=== PATIENT | male | born 1960 | race Caucasian/White ===

== ENCOUNTER 2016-12-17 10:43 | Inpatient (IN) | payer OTHER ==
[2016-12-17 11:10] VITALS: BMI 24.0
--- NOTE | 2016-12-17 12:51 | HP ---
CIWA Score - CIWA Score Nausea/Vomitin Muscle Tremors: 3 Anxiety: 3 Agitation: 2 Paroxysmal Sweats: 1-Minimal Palms Moist Orientation: 0-Oriented Tacttile Disturbances: 1-Very Mild Itch/Numbness Auditory Disturbances: 1-Very Mild Visual Disturbances: 1-Very Mild Sensitivity Headache: 2-Mild CIWA-Ar Total Score: 17 Admission ROS BHS - HPI Chief Complaint: i need help to stop drinking alcohol Allergies/Adverse Reactions: Allergies Allergy/AdvReac Type Severity Reaction Status Date / Time No Known Allergies Allergy Verified 12/17/16 12:40 History of Present Illness: this 56 years old male with alcohol dependence,seeking detox from alcohol,last detox [facility] 10/02/15 to 10/05/15 syncope alcohol related low back pain s/p back surgery depression hiv since 1989 ambulation with [employer] screening Have you traveled outside of the country in the last 21 days: No Have you had contact with anyone from an Ebola affected area: No Have you been sick,other than usual withdrawal symptoms: No - Review of Systems Constitutional: Loss of Appetite, Malaise, Night Sweats, Changes in sleep EENT: reports: No Symptoms Reported, Nose Congestion Respiratory: reports: No Symptoms reported Cardiac: reports: No Symptoms Reported GI: reports: Nausea, Poor Appetite, Abdominal cramping : reports: No Symptoms Reported Musculoskeletal: reports: Back Pain, Muscle Pain Integumentary: reports: Dryness Endocrine: reports: No Symptoms Reported Hematology: reports: No Symptoms Reported, Other (hiv) Psychiatric: reports: No Sypmtoms Reported, Judgement Intact, Mood/Affect Appropiate, Orientated x3, Depressed Patient History - Patient Medical History Hx Asthma: Yes Hx Chronic Obstructive Pulmonary Disease (COPD): No Hx Cardiac Disorders: No Hx Hypertension: No Hx Seizures: No Hx Diabetes: No Hx Gastrointestinal Disorders: No Hx Genitourinary Disorders: No Hx Sexually Transmitted Disorders: No Hx Renal Disease (ESRD): No Hx Human Immunodeficiency Virus (HIV): Yes (since 1989) Hx Hepatitis C: No Hx Depression: Yes (insomnia) Hx Suicide Attempt: No Hx Bipolar Disorder: No Hx Schizophrenia: No Other Medical History: no suicidal,no homicidal - Patient Surgical History Past Surgical History: Yes Hx Neurologic Surgery: No Hx Cataract Extraction: No Hx Cardiac Surgery: No Hx Lung Surgery: No Hx Breast Surgery: No Hx Breast Biopsy: No Hx Abdominal Surgery: No Hx Appendectomy: No Hx Cholecystectomy: No Hx Genitourinary Surgery: Yes (s/p lithotripsy) Hx Section: No Hx Orthopedic Surgery: No Other Surgical History: strabismus correction in childhood.,surgery of back Anesthesia Reaction: No - PPD History Previous Implant?: Yes Documented Results: Negative w/o proof Implanted On Prior [facility] Admission?: Yes Date: 10/04/15 PPD to be Administered?: Yes - Smoking Cessation Smoking history: Current every day smoker Have you smoked in the past 12 months: Yes Aproximately how many cigarettes per day: 20 Hx Chewing Tobacco Use: No Initiated information on smoking cessation: Yes 'Breaking Loose' booklet given: 12/17/16 - Substance & Tx. History Hx Alcohol Use: Yes Hx Substance Use: No Substance Use Type: Alcohol Hx Substance Use Treatment: Yes (last 10/02/15 to 10/05/15) - Substances Abused Alcohol Route: Oral Frequency: Daily Amount used: 2-3 pints gin or rum Age of first use: 9 Date of Last Use: 12/16/16 Family Disease History - Family Disease History Family History: Denies Admission Physical Exam S - Vital Signs Vital Signs: Vital Signs - 24 hr 12/17/16 11:07 Temperature 96.9 F L Pulse Rate 77 Respiratory 20 Rate Blood Pressure 145/100 - Physical General Appearance: Yes: Moderate Distress, Tremorous, Irritable, Sweating, Anxious HEENTM: Yes: Normal ENT Inspection, MARIO, Pharynx Normal Respiratory: Yes: Lungs Clear, Normal Breath Sounds, No Respiratory Distress Neck: Yes: No masses,lesions,Nodules, Supple, Trachea in good position Breast: Yes: Within Normal Limits Cardiology: Yes: Within Normal Limits, Regular Rhythm, Regular Rate, S1, S2 Abdominal: Yes: Within Normal Limits, Normal Bowel Sounds, Non Tender, Flat, Soft Genitourinary: Yes: Within Normal Limits Back: Yes: Muscle Spasm, Surgical Scar Musculoskeletal: Yes: Back pain, Muscle Pain Extremities: Yes: Tremors 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 NML intact, Fully Oriented, Alert, Motor Strength 5/5 Integumentary: Yes: Dry - Diagnostic (1) MDD (major depressive disorder) Current Visit: No Status: Acute (2) Nicotine dependence Current Visit: Yes Status: Chronic (3) Alcohol dependence with uncomplicated withdrawal Current Visit: Yes Status: Chronic (4) Arthritis Current Visit: Yes Status: Chronic (5) HIV (human immunodeficiency virus infection) Current Visit: No Status: Chronic (6) Insomnia Current Visit: No Status: Chronic (7) Low back pain Current Visit: Yes Status: Acute (8) Previous back surgery Current Visit: Yes Status: Chronic (9) Use of cane as ambulatory aid Current Visit: Yes Status: Acute Cleared for Admission [facility] - Detox or Rehab [facility] Level of Care: Medically Managed Detox Regimen/Protocol: Librium [facility] Breath Alcohol Content Breath Alcohol Content: 0.035 Urine Drug Screen - Results Drug Screen Negative: Yes
[2016-12-17] MEDS ORDERED: chlordiazePOXIDE HCL 25 MG CAPSULE PO PRN (13:03)
[2016-12-17] MEDS ORDERED: ACETAMINOPHEN 325 MG TABLET (FP) PO PRN (13:03)
[2016-12-17] MEDS ORDERED: hydrOXYzine PAMOATE 50 MG CAPSULE (FP) PO PRN (13:03)
[2016-12-17] MEDS ORDERED: guaiFENesin/D-METHORPHAN HB 10 ML UNIT-DOSE CUPS PO PRN (13:03)
[2016-12-17] MEDS ORDERED: MAGNESIUM CITRATE 300 ML BOTTLE PO PRN (13:03)
[2016-12-17] MEDS ORDERED: P-EPHED 60MG/TRIPROLIDI 2.5MG TABLET PO PRN (13:03)
[2016-12-17] MEDS ORDERED: MAGNESIUM HYDROX 2400MG/30ML ORAL SUSPENSION 30 ML CUP PO PRN (13:03)
[2016-12-17] MEDS ORDERED: MENTHOL/PHENOL 1 EACH UD MM PRN (13:03)
[2016-12-17] MEDS ORDERED: IBUPROFEN 400 MG TABLET (FP) PO PRN (13:03)
[2016-12-17] MEDS ORDERED: LOPERAMIDE HCL 2 MG CAPSULE PO PRN (13:03)
[2016-12-17] MEDS ORDERED: chlordiazePOXIDE HCL 25 MG CAPSULE PO ONE (13:52)
[2016-12-17] MEDS: NICOTINE 21 MG/24 HOURS TOPICAL PATCH TD SCH (15:21)
--- NOTE | 2016-12-17 16:09 | CONSULT ---
[facility] Psychiatric Consult - Data Date of interview: 12/17/16 Admission source: [facility] Identifying data: The patient is 56 yo H male,supported by [facility], unemployed,domiciled admitted for Alcohol dpendence. Substance Abuse History: REports drinking since 12 years old,progressively , currently up to gallon of Baccardi daily. Medical History: Significant for HIV+,Low back pain,H/O Low back surgery . Psychiatric History: REports long history of depression with 4 previous psychiatric hospitalizations.Dx with MDD,has been on different antidepressants.Patient sees psychiatrist at [facility].Current medications: Neurontin 600 mg po tid,Ambien 10 mg po hs PRN for insomnia. Physical/Sexual Abuse/Trauma History: denies Mental Status Exam - Mental Status Exam Alert and Oriented to: Time, Place, Person Cognitive Function: Grossly Intact Patient Appearance: Unkempt Mood: Sad, Anxious Affect: Mood Congruent Patient Behavior: Cooperative Speech Pattern: Clear Voice Loudness: Normal Thought Process: Goal Oriented Thought Disorder: Not Present Hallucinations: Denies Suicidal Ideation: Denies Homicidal Ideation: Denies Insight/Judgement: Fair Sleep: Difficulty falling asleep Appetite: Good Muscle strength/Tone: Normal Gait/Station: Normal Psychiatric Findings - Problem List ([place] 1, 2,3) (1) Previous back surgery Current Visit: Yes Status: Chronic (2) Nicotine dependence Current Visit: Yes Status: Chronic (3) Alcohol dependence with uncomplicated withdrawal Current Visit: Yes Status: Chronic (4) Arthritis Current Visit: Yes Status: Chronic (5) Low back pain Current Visit: Yes Status: Chronic (6) MDD (major depressive disorder) Current Visit: Yes Status: Chronic - Initial Treatment Plan Initial Treatment Plan: Continue Neurontin 600 mg po tid.Add Ambien 10 mg po hs PRN for insomnia.Will monitor progress.
[2016-12-17] MEDS: chlordiazePOXIDE HCL 25 MG CAPSULE PO SCH ×2 (17:38→22:17)
[2016-12-17 18:24] LABS: URINE APPEARANCE CLEAR; URINE BILIRUBIN NEGATIVE (NEGATIVE); URINE COLOR LTYELLOW; URINE GLUCOSE (UA) NEGATIVE (NEGATIVE); URINE KETONE 1+ (NEGATIVE); URINE LEUK ESTERASE NEGATIVE (NEGATIVE); URINE NITRITE NEGATIVE (NEGATIVE); URINE PROTEIN NEGATIVE (NEGATIVE); URINE UROBILINOGEN NEGATIVE E.U./dl (0.2-1.0)
[2016-12-17 18:27] LABS: URINE BLOOD 1+ (NEGATIVE)
[2016-12-17 18:32] LABS: URINE MUCUS RARE; URINE RBC 2 /hpf (0-3); URINE WBC 4 /hpf (3-5)
[2016-12-17] MEDS: GABAPENTIN 300 MG CAPSULE (FP) PO SCH (22:17)
[2016-12-17] MEDS: ZOLPIDEM TARTRATE 10 MG TABLET (PARK CARE ONLY) PO PRN (22:17)
[2016-12-17] MEDS: THIAMINE HCL 100 MG TABLET (FP) PO SCH (22:17)
[2016-12-18] MEDS: chlordiazePOXIDE HCL 25 MG CAPSULE PO SCH ×4 (05:40→22:23)
[2016-12-18] MEDS: GABAPENTIN 300 MG CAPSULE (FP) PO SCH ×3 (05:40→22:24)
[2016-12-18] MEDS: RITONAVIR 100 MG TABLET PO SCH (07:28)
[2016-12-18] MEDS: ATAZANAVIR SO4 300 MG CAPSULE PO SCH (07:28)
--- NOTE | 2016-12-18 09:33 | PN ---
BHS Progress Note (SOAP) Subjective: interrupted sleep, tired , lbp Objective: 12/18/16 09:32 Vital Signs Temperature 96.6 F L 12/18/16 06:00 Pulse Rate 72 12/18/16 06:00 Respiratory Rate 18 12/18/16 06:00 Blood Pressure 140/91 12/18/16 06:00 O2 Sat by Pulse Oximetry (%) Laboratory Tests 12/17/16 14:00 Urine Color Ltyellow Urine Appearance Clear Urine pH 6.0 Ur Specific [place] 1.020 Urine Protein Negative Urine Glucose (UA) Negative Urine Ketones 1+ H Urine Blood 1+ H Urine Nitrite Negative Urine Bilirubin Negative Urine Urobilinogen Negative Ur Leukocyte Esterase Negative Urine RBC 2 Urine WBC 4 Urine Mucus Rare 12/18/16 13:02 Laboratory Tests 12/17/16 12/18/16 12/18/16 14:00 06:00 06:00 WBC 4.7 D RBC 5.06 Hgb 12.7 Hct 40.2 MCV 79.4 L MCHC 31.6 L RDW 15.7 Plt Count 138 D MPV 8.9 Sodium 141 Potassium 3.9 D Chloride 103 Carbon Dioxide 28 Anion Gap 10 BUN 15 D Creatinine 0.9 Creat Clearance w eGFR > 60 Random Glucose 75 D Calcium 8.8 Total Bilirubin 0.5 D AST 32 D ALT 34 D Alkaline Phosphatase 97 D Total Protein 7.6 Albumin 4.2 D Urine Color Ltyellow Urine Appearance Clear Urine pH 6.0 Ur Specific [place] 1.020 Urine Protein Negative Urine Glucose (UA) Negative Urine Ketones 1+ H Urine Blood 1+ H Urine Nitrite Negative Urine Bilirubin Negative Urine Urobilinogen Negative Ur Leukocyte Esterase Negative Urine RBC 2 Urine WBC 4 Urine Mucus Rare RPR Titer 12/18/16 06:00 WBC RBC Hgb Hct MCV MCHC RDW Plt Count MPV Sodium Potassium Chloride Carbon Dioxide Anion Gap BUN Creatinine Creat Clearance w eGFR Random Glucose Calcium Total Bilirubin AST ALT Alkaline Phosphatase Total Protein Albumin Urine Color Urine Appearance Urine pH Ur Specific [place] Urine Protein Urine Glucose (UA) Urine Ketones Urine Blood Urine Nitrite Urine Bilirubin Urine Urobilinogen Ur Leukocyte Esterase Urine RBC Urine WBC Urine Mucus RPR Titer Nonreactive pt aox3 lying in bed mild tremor 12/18/16 13:04 Assessment: 12/18/16 09:32 withdrawal sx's hiv lbp 12/18/16 13:04 Plan: cont. detox increase fluids motrin prn
[2016-12-18 10:14] LABS: MCH 25.1 pg (25.7-33.7); MCHC 31.6 g/dl (32.0-35.9); MEAN CELL VOLUME 79.4 fl (80-96); MEAN PLT VOLUME 8.9 fl (7.5-11.1); PLATELET COUNT 138 K/MM3 (134-434); RDW 15.7 % (11.9-15.9); WHITE BLOOD COUNT 4.7 K/mm3 (4.0-10.0)
[2016-12-18] MEDS: PRENATAL VITAMINS W/ FOLIC ACID TABLET (FP) PO SCH (11:00)
[2016-12-18] MEDS: NICOTINE 21 MG/24 HOURS TOPICAL PATCH TD SCH (11:01)
[2016-12-18] MEDS: EMTRICITABINE 200MG/TENOFOVIR 300MG PO SCH (11:01)
[2016-12-18 11:09] LABS: ALBUMIN 4.2 g/dl (3.4-5.0); ALK PHOS 97 U/L (45-117); ANION GAP 10 (8-16); BILIRUBIN,TOTAL 0.5 mg/dL (0.2-1.0); CALCIUM 8.8 mg/dL (8.5-10.1); CO2 28 mmol/L (21-32); CREATININE 0.9 mg/dL (0.7-1.3); GLUCOSE,RANDOM 75 mg/dL (74-106); SGOT/AST 32 U/L (15-37); SGPT/ALT 34 U/L (12-78); TOT PROT 7.6 g/dl (6.4-8.2)
[2016-12-18] MEDS: IBUPROFEN 400 MG TABLET (FP) PO PRN (11:13)
[2016-12-18] MEDS ORDERED: PNEUMOC 13-VAL CONJ-DIP CRM/PF 0.5 ML DISP.SYRIN IM ONE (12:00)
--- NOTE | 2016-12-18 15:50 | EKG ---
Test Reason : Blood Pressure : / mmHG Vent. Rate : 077 BPM Atrial Rate : 077 BPM P-R Int : 150 ms QRS Dur : 094 ms QT Int : 402 ms P-R-T Axes : 070 029 048 degrees QTc Int : 454 ms NORMAL SINUS RHYTHM NORMAL ECG NO PREVIOUS ECGS AVAILABLE Confirmed by JENNI ROMERO MD ([id number]) on 12/18/2016 3:50:44 PM Referred By: Confirmed By:JENNI ROMERO MD
[2016-12-18] MEDS: THIAMINE HCL 100 MG TABLET (FP) PO SCH (22:23)
[2016-12-18] MEDS: ZOLPIDEM TARTRATE 10 MG TABLET (PARK CARE ONLY) PO PRN (22:25)
[2016-12-19] MEDS: GABAPENTIN 300 MG CAPSULE (FP) PO SCH ×3 (05:28→22:08)
[2016-12-19] MEDS: IBUPROFEN 400 MG TABLET (FP) PO PRN (05:29)
[2016-12-19] MEDS: chlordiazePOXIDE HCL 25 MG CAPSULE PO SCH ×2 (05:29→10:33)
[2016-12-19] MEDS: ATAZANAVIR SO4 300 MG CAPSULE PO SCH (08:05)
[2016-12-19] MEDS: RITONAVIR 100 MG TABLET PO SCH (08:06)
[2016-12-19] MEDS: PRENATAL VITAMINS W/ FOLIC ACID TABLET (FP) PO SCH (10:33)
[2016-12-19] MEDS: NICOTINE 21 MG/24 HOURS TOPICAL PATCH TD SCH (10:34)
[2016-12-19] MEDS: EMTRICITABINE 200MG/TENOFOVIR 300MG PO SCH (10:34)
--- NOTE | 2016-12-19 15:38 | PN ---
[facility] CIWA - CIWA Score Nausea/Vomitin-No Nausea/No Vomiting Muscle Tremors: 4-Moderate,w/Arms Extend Anxiety: 4-Mod. Anxious/Guarded Agitation: 3 Paroxysmal Sweats: 3 Orientation: 0-Oriented Tacttile Disturbances: 0-None Auditory Disturbances: 0-None Visual Disturbances: 0-None Headache: 0-None Present CIWA-Ar Total Score: 14 S Progress Note (SOAP) Subjective: Anxiety,tremors,sweating,interrupted sleep,restless,body aches Objective: 12/19/16 15:37 Vital Signs - 8 hr 12/19/16 12/19/16 10:00 14:00 Temperature 98.1 F 97.0 F L Pulse Rate 95 H 96 H Respiratory 16 18 Rate Blood Pressure 132/88 134/90 Laboratory Last Values WBC 4.7 K/mm3 (4.0-10.0) D 12/18/16 06:00 RBC 5.06 M/mm3 (4.00-5.60) 12/18/16 06:00 Hgb 12.7 GM/dL (11.7-16.9) 12/18/16 06:00 Hct 40.2 % (35.4-49) 12/18/16 06:00 MCV 79.4 fl (80-96) L 12/18/16 06:00 MCHC 31.6 g/dl (32.0-35.9) L 12/18/16 06:00 RDW 15.7 % (11.9-15.9) 12/18/16 06:00 Plt Count 138 K/MM3 (134-434) D 12/18/16 06:00 MPV 8.9 fl (7.5-11.1) 12/18/16 06:00 Sodium 141 mmol/L (136-145) 12/18/16 06:00 Potassium 3.9 mmol/L (3.5-5.1) D 12/18/16 06:00 Chloride 103 mmol/L (98-107) 12/18/16 06:00 Carbon Dioxide 28 mmol/L (21-32) 12/18/16 06:00 Anion Gap 10 (8-16) 12/18/16 06:00 BUN 15 mg/dL (7-18) D 12/18/16 06:00 Creatinine 0.9 mg/dL (0.7-1.3) 12/18/16 06:00 Creat Clearance w eGFR > 60 (>60) 12/18/16 06:00 Random Glucose 75 mg/dL (74-106) D 12/18/16 06:00 Calcium 8.8 mg/dL (8.5-10.1) 12/18/16 06:00 Total Bilirubin 0.5 mg/dL (0.2-1.0) D 12/18/16 06:00 AST 32 U/L (15-37) D 12/18/16 06:00 ALT 34 U/L (12-78) D 12/18/16 06:00 Alkaline Phosphatase 97 U/L (45-117) D 12/18/16 06:00 Total Protein 7.6 g/dl (6.4-8.2) 12/18/16 06:00 Albumin 4.2 g/dl (3.4-5.0) D 12/18/16 06:00 Urine Color Ltyellow 12/17/16 14:00 Urine Appearance Clear 12/17/16 14:00 Urine pH 6.0 (5.0-8.0) 12/17/16 14:00 Ur Specific [place] 1.020 (1.005-1.025) 12/17/16 14:00 Urine Protein Negative (NEGATIVE) 12/17/16 14:00 Urine Glucose (UA) Negative (NEGATIVE) 12/17/16 14:00 Urine Ketones 1+ (NEGATIVE) H 12/17/16 14:00 Urine Blood 1+ (NEGATIVE) H 12/17/16 14:00 Urine Nitrite Negative (NEGATIVE) 12/17/16 14:00 Urine Bilirubin Negative (NEGATIVE) 12/17/16 14:00 Urine Urobilinogen Negative E.U./dl (0.2-1.0) 12/17/16 14:00 Ur Leukocyte Esterase Negative (NEGATIVE) 12/17/16 14:00 Urine RBC 2 /hpf (0-3) 12/17/16 14:00 Urine WBC 4 /hpf (3-5) 12/17/16 14:00 Urine Mucus Rare 12/17/16 14:00 RPR Titer Nonreactive (NONREACTIVE) 12/18/16 06:00 labs noted Assessment: 12/19/16 15:37 Withdrawal sx. Plan: Continue detox
[2016-12-19] MEDS: LIDOCAINE 5% TOPICAL PATCH TP SCH (15:56)
[2016-12-19] MEDS: chlordiazePOXIDE 5 MG CAPSULE PO SCH ×2 (17:16→22:08)
[2016-12-19] MEDS: ZOLPIDEM TARTRATE 10 MG TABLET (PARK CARE ONLY) PO PRN (22:08)
[2016-12-19] MEDS: THIAMINE HCL 100 MG TABLET (FP) PO SCH (22:08)
[2016-12-19] MEDS: LIDOCAINE PATCH REMOVAL MC SCH (22:12)
[2016-12-20] MEDS: MAG HYDROX/AL HYDROX/SIMETH 30 ML UNIT-DOSE CUP PO PRN ×2 (01:20→16:36)
[2016-12-20] MEDS: diphenhydrAMINE HCL 50 MG CAPSULE PO PRN ×2 (01:20→22:21)
[2016-12-20] MEDS: chlordiazePOXIDE 5 MG CAPSULE PO SCH ×2 (05:11→10:13)
[2016-12-20] MEDS: GABAPENTIN 300 MG CAPSULE (FP) PO SCH ×3 (05:12→22:20)
[2016-12-20] MEDS: EMTRICITABINE 200MG/TENOFOVIR 300MG PO SCH (10:13)
[2016-12-20] MEDS: RITONAVIR 100 MG TABLET PO SCH (10:13)
[2016-12-20] MEDS: LIDOCAINE 5% TOPICAL PATCH TP SCH (10:13)
[2016-12-20] MEDS: ATAZANAVIR SO4 300 MG CAPSULE PO SCH (10:13)
[2016-12-20] MEDS: PRENATAL VITAMINS W/ FOLIC ACID TABLET (FP) PO SCH (10:13)
[2016-12-20] MEDS: NICOTINE 21 MG/24 HOURS TOPICAL PATCH TD SCH (10:14)
--- NOTE | 2016-12-20 11:19 | PN ---
BHS Progress Note (SOAP) Subjective: ALERT,IRRITABLE,INTERRUPTED SLEEP Objective: 12/20/16 11:18 Vital Signs Temperature 98.1 F 12/20/16 10:17 Pulse Rate 98 H 12/20/16 10:17 Respiratory Rate 16 12/20/16 10:17 Blood Pressure 134/92 12/20/16 10:17 O2 Sat by Pulse Oximetry (%) Assessment: 12/20/16 11:18 WITHDRAWAL SYMPTOM Plan: CONTINUE DETOX,DISCHARGE IN AM
[2016-12-20] MEDS: chlordiazePOXIDE HCL 10 MG CAPSULE PO SCH ×3 (16:49→22:21)
--- NOTE | 2016-12-20 17:56 | PN ---
BHS Progress Note Note: HISTORY OF ASTHMA ON ALBUTEROL INHALER,ALBUTEROL INHALER 2 PUFFS Q 4 HRS PRN FOR ASTHMA MONITORING
[2016-12-20] MEDS: LIDOCAINE PATCH REMOVAL MC SCH (22:20)
[2016-12-20] MEDS: ALBUTEROL SO4 6.7 GM HFA INHALER IH PRN (22:21)
[2016-12-20] MEDS: THIAMINE HCL 100 MG TABLET (FP) PO SCH (22:21)
[2016-12-21] MEDS: chlordiazePOXIDE HCL 10 MG CAPSULE PO SCH ×2 (05:37→10:27)
[2016-12-21] MEDS: GABAPENTIN 300 MG CAPSULE (FP) PO SCH ×2 (05:37→13:36)
[2016-12-21 06:01] VITALS: TEMP 97.2
[2016-12-21] MEDS: IBUPROFEN 400 MG TABLET (FP) PO PRN (06:04)
[2016-12-21 07:34] VITALS: BP 136/85; PULSE 94
[2016-12-21] MEDS: ATAZANAVIR SO4 300 MG CAPSULE PO SCH (07:52)
[2016-12-21] MEDS: RITONAVIR 100 MG TABLET PO SCH (07:52)
[2016-12-21] MEDS: ALBUTEROL SO4 6.7 GM HFA INHALER IH PRN (09:03)
[2016-12-21] MEDS: PRENATAL VITAMINS W/ FOLIC ACID TABLET (FP) PO SCH (10:27)
[2016-12-21] MEDS: LIDOCAINE 5% TOPICAL PATCH TP SCH (10:27)
[2016-12-21] MEDS: EMTRICITABINE 200MG/TENOFOVIR 300MG PO SCH (10:27)
[2016-12-21] MEDS: NICOTINE 21 MG/24 HOURS TOPICAL PATCH TD SCH (10:28)
--- NOTE | 2016-12-21 11:56 | DS ---
[facility] Detox Discharge Summary Admission Date: 12/17/16 Discharge Date: 12/21/16 - History Present History: Alcohol Dependence Additional Comments: ADVISED PATIENT TO FOLLOW-UP WITH [facility] / REHAB MEDICAL PROVIDER AFTER DISCHARGE FROM DETOX [facility]. Pertinent Past History: Asthma, Insomnia, HIV +, Arthritis. - Physical Exam Results Vital Signs: Vital Signs Temperature 97.2 F L 12/21/16 05:59 Pulse Rate 94 H 12/21/16 07:30 Respiratory Rate 18 12/21/16 07:30 Blood Pressure 136/85 12/21/16 07:30 O2 Sat by Pulse Oximetry (%) Pertinent Admission Physical Exam Findings: WITHDRAWAL SYMPTOMS. Laboratory Tests 12/17/16 12/18/16 12/18/16 14:00 06:00 06:00 WBC 4.7 D RBC 5.06 Hgb 12.7 Hct 40.2 MCV 79.4 L MCHC 31.6 L RDW 15.7 Plt Count 138 D MPV 8.9 Sodium 141 Potassium 3.9 D Chloride 103 Carbon Dioxide 28 Anion Gap 10 BUN 15 D Creatinine 0.9 Creat Clearance w eGFR > 60 Random Glucose 75 D Calcium 8.8 Total Bilirubin 0.5 D AST 32 D ALT 34 D Alkaline Phosphatase 97 D Total Protein 7.6 Albumin 4.2 D Urine Color Ltyellow Urine Appearance Clear Urine pH 6.0 Ur Specific [place] 1.020 Urine Protein Negative Urine Glucose (UA) Negative Urine Ketones 1+ H Urine Blood 1+ H Urine Nitrite Negative Urine Bilirubin Negative Urine Urobilinogen Negative Ur Leukocyte Esterase Negative Urine RBC 2 Urine WBC 4 Urine Mucus Rare RPR Titer 12/18/16 06:00 WBC RBC Hgb Hct MCV MCHC RDW Plt Count MPV Sodium Potassium Chloride Carbon Dioxide Anion Gap BUN Creatinine Creat Clearance w eGFR Random Glucose Calcium Total Bilirubin AST ALT Alkaline Phosphatase Total Protein Albumin Urine Color Urine Appearance Urine pH Ur Specific [place] Urine Protein Urine Glucose (UA) Urine Ketones Urine Blood Urine Nitrite Urine Bilirubin Urine Urobilinogen Ur Leukocyte Esterase Urine RBC Urine WBC Urine Mucus RPR Titer Nonreactive LABS NOTED. - Treatment Hospital Course: Detox Protocol Followed, Detoxed Safely, Responded well, Discharged Condition Good, Rehab Referral Accepted Patient has Accepted a Rehab Referral to: [facility]. - Medication Discharge Medications: Ambulatory Orders Atazanavir [Reyataz -] 300 mg PO DAILY 10/02/15 Emtricitabine/Tenofovir [Truvada] 1 tab PO DAILY 10/02/15 Ritonavir [Norvir -] 100 mg PO DAILY 10/02/15 Gabapentin [Neurontin -] 600 mg PO TID #120 cap 12/17/16 Gabapentin [Neurontin] 600 mg PO TID 12/17/16 Ibuprofen 800 mg PO Q8H PRN 12/17/16 Multivitamin with Minerals [Icaps Plus] 1 each PO DAILY 12/17/16 - Diagnosis (1) Use of cane as ambulatory aid Current Visit: Yes Status: Acute (2) Alcohol dependence with uncomplicated withdrawal Current Visit: Yes Status: Acute (3) Arthritis Current Visit: Yes Status: Chronic (4) Low back pain Current Visit: Yes Status: Chronic Qualifiers: Chronicity: unspecified Back pain laterality: unspecified Sciatica presence: unspecified whether sciatica present Qualified Code(s): M54.5 - Low back pain (5) MDD (major depressive disorder) Current Visit: Yes Status: Chronic Qualifiers: Major depression recurrence: recurrent Active/Remission status: remission status unspecified Qualified Code(s): F33.9 - Major depressive disorder, recurrent, unspecified (6) Nicotine dependence Current Visit: Yes Status: Chronic Qualifiers: Nicotine product type: cigarettes Substance use status: uncomplicated Qualified Code(s): F17.210 - Nicotine dependence, cigarettes, uncomplicated (7) Previous back surgery Current Visit: Yes Status: Chronic (8) HIV (human immunodeficiency virus infection) Current Visit: Yes Status: Chronic (9) Insomnia Current Visit: Yes Status: Chronic Qualifiers: Insomnia type: unspecified Qualified Code(s): G47.00 - Insomnia, unspecified - AMA Did Patient Leave Against Medical Advice: No
== END 2016-12-21 13:38 | disposition home or self-care (01) | DRG 775 ==
LOC: YASAS 10:43 → Y6N 12:58
PROVIDERS: ADMIT Internal Medicine; ATTEND Internal Medicine
PROC: HZ2ZZZZ Detoxification Services for Substance Abuse Treatment (ICD-10-PCS; principal; 2016-12-21)
DX: F10.230 Alcohol dependence with withdrawal, uncomplicated (principal); F17.210 Nicotine dependence, cigarettes, uncomplicated; F33.9 Major depressive disorder, recurrent, unspecified; G47.00 Insomnia, unspecified; M12.9 Arthropathy, unspecified; M54.5 Low back pain; Z21 Asymptomatic human immunodeficiency virus [HIV] infection status; R26.89 Other abnormalities of gait and mobility; Z99.89 Dependence on other enabling machines and devices
CPT/HCPCS: 36415; 80053; 81003; 81015; 85027; 86593; 90670; 93005; 93010

== ENCOUNTER 2016-12-21 13:57 | Inpatient (IN) | payer OTHER ==
[2016-12-21] MEDS ORDERED: guaiFENesin/D-METHORPHAN HB 10 ML UNIT-DOSE CUPS PO PRN (15:26)
[2016-12-21] MEDS ORDERED: IBUPROFEN 400 MG TABLET (FP) PO PRN (15:26)
[2016-12-21] MEDS ORDERED: MAGNESIUM HYDROX 2400MG/30ML ORAL SUSPENSION 30 ML CUP PO PRN (15:26)
[2016-12-21] MEDS ORDERED: ACETAMINOPHEN 325 MG TABLET (FP) PO PRN (15:26)
[2016-12-21] MEDS ORDERED: LOPERAMIDE HCL 2 MG CAPSULE PO PRN (15:26)
[2016-12-21] MEDS ORDERED: MAGNESIUM CITRATE 300 ML BOTTLE PO PRN (15:26)
[2016-12-21] MEDS ORDERED: P-EPHED 60MG/TRIPROLIDI 2.5MG TABLET PO PRN (15:26)
[2016-12-21] MEDS ORDERED: MAG HYDROX/AL HYDROX/SIMETH 30 ML UNIT-DOSE CUP PO PRN (15:26)
[2016-12-21] MEDS ORDERED: MENTHOL/PHENOL 1 EACH UD MM PRN (15:26)
--- NOTE | 2016-12-21 15:34 | HP ---
[facility] Rehab Assess/Revision - Admission History Admitted to Rehab from: [facility] [address] [place] Date of Admission to Rehab: 12/21/16 - Findings Detox History & Physical reviewed: Yes Concur with findings: Yes Comments/Additional Findings: FOR REHAB PROTOCOL
[2016-12-21] MEDS: IBUPROFEN 400 MG TABLET (FP) PO PRN (16:22)
[2016-12-21] MEDS: hydrOXYzine PAMOATE 50 MG CAPSULE (FP) PO PRN (16:56)
[2016-12-21] MEDS: diphenhydrAMINE HCL 50 MG CAPSULE PO PRN (21:29)
[2016-12-21] MEDS: THIAMINE HCL 100 MG TABLET (FP) PO SCH (21:29)
[2016-12-21] MEDS ORDERED: GABAPENTIN 400 MG CAPSULE (FP) PO SCH (22:00)
[2016-12-21] MEDS: GABAPENTIN 300 MG CAPSULE (FP) PO SCH (22:16)
[2016-12-22] MEDS: GABAPENTIN 300 MG CAPSULE (FP) PO SCH ×3 (06:07→21:41)
[2016-12-22] MEDS: PRENATAL VITAMINS W/ FOLIC ACID TABLET (FP) PO SCH (10:18)
[2016-12-22] MEDS: NICOTINE 21 MG/24 HOURS TOPICAL PATCH TD SCH (10:19)
[2016-12-22] MEDS: EMTRICITABINE 200MG/TENOFOVIR 300MG PO SCH (11:19)
[2016-12-22] MEDS: ATAZANAVIR SO4 300 MG CAPSULE PO SCH (11:20)
[2016-12-22] MEDS: RITONAVIR 100 MG TABLET PO SCH (11:20)
[2016-12-22] MEDS: hydrOXYzine PAMOATE 50 MG CAPSULE (FP) PO PRN (13:40)
--- NOTE | 2016-12-22 13:44 | HP ---
Psychiatrist Admission - Data Date of interview: 12/22/16 Admission source: 3N Identifying data: This is the first 5N inpatient rehabilitation admission for this 56 year old single male residing alone in [facility] and supported on SSI and HASA. Medical History: Significant for history of Asthma, Backache, Arthritis, S/P Lithotripsy and S/ Strabismus correction, HIV + since 1989. Smokes cigarettes 1 PPD. Psychiatric History: Patient reports was diagnosed as Major Depressive Disorder and was hospitalized 4 times : [facility], [place] and most recent (2015) at [facility], reports he sees the psychiatrist at [facility] outpatient clinic and currently on Gabapentin 600 mg po tid and Zoloft 50 mg po daily, reports he is very anxious and has insomnia. Physical/Sexual Abuse/Trauma History: Denies history of sexual, pysical and verbal abuse. Vital Signs: Vital Signs - 24 hr 12/22/16 12/22/16 12/22/16 00:47 03:30 06:39 Temperature 97.9 F Pulse Rate 77 Respiratory 18 18 18 Rate Blood Pressure 135/88 Allergies/Adverse Reactions: Allergies Allergy/AdvReac Type Severity Reaction Status Date / Time No Known Allergies Allergy Verified 12/17/16 12:40 Date of last physical exam: 12/17/16 Concur with the findings of this exam: Yes - Substance Abuse/Tx History Hx Alcohol Use: Yes Hx Substance Use: Yes Substance Use Type: Alcohol (2-3 pints gin or rum) Hx Substance Use Treatment: Yes - Admission Criteria Previous failed treatment: Yes Poor recovery environment: Yes Comorbidities: Yes Lacks judgement: Yes Mental Status Exam - Mental Status Exam Alert and Oriented to: Time, Place, Person Cognitive Function: Grossly Intact Patient Appearance: Well Groomed Mood: Sad, Nervous, Anxious, Irritable Affect: Mood Congruent Patient Behavior: Appropriate, Cooperative Speech Pattern: Clear, Appropriate Voice Loudness: Normal Thought Process: Goal Oriented Thought Disorder: Not Present Hallucinations: Denies Suicidal Ideation: Denies Homicidal Ideation: Denies Insight/Judgement: Fair Sleep: Fair Appetite: Fair Muscle strength/Tone: Normal Gait/Station: Other Psychiatric Findings - Problem List ([place] 1, 2,3) (1) EtOH dependence Current Visit: No Status: Chronic (2) MDD (major depressive disorder) Current Visit: No Status: Chronic Qualifiers: (3) Nicotine dependence Current Visit: No Status: Chronic Qualifiers: - Initial Treatment Plan Initial Treatment Plan: will continue Zoloft, Gabapentin, add Sinequan 10 mg po hs, continue to monitor progress.
[2016-12-22] MEDS: ACAMPROSATE CALCIUM 333 MG TABLET.DR PO SCH ×2 (14:18→21:42)
[2016-12-22] MEDS: THIAMINE HCL 100 MG TABLET (FP) PO SCH (21:41)
[2016-12-22] MEDS: DOXEPIN HCL 10 MG CAPSULE PO SCH (21:41)
[2016-12-23] MEDS: diphenhydrAMINE HCL 50 MG CAPSULE PO PRN ×2 (01:40→22:17)
[2016-12-23] MEDS: ACAMPROSATE CALCIUM 333 MG TABLET.DR PO SCH ×3 (06:25→22:17)
[2016-12-23] MEDS: GABAPENTIN 300 MG CAPSULE (FP) PO SCH ×3 (06:25→22:17)
[2016-12-23] MEDS: IBUPROFEN 400 MG TABLET (FP) PO PRN ×2 (06:32→14:18)
--- NOTE | 2016-12-23 09:37 | PN ---
[facility] Progress Note Note: PATIENT WITH CHRONIC LOW BACK PAIN,HISTORY OF BACK SURGERY ON THE PAST, AMBULATION WITH THE CANE FOR AMBULATORY AID STATED HAS BEEN WEARING BACK BRACE LEFT IT AT HOME ALSO HAS RASH IN FACIAL AREA,REDNESS IMPRESSION LOW BACK PAIN S/P BACK SURGERY CONTACT DERMATITIS FACE TREATMENT MOTRIN 600 MGS PO Q 6HRS PRN FOR PAIN FLEXERIL 10 MGS PO TID PRN OBTAIN BACK BRACE IN DAYTIME 1% HYDROCORTISONE CREAM BID
[2016-12-23] MEDS: SERTRALINE HCL 50 MG TABLET (FP) PO SCH (10:16)
[2016-12-23] MEDS: EMTRICITABINE 200MG/TENOFOVIR 300MG PO SCH (10:16)
[2016-12-23] MEDS: RITONAVIR 100 MG TABLET PO SCH (10:16)
[2016-12-23] MEDS: PRENATAL VITAMINS W/ FOLIC ACID TABLET (FP) PO SCH (10:16)
[2016-12-23] MEDS: NICOTINE 21 MG/24 HOURS TOPICAL PATCH TD SCH (10:17)
[2016-12-23] MEDS: ATAZANAVIR SO4 300 MG CAPSULE PO SCH (10:17)
[2016-12-23] MEDS: CYCLOBENZAPRINE HCL 10 MG TABLET (FP) PO PRN ×2 (14:18→22:17)
[2016-12-23] MEDS: DOXEPIN HCL 10 MG CAPSULE PO SCH (22:17)
[2016-12-23] MEDS: THIAMINE HCL 100 MG TABLET (FP) PO SCH (22:17)
[2016-12-24] MEDS: ACAMPROSATE CALCIUM 333 MG TABLET.DR PO SCH ×3 (06:25→21:25)
[2016-12-24] MEDS: GABAPENTIN 300 MG CAPSULE (FP) PO SCH ×3 (06:25→21:26)
[2016-12-24] MEDS: IBUPROFEN 400 MG TABLET (FP) PO PRN (06:26)
[2016-12-24] MEDS: ATAZANAVIR SO4 300 MG CAPSULE PO SCH (10:09)
[2016-12-24] MEDS: RITONAVIR 100 MG TABLET PO SCH (10:09)
[2016-12-24] MEDS: SERTRALINE HCL 50 MG TABLET (FP) PO SCH (10:09)
[2016-12-24] MEDS: PRENATAL VITAMINS W/ FOLIC ACID TABLET (FP) PO SCH (10:10)
[2016-12-24] MEDS: hydrOXYzine PAMOATE 50 MG CAPSULE (FP) PO PRN (10:10)
[2016-12-24] MEDS: EMTRICITABINE 200MG/TENOFOVIR 300MG PO SCH (10:10)
[2016-12-24] MEDS: NICOTINE 21 MG/24 HOURS TOPICAL PATCH TD SCH (10:11)
--- NOTE | 2016-12-24 12:04 | PN ---
Psychiatric Progress Note Vital Signs: Vital Signs Period Temp Pulse Resp BP Sys/Bolivar Pulse Ox Last 24 Hr 98.1 F 79 18-18 145/84 Date of Session: 12/24/16 Chief Complaint:: progress update. HPI: Patient is addressing alcohol, nicotine dependence comorbid MDD. ROS: Significant for history of Asthma, Backache, Arthritis, S/P Lithotripsy and S/ Strabismus correction, HIV + since 1989 Current Medications: Active Medications Generic Name Dose Route Start Last Admin Trade Name Freq PRN Reason Stop Dose Admin Acamprosate 666 mg 12/22/16 14:00 12/24/16 06:25 Campral - PO 666 mg TID RAINER Administration Acetaminophen 650 mg 12/21/16 15:26 Tylenol - PO Q4H PRN FEVER OR PAIN Al Hydroxide/Mg Hydroxide 30 ml 12/21/16 15:26 Mylanta Oral Suspension - PO Q6H PRN DYSPEPSIA Atazanavir 300 mg 12/22/16 10:00 12/24/16 10:09 Reyataz - PO 300 mg DAILY RAINER Administration Cyclobenzaprine HCl 10 mg 12/23/16 09:39 12/23/16 22:17 Flexeril - PO 10 mg TID PRN Administration MUSCLE SPASMS Diphenhydramine HCl 50 mg 12/21/16 15:26 12/23/16 22:17 Benadryl - PO 50 mg HSMR1 PRN Administration FOR ITCHING Doxepin HCl 10 mg 12/22/16 22:00 12/23/16 22:17 Sinequan - PO 10 mg HS RAINER Administration Emtricitabine/Tenofovir 1 tab 12/22/16 10:00 12/24/16 10:10 Truvada PO 1 tab DAILY RAINER Administration Eucalyptus/Menthol/Phenol/Sorbitol 1 each 12/21/16 15:26 Cepastat Lozenge - MM Q4H PRN SORE THROAT Gabapentin 600 mg 12/21/16 22:00 12/24/16 06:25 Neurontin - PO 600 mg TID RAINER Administration Guaifenesin 10 ml 12/21/16 15:26 Robitussin Dm - PO Q6H PRN COUGH Hydroxyzine Pamoate 50 mg 12/21/16 15:26 12/24/16 10:10 Vistaril - PO 50 mg Q4H PRN Administration AGITATION Ibuprofen 800 mg 12/21/16 16:00 12/24/16 06:26 Motrin - PO 800 mg Q8H PRN Administration PAIN Ibuprofen 600 mg 12/23/16 09:38 Motrin - PO Q6H PRN PAIN Loperamide HCl 4 mg 12/21/16 15:26 Imodium - PO Q6H PRN DIARRHEA Magnesium Citrate 300 ml 12/21/16 15:26 Citroma - PO 12/25/16 10:01 Q2D PRN CONSTIPATION Magnesium Hydroxide 30 ml 12/21/16 15:26 Milk Of Magnesia - PO DAILY PRN CONSTIPATION Nicotine 21 mg 12/22/16 10:00 12/24/16 10:11 Nicoderm Patch - TD 21 mg DAILY RAINER Administration Multivit/Folic Acid/Iron 1 tab 12/22/16 10:00 12/24/16 10:10 Vitamins (Sjr) - PO 1 tab DAILY RAINER Administration Pseudoephedrine/Triprolidine 1 combo 12/21/16 15:26 Actifed - PO TID PRN NASAL CONGESTION Ritonavir 100 mg 12/22/16 10:00 12/24/16 10:09 Norvir - PO 100 mg DAILY RAINER Administration Sertraline HCl 100 mg 12/24/16 11:58 Zoloft - PO DAILY RAINER Thiamine HCl 100 mg 12/21/16 22:00 12/23/16 22:17 Vitamin B1 - PO 100 mg HS RAINER Administration Medication(s) Change(s): increase Zoloft 100 mg po daily. Current Side Effect: No Lab tests ordered: No Lab tests reviewed: Yes Provider note:: Patient was seen today, he adjusted to the unit, attends and participates in group discussions. He reports he sleeps better but still anxious all day. He spoke about his physical issues, interpesonal issues addressed as well, Supportive therapy provided, treatment plan discussed, patient agreed with recommendations, will continue to mnoitor progress. Total face to face time:: 35 Mental Status Exam - Mental Status Exam Alert and Oriented to: Time, Place, Person Cognitive Function: Good Patient Appearance: Well Groomed Mood: Anxious Affect: Appropriate, Mood Congruent Patient Behavior: Appropriate, Cooperative Speech Pattern: Clear, Appropriate Voice Loudness: Normal Thought Process: Goal Oriented Thought Disorder: Not Present Hallucinations: Denies Suicidal Ideation: Denies Homicidal Ideation: Denies Insight/Judgement: Fair Sleep: Poorly Appetite: Fair Muscle strength/Tone: Normal Gait/Station: Normal Psychiatric Treatment Plan - Problem List (1) EtOH dependence Current Visit: No (2) MDD (major depressive disorder) Current Visit: No Qualifiers: (3) Nicotine dependence Current Visit: No Qualifiers:
[2016-12-24] MEDS: DOXEPIN HCL 10 MG CAPSULE PO SCH (21:25)
[2016-12-24] MEDS: THIAMINE HCL 100 MG TABLET (FP) PO SCH (21:26)
[2016-12-24] MEDS: diphenhydrAMINE HCL 50 MG CAPSULE PO PRN (21:26)
[2016-12-25] MEDS: ACAMPROSATE CALCIUM 333 MG TABLET.DR PO SCH ×3 (06:11→21:16)
[2016-12-25] MEDS: GABAPENTIN 300 MG CAPSULE (FP) PO SCH ×3 (06:11→21:16)
[2016-12-25] MEDS: IBUPROFEN 400 MG TABLET (FP) PO PRN (06:12)
[2016-12-25] MEDS: NICOTINE 21 MG/24 HOURS TOPICAL PATCH TD SCH (09:55)
[2016-12-25] MEDS: RITONAVIR 100 MG TABLET PO SCH (10:22)
[2016-12-25] MEDS: SERTRALINE HCL 50 MG TABLET (FP) PO SCH (10:22)
[2016-12-25] MEDS: EMTRICITABINE 200MG/TENOFOVIR 300MG PO SCH (10:22)
[2016-12-25] MEDS: ATAZANAVIR SO4 300 MG CAPSULE PO SCH (10:22)
[2016-12-25] MEDS: PRENATAL VITAMINS W/ FOLIC ACID TABLET (FP) PO SCH (10:23)
[2016-12-25] MEDS: IBUPROFEN 600 MG TABLET (FP) PO PRN ×2 (10:24→21:18)
[2016-12-25] MEDS: CYCLOBENZAPRINE HCL 10 MG TABLET (FP) PO PRN (14:21)
[2016-12-25] MEDS: DOXEPIN HCL 10 MG CAPSULE PO SCH (21:17)
[2016-12-25] MEDS: THIAMINE HCL 100 MG TABLET (FP) PO SCH (21:17)
[2016-12-25] MEDS: diphenhydrAMINE HCL 50 MG CAPSULE PO PRN (21:18)
[2016-12-26] MEDS: hydrOXYzine PAMOATE 50 MG CAPSULE (FP) PO PRN (03:00)
[2016-12-26] MEDS: GABAPENTIN 300 MG CAPSULE (FP) PO SCH ×3 (06:09→21:39)
[2016-12-26] MEDS: ACAMPROSATE CALCIUM 333 MG TABLET.DR PO SCH ×3 (06:09→21:38)
[2016-12-26] MEDS: IBUPROFEN 400 MG TABLET (FP) PO PRN ×2 (06:10→15:18)
[2016-12-26] MEDS: PRENATAL VITAMINS W/ FOLIC ACID TABLET (FP) PO SCH (10:06)
[2016-12-26] MEDS: SERTRALINE HCL 50 MG TABLET (FP) PO SCH (10:06)
[2016-12-26] MEDS: EMTRICITABINE 200MG/TENOFOVIR 300MG PO SCH (10:06)
[2016-12-26] MEDS: RITONAVIR 100 MG TABLET PO SCH (10:06)
[2016-12-26] MEDS: ATAZANAVIR SO4 300 MG CAPSULE PO SCH (10:06)
[2016-12-26] MEDS: NICOTINE 21 MG/24 HOURS TOPICAL PATCH TD SCH (10:07)
[2016-12-26] MEDS: THIAMINE HCL 100 MG TABLET (FP) PO SCH (21:38)
[2016-12-26] MEDS: diphenhydrAMINE HCL 50 MG CAPSULE PO PRN (21:39)
[2016-12-26] MEDS: DOXEPIN HCL 10 MG CAPSULE PO SCH (21:39)
[2016-12-27] MEDS: ACAMPROSATE CALCIUM 333 MG TABLET.DR PO SCH ×3 (06:13→21:41)
[2016-12-27] MEDS: GABAPENTIN 300 MG CAPSULE (FP) PO SCH ×3 (06:13→21:41)
[2016-12-27] MEDS: IBUPROFEN 400 MG TABLET (FP) PO PRN ×2 (06:14→21:42)
[2016-12-27] MEDS ORDERED: ALBUTEROL SO4 0.083% IH SOL 2.5 MG/3 ML VIAL.NEB. NEB PRN (06:25)
[2016-12-27] MEDS: ATAZANAVIR SO4 300 MG CAPSULE PO SCH (09:53)
[2016-12-27] MEDS: PRENATAL VITAMINS W/ FOLIC ACID TABLET (FP) PO SCH (09:53)
[2016-12-27] MEDS: SERTRALINE HCL 50 MG TABLET (FP) PO SCH (09:53)
[2016-12-27] MEDS: EMTRICITABINE 200MG/TENOFOVIR 300MG PO SCH (09:53)
[2016-12-27] MEDS: NICOTINE 21 MG/24 HOURS TOPICAL PATCH TD SCH (09:53)
[2016-12-27] MEDS: RITONAVIR 100 MG TABLET PO SCH (09:53)
[2016-12-27] MEDS: DOXEPIN HCL 10 MG CAPSULE PO SCH (21:41)
[2016-12-27] MEDS: diphenhydrAMINE HCL 50 MG CAPSULE PO PRN (21:41)
[2016-12-27] MEDS: THIAMINE HCL 100 MG TABLET (FP) PO SCH (21:41)
[2016-12-28] MEDS: ACAMPROSATE CALCIUM 333 MG TABLET.DR PO SCH ×3 (06:16→21:11)
[2016-12-28] MEDS: GABAPENTIN 300 MG CAPSULE (FP) PO SCH ×3 (06:16→21:12)
[2016-12-28] MEDS: IBUPROFEN 400 MG TABLET (FP) PO PRN ×2 (06:16→14:20)
[2016-12-28] MEDS: EMTRICITABINE 200MG/TENOFOVIR 300MG PO SCH (09:57)
[2016-12-28] MEDS: ATAZANAVIR SO4 300 MG CAPSULE PO SCH (09:57)
[2016-12-28] MEDS: PRENATAL VITAMINS W/ FOLIC ACID TABLET (FP) PO SCH (09:57)
[2016-12-28] MEDS: SERTRALINE HCL 50 MG TABLET (FP) PO SCH (09:57)
[2016-12-28] MEDS: NICOTINE 21 MG/24 HOURS TOPICAL PATCH TD SCH (09:57)
[2016-12-28] MEDS: RITONAVIR 100 MG TABLET PO SCH (09:58)
[2016-12-28] MEDS ORDERED: PT OWN MED DRAWER 7, Y5N ONE (14:16)
[2016-12-28] MEDS: DOXEPIN HCL 10 MG CAPSULE PO SCH (21:11)
[2016-12-28] MEDS: THIAMINE HCL 100 MG TABLET (FP) PO SCH (21:12)
[2016-12-28] MEDS: diphenhydrAMINE HCL 50 MG CAPSULE PO PRN (21:12)
[2016-12-29] MEDS: diphenhydrAMINE HCL 50 MG CAPSULE PO PRN ×2 (01:50→21:07)
[2016-12-29] MEDS: ACAMPROSATE CALCIUM 333 MG TABLET.DR PO SCH ×3 (06:13→21:07)
[2016-12-29] MEDS: GABAPENTIN 300 MG CAPSULE (FP) PO SCH ×3 (06:13→21:07)
[2016-12-29] MEDS ORDERED: PT OWN MED DRAWER 7, Y5N ONE (09:35)
[2016-12-29] MEDS: NICOTINE 21 MG/24 HOURS TOPICAL PATCH TD SCH (10:27)
[2016-12-29] MEDS: ATAZANAVIR SO4 300 MG CAPSULE PO SCH (10:27)
[2016-12-29] MEDS: PRENATAL VITAMINS W/ FOLIC ACID TABLET (FP) PO SCH (10:27)
[2016-12-29] MEDS: RITONAVIR 100 MG TABLET PO SCH (10:27)
[2016-12-29] MEDS: SERTRALINE HCL 50 MG TABLET (FP) PO SCH (10:28)
[2016-12-29] MEDS: EMTRICITABINE 200MG/TENOFOVIR 300MG PO SCH (10:28)
[2016-12-29] MEDS: IBUPROFEN 400 MG TABLET (FP) PO PRN (10:29)
[2016-12-29] MEDS: THIAMINE HCL 100 MG TABLET (FP) PO SCH (21:07)
[2016-12-29] MEDS: DOXEPIN HCL 10 MG CAPSULE PO SCH (21:07)
[2016-12-29] MEDS: ALBUTEROL SO4 6.7 GM HFA INHALER IH PRN (21:08)
[2016-12-30] MEDS: diphenhydrAMINE HCL 50 MG CAPSULE PO PRN ×2 (00:25→21:07)
[2016-12-30] MEDS: ACAMPROSATE CALCIUM 333 MG TABLET.DR PO SCH ×3 (06:11→21:06)
[2016-12-30] MEDS: GABAPENTIN 300 MG CAPSULE (FP) PO SCH ×3 (06:11→21:36)
[2016-12-30] MEDS: IBUPROFEN 400 MG TABLET (FP) PO PRN (06:13)
[2016-12-30] MEDS: NICOTINE 21 MG/24 HOURS TOPICAL PATCH TD SCH (09:59)
[2016-12-30] MEDS: PRENATAL VITAMINS W/ FOLIC ACID TABLET (FP) PO SCH (09:59)
[2016-12-30] MEDS: ATAZANAVIR SO4 300 MG CAPSULE PO SCH (10:00)
[2016-12-30] MEDS: EMTRICITABINE 200MG/TENOFOVIR 300MG PO SCH (10:00)
[2016-12-30] MEDS: RITONAVIR 100 MG TABLET PO SCH (10:00)
[2016-12-30] MEDS: SERTRALINE HCL 50 MG TABLET (FP) PO SCH (10:00)
[2016-12-30] MEDS: THIAMINE HCL 100 MG TABLET (FP) PO SCH (21:06)
[2016-12-30] MEDS: DOXEPIN HCL 10 MG CAPSULE PO SCH (21:06)
[2016-12-30] MEDS: ALBUTEROL SO4 6.7 GM HFA INHALER IH PRN (21:10)
[2016-12-31] MEDS: diphenhydrAMINE HCL 50 MG CAPSULE PO PRN (00:45)
[2016-12-31] MEDS: ACAMPROSATE CALCIUM 333 MG TABLET.DR PO SCH ×3 (06:24→21:12)
[2016-12-31] MEDS: GABAPENTIN 300 MG CAPSULE (FP) PO SCH ×3 (06:24→21:12)
[2016-12-31] MEDS: SERTRALINE HCL 50 MG TABLET (FP) PO SCH (09:36)
[2016-12-31] MEDS: RITONAVIR 100 MG TABLET PO SCH (09:36)
[2016-12-31] MEDS: EMTRICITABINE 200MG/TENOFOVIR 300MG PO SCH (09:36)
[2016-12-31] MEDS: PRENATAL VITAMINS W/ FOLIC ACID TABLET (FP) PO SCH (09:36)
[2016-12-31] MEDS: ALBUTEROL SO4 6.7 GM HFA INHALER IH PRN ×2 (09:36→21:14)
[2016-12-31] MEDS: NICOTINE 21 MG/24 HOURS TOPICAL PATCH TD SCH (09:36)
[2016-12-31] MEDS: ATAZANAVIR SO4 300 MG CAPSULE PO SCH (09:36)
[2016-12-31] MEDS: IBUPROFEN 400 MG TABLET (FP) PO PRN (09:37)
--- NOTE | 2016-12-31 09:54 | PN ---
Psychiatric Progress Note Vital Signs: Vital Signs Period Temp Pulse Resp BP Sys/Bolivar Pulse Ox Last 24 Hr 97.3 F-98.0 F 69-80 16-18 119-126/83-85 Date of Session: 12/31/16 Chief Complaint:: progress update. HPI: Patient is addressing alcohol, nicotine dependence comorbid MDD. ROS: history of Asthma, Backache, Arthritis, HIV+ medically managed, S/P Lithotripsy and S/ Strabismus correction. Current Medications: Active Medications Generic Name Dose Route Start Last Admin Trade Name Freq PRN Reason Stop Dose Admin Acamprosate 666 mg 12/22/16 14:00 12/31/16 06:24 Campral - PO 666 mg TID RAINER Administration Acetaminophen 650 mg 12/21/16 15:26 Tylenol - PO Q4H PRN FEVER OR PAIN Al Hydroxide/Mg Hydroxide 30 ml 12/21/16 15:26 Mylanta Oral Suspension - PO Q6H PRN DYSPEPSIA Albuterol Sulfate 1 amp 12/27/16 06:25 Ventolin 0.083% Nebulizer Soln - NEB Q4H PRN SHORT OF BREATH/WHEEZING Albuterol Sulfate 2 puff 12/28/16 21:25 12/31/16 09:36 Ventolin Hfa Inhaler - IH 2 puff Q4H PRN Administration SHORT OF BREATH/WHEEZING Atazanavir 300 mg 12/22/16 10:00 12/31/16 09:36 Reyataz - PO 300 mg DAILY RAINER Administration Cyclobenzaprine HCl 10 mg 12/23/16 09:39 12/25/16 14:21 Flexeril - PO 10 mg TID PRN Administration MUSCLE SPASMS Diphenhydramine HCl 50 mg 12/21/16 15:26 12/31/16 00:45 Benadryl - PO 50 mg HSMR1 PRN Administration FOR ITCHING Emtricitabine/Tenofovir 1 tab 12/22/16 10:00 12/31/16 09:36 Truvada PO 1 tab DAILY RAINER Administration Eucalyptus/Menthol/Phenol/Sorbitol 1 each 12/21/16 15:26 Cepastat Lozenge - MM Q4H PRN SORE THROAT Gabapentin 600 mg 12/21/16 22:00 12/31/16 06:24 Neurontin - PO 600 mg TID RAINER Administration Guaifenesin 10 ml 12/21/16 15:26 Robitussin Dm - PO Q6H PRN COUGH Hydroxyzine Pamoate 50 mg 12/21/16 15:26 12/26/16 03:00 Vistaril - PO 50 mg Q4H PRN Administration AGITATION Ibuprofen 800 mg 12/21/16 16:00 12/31/16 09:37 Motrin - PO 800 mg Q8H PRN Administration PAIN Ibuprofen 600 mg 12/23/16 09:38 12/25/16 21:18 Motrin - PO 600 mg Q6H PRN Administration PAIN Loperamide HCl 4 mg 12/21/16 15:26 12/25/16 14:21 Imodium - PO 4 mg Q6H PRN Administration DIARRHEA Magnesium Hydroxide 30 ml 12/21/16 15:26 Milk Of Magnesia - PO DAILY PRN CONSTIPATION Nicotine 21 mg 12/22/16 10:00 12/31/16 09:36 Nicoderm Patch - TD 21 mg DAILY RAINER Administration Multivit/Folic Acid/Iron 1 tab 12/22/16 10:00 12/31/16 09:36 Vitamins (Sjr) - PO 1 tab DAILY RAINER Administration Pseudoephedrine/Triprolidine 1 combo 12/21/16 15:26 Actifed - PO TID PRN NASAL CONGESTION Quetiapine Fumarate 25 mg 12/31/16 22:00 Seroquel - PO HS RAINER Ritonavir 100 mg 12/22/16 10:00 12/31/16 09:36 Norvir - PO 100 mg DAILY RAINER Administration Sertraline HCl 100 mg 12/25/16 10:00 12/31/16 09:36 Zoloft - PO 100 mg DAILY RAINER Administration Thiamine HCl 100 mg 12/21/16 22:00 12/30/16 21:06 Vitamin B1 - PO 100 mg HS RAINER Administration Medication(s) Change(s): d/c Sinequan, add Seroquel 25 mg po hs. Current Side Effect: No Lab tests ordered: No Lab tests reviewed: Yes Provider note:: Patient was seen today, he reports he is unable to sleep, thoughts about his "she is unfaithfull and cheating on me". Reports at night he has a lot of ruminating thoughts, states he is not sure if it his thoughts or voices, stated he talks to himself, reports he feels sad and upset "but I am going to move with my life". Supportive therapy provided, ways to reduce stress discussed. Discussed treatment plan, patient agreed. Will continue to monitor progress. Total face to face time:: 45 Mental Status Exam - Mental Status Exam Alert and Oriented to: Time, Place, Person Cognitive Function: Grossly Intact Patient Appearance: Well Groomed Mood: Depressed, Sad Affect: Appropriate, Mood Congruent Patient Behavior: Appropriate, Cooperative Speech Pattern: Clear, Appropriate Voice Loudness: Normal Thought Process: Intact, Goal Oriented Thought Disorder: Not Present Hallucinations: Denies (but unclear if he hears voices or his thoughts) Suicidal Ideation: Denies Homicidal Ideation: Denies Insight/Judgement: Fair Sleep: Poorly, Difficulty falling asleep Appetite: Fair Muscle strength/Tone: Normal Gait/Station: Normal Psychiatric Treatment Plan - Problem List (1) EtOH dependence Current Visit: No (2) MDD (major depressive disorder) Current Visit: No Qualifiers: (3) Nicotine dependence Current Visit: No Qualifiers:
[2016-12-31] MEDS: hydrOXYzine PAMOATE 50 MG CAPSULE (FP) PO PRN (17:41)
[2016-12-31] MEDS: THIAMINE HCL 100 MG TABLET (FP) PO SCH (21:12)
[2016-12-31] MEDS ORDERED: QUEtiapine FUMARATE 25 MG TABLET (FP) PO SCH (22:00)
[2017-01-01] MEDS: diphenhydrAMINE HCL 50 MG CAPSULE PO PRN ×2 (01:10→21:12)
[2017-01-01] MEDS: ACAMPROSATE CALCIUM 333 MG TABLET.DR PO SCH ×3 (06:19→21:12)
[2017-01-01] MEDS: GABAPENTIN 300 MG CAPSULE (FP) PO SCH ×3 (06:20→21:13)
[2017-01-01] MEDS ORDERED: PT OWN MED DRAWER 7, Y5N ONE (08:27)
--- NOTE | 2017-01-01 09:29 | PN ---
Psychiatric Progress Note Vital Signs: Vital Signs Period Temp Pulse Resp BP Sys/Bolivar Pulse Ox Last 24 Hr 18-18 Date of Session: 01/01/17 Chief Complaint:: "insomnia" HPI: Patient is addressing alcohol, nicotine dependence comorbid MDD. ROS: WNL Current Medications: Active Medications Generic Name Dose Route Start Last Admin Trade Name Freq PRN Reason Stop Dose Admin Acamprosate 666 mg 12/22/16 14:00 01/01/17 06:19 Campral - PO 666 mg TID RAINER Administration Acetaminophen 650 mg 12/21/16 15:26 Tylenol - PO Q4H PRN FEVER OR PAIN Al Hydroxide/Mg Hydroxide 30 ml 12/21/16 15:26 Mylanta Oral Suspension - PO Q6H PRN DYSPEPSIA Albuterol Sulfate 2 puff 12/28/16 21:25 12/31/16 21:14 Ventolin Hfa Inhaler - IH 2 puff Q4H PRN Administration SHORT OF BREATH/WHEEZING Atazanavir 300 mg 12/22/16 10:00 12/31/16 09:36 Reyataz - PO 300 mg DAILY RAINER Administration Cyclobenzaprine HCl 10 mg 12/23/16 09:39 12/25/16 14:21 Flexeril - PO 10 mg TID PRN Administration MUSCLE SPASMS Diphenhydramine HCl 50 mg 12/21/16 15:26 01/01/17 01:10 Benadryl - PO 50 mg HSMR1 PRN Administration FOR ITCHING Emtricitabine/Tenofovir 1 tab 12/22/16 10:00 12/31/16 09:36 Truvada PO 1 tab DAILY RAINER Administration Eucalyptus/Menthol/Phenol/Sorbitol 1 each 12/21/16 15:26 Cepastat Lozenge - MM Q4H PRN SORE THROAT Gabapentin 600 mg 12/21/16 22:00 01/01/17 06:20 Neurontin - PO 600 mg TID RAINER Administration Guaifenesin 10 ml 12/21/16 15:26 Robitussin Dm - PO Q6H PRN COUGH Hydroxyzine Pamoate 50 mg 12/21/16 15:26 12/31/16 17:41 Vistaril - PO 50 mg Q4H PRN Administration AGITATION Ibuprofen 800 mg 12/21/16 16:00 12/31/16 09:37 Motrin - PO 800 mg Q8H PRN Administration PAIN Ibuprofen 600 mg 12/23/16 09:38 12/25/16 21:18 Motrin - PO 600 mg Q6H PRN Administration PAIN Loperamide HCl 4 mg 12/21/16 15:26 12/25/16 14:21 Imodium - PO 4 mg Q6H PRN Administration DIARRHEA Magnesium Hydroxide 30 ml 12/21/16 15:26 Milk Of Magnesia - PO DAILY PRN CONSTIPATION Nicotine 21 mg 12/22/16 10:00 12/31/16 09:36 Nicoderm Patch - TD 21 mg DAILY RAINER Administration Multivit/Folic Acid/Iron 1 tab 12/22/16 10:00 12/31/16 09:36 Vitamins (Sjr) - PO 1 tab DAILY RAINER Administration Pseudoephedrine/Triprolidine 1 combo 12/21/16 15:26 Actifed - PO TID PRN NASAL CONGESTION Quetiapine Fumarate 25 mg 12/31/16 22:00 12/31/16 21:13 Seroquel - PO 25 mg HS RAINER Administration Ritonavir 100 mg 12/22/16 10:00 12/31/16 09:36 Norvir - PO 100 mg DAILY RAINER Administration Sertraline HCl 100 mg 12/25/16 10:00 12/31/16 09:36 Zoloft - PO 100 mg DAILY RAINER Administration Thiamine HCl 100 mg 12/21/16 22:00 12/31/16 21:12 Vitamin B1 - PO 100 mg HS RAINER Administration Current Side Effect: No Lab tests ordered: No Lab tests reviewed: Yes Provider note:: Patient was seen today, reported he was able to sleep only 3 hours from 9pm to 12 am and since then was up all night, he states he is angry and irritable this morning. Reviewed medications with the patient discusssed indications, propreties and side-efefcts of Belsomra, patient agreed to start, will increase Seroquel 50 mg .Emotinal support provided, theurapetic efforts also included a sleep hygiene and stress reduction techniques, will continue to monitor progress. Total face to face time:: 45 Mental Status Exam - Mental Status Exam Alert and Oriented to: Time, Place, Person Cognitive Function: Good Patient Appearance: Well Groomed Mood: Angry, Irritable Affect: Appropriate, Mood Congruent Patient Behavior: Appropriate, Cooperative Speech Pattern: Clear, Appropriate Voice Loudness: Normal Thought Process: Intact, Goal Oriented Thought Disorder: Not Present Hallucinations: Denies Suicidal Ideation: Denies Homicidal Ideation: Denies Insight/Judgement: Fair Sleep: Poorly, Difficulty falling asleep Appetite: Fair Muscle strength/Tone: Normal Gait/Station: Normal Psychiatric Treatment Plan - Problem List (1) EtOH dependence Current Visit: No (2) MDD (major depressive disorder) Current Visit: No Qualifiers: (3) Nicotine dependence Current Visit: No Qualifiers:
[2017-01-01] MEDS: NICOTINE 21 MG/24 HOURS TOPICAL PATCH TD SCH (09:54)
[2017-01-01] MEDS: PRENATAL VITAMINS W/ FOLIC ACID TABLET (FP) PO SCH (09:55)
[2017-01-01] MEDS: ATAZANAVIR SO4 300 MG CAPSULE PO SCH (09:55)
[2017-01-01] MEDS: SERTRALINE HCL 50 MG TABLET (FP) PO SCH (09:55)
[2017-01-01] MEDS: RITONAVIR 100 MG TABLET PO SCH (09:56)
[2017-01-01] MEDS: EMTRICITABINE 200MG/TENOFOVIR 300MG PO SCH (09:56)
[2017-01-01] MEDS: SUVOREXANT 10 MG TABLET PO SCH (21:12)
[2017-01-01] MEDS: THIAMINE HCL 100 MG TABLET (FP) PO SCH (21:12)
[2017-01-01] MEDS: QUEtiapine FUMARATE 50 MG TABLET PO SCH (21:12)
[2017-01-02] MEDS: hydrOXYzine PAMOATE 50 MG CAPSULE (FP) PO PRN (02:32)
[2017-01-02] MEDS: ACAMPROSATE CALCIUM 333 MG TABLET.DR PO SCH ×3 (06:44→21:19)
[2017-01-02] MEDS: GABAPENTIN 300 MG CAPSULE (FP) PO SCH ×3 (06:44→21:19)
[2017-01-02] MEDS: IBUPROFEN 400 MG TABLET (FP) PO PRN (06:45)
[2017-01-02] MEDS: ALBUTEROL SO4 6.7 GM HFA INHALER IH PRN (06:45)
--- NOTE | 2017-01-02 07:50 | PN ---
[facility] Progress Note Note: tinactin cream cream apply to left index bid AND BOTH FEET
[2017-01-02] MEDS: NICOTINE 21 MG/24 HOURS TOPICAL PATCH TD SCH (10:38)
[2017-01-02] MEDS: ATAZANAVIR SO4 300 MG CAPSULE PO SCH (10:38)
[2017-01-02] MEDS: EMTRICITABINE 200MG/TENOFOVIR 300MG PO SCH (10:38)
[2017-01-02] MEDS: PRENATAL VITAMINS W/ FOLIC ACID TABLET (FP) PO SCH (10:38)
[2017-01-02] MEDS: SERTRALINE HCL 50 MG TABLET (FP) PO SCH (10:38)
[2017-01-02] MEDS: RITONAVIR 100 MG TABLET PO SCH (10:38)
[2017-01-02] MEDS: TOLNAFTATE 1% CREAM 15 GM TUBE TP SCH ×2 (10:41→21:23)
[2017-01-02] MEDS: ARTIFICIAL TEARS (POLYVINYL ALCOHOL 1.4%) OPTH DROPS OU SCH (14:13)
[2017-01-02] MEDS: CYCLOBENZAPRINE HCL 10 MG TABLET (FP) PO PRN (19:17)
[2017-01-02] MEDS: QUEtiapine FUMARATE 50 MG TABLET PO SCH (21:19)
[2017-01-02] MEDS: THIAMINE HCL 100 MG TABLET (FP) PO SCH (21:20)
[2017-01-02] MEDS: diphenhydrAMINE HCL 50 MG CAPSULE PO PRN (21:21)
[2017-01-03] MEDS: ARTIFICIAL TEARS (POLYVINYL ALCOHOL 1.4%) OPTH DROPS OU SCH ×4 (00:03→21:05)
[2017-01-03] MEDS: SUVOREXANT 10 MG TABLET PO SCH ×2 (00:05→21:06)
[2017-01-03] MEDS: hydrOXYzine PAMOATE 50 MG CAPSULE (FP) PO PRN (02:56)
[2017-01-03] MEDS: IBUPROFEN 400 MG TABLET (FP) PO PRN (06:12)
[2017-01-03] MEDS: ACAMPROSATE CALCIUM 333 MG TABLET.DR PO SCH ×3 (06:14→21:05)
[2017-01-03] MEDS: GABAPENTIN 300 MG CAPSULE (FP) PO SCH ×3 (06:14→21:05)
[2017-01-03] MEDS: ALBUTEROL SO4 6.7 GM HFA INHALER IH PRN (06:19)
[2017-01-03] MEDS: PRENATAL VITAMINS W/ FOLIC ACID TABLET (FP) PO SCH (10:16)
[2017-01-03] MEDS: ATAZANAVIR SO4 300 MG CAPSULE PO SCH (10:16)
[2017-01-03] MEDS: SERTRALINE HCL 50 MG TABLET (FP) PO SCH (10:16)
[2017-01-03] MEDS: TOLNAFTATE 1% CREAM 15 GM TUBE TP SCH ×2 (10:18→21:05)
[2017-01-03] MEDS: RITONAVIR 100 MG TABLET PO SCH (10:18)
[2017-01-03] MEDS: EMTRICITABINE 200MG/TENOFOVIR 300MG PO SCH (10:19)
[2017-01-03] MEDS: NICOTINE 21 MG/24 HOURS TOPICAL PATCH TD SCH (10:20)
[2017-01-03] MEDS: THIAMINE HCL 100 MG TABLET (FP) PO SCH (21:05)
[2017-01-03] MEDS: QUEtiapine FUMARATE 50 MG TABLET PO SCH (21:05)
[2017-01-03] MEDS: CYCLOBENZAPRINE HCL 10 MG TABLET (FP) PO PRN (21:05)
[2017-01-03] MEDS: diphenhydrAMINE HCL 50 MG CAPSULE PO PRN (21:07)
[2017-01-04] MEDS: GABAPENTIN 300 MG CAPSULE (FP) PO SCH ×3 (06:55→21:03)
[2017-01-04] MEDS: ARTIFICIAL TEARS (POLYVINYL ALCOHOL 1.4%) OPTH DROPS OU SCH ×3 (06:56→21:04)
[2017-01-04] MEDS: ACAMPROSATE CALCIUM 333 MG TABLET.DR PO SCH ×3 (06:56→21:03)
[2017-01-04] MEDS: SERTRALINE HCL 50 MG TABLET (FP) PO SCH (09:46)
[2017-01-04] MEDS: EMTRICITABINE 200MG/TENOFOVIR 300MG PO SCH (09:46)
[2017-01-04] MEDS: ATAZANAVIR SO4 300 MG CAPSULE PO SCH (09:46)
[2017-01-04] MEDS: PRENATAL VITAMINS W/ FOLIC ACID TABLET (FP) PO SCH (09:46)
[2017-01-04] MEDS: TOLNAFTATE 1% CREAM 15 GM TUBE TP SCH ×2 (09:47→21:04)
[2017-01-04] MEDS: RITONAVIR 100 MG TABLET PO SCH (09:47)
[2017-01-04] MEDS: NICOTINE 21 MG/24 HOURS TOPICAL PATCH TD SCH (09:47)
[2017-01-04] MEDS: CYCLOBENZAPRINE HCL 10 MG TABLET (FP) PO PRN (21:03)
[2017-01-04] MEDS: THIAMINE HCL 100 MG TABLET (FP) PO SCH (21:03)
[2017-01-04] MEDS: diphenhydrAMINE HCL 50 MG CAPSULE PO PRN (21:03)
[2017-01-04] MEDS: QUEtiapine FUMARATE 50 MG TABLET PO SCH (21:03)
[2017-01-04] MEDS: SUVOREXANT 10 MG TABLET PO SCH (21:04)
[2017-01-05] MEDS: diphenhydrAMINE HCL 50 MG CAPSULE PO PRN ×2 (01:04→21:37)
[2017-01-05] MEDS: hydrOXYzine PAMOATE 50 MG CAPSULE (FP) PO PRN (02:37)
[2017-01-05] MEDS: ACAMPROSATE CALCIUM 333 MG TABLET.DR PO SCH ×3 (06:50→21:34)
[2017-01-05] MEDS: IBUPROFEN 400 MG TABLET (FP) PO PRN (06:50)
[2017-01-05] MEDS: GABAPENTIN 300 MG CAPSULE (FP) PO SCH ×3 (06:50→21:35)
[2017-01-05] MEDS: ARTIFICIAL TEARS (POLYVINYL ALCOHOL 1.4%) OPTH DROPS OU SCH ×3 (06:51→21:34)
--- NOTE | 2017-01-05 08:51 | PN ---
Psychiatric Progress Note Vital Signs: Vital Signs Period Temp Pulse Resp BP Sys/Bolivar Pulse Ox Last 24 Hr 98.0 F 85 18-18 116/78 Date of Session: 01/05/17 Chief Complaint:: insomnia HPI: Patient reports difficultis to fall asleep from time to time, reports mild depressive symptoms, denies suicidal ideations Current Medications: Active Medications Generic Name Dose Route Start Last Admin Trade Name Freq PRN Reason Stop Dose Admin Acamprosate 666 mg 12/22/16 14:00 01/05/17 06:50 Campral - PO 666 mg TID RAINER Administration Acetaminophen 650 mg 12/21/16 15:26 Tylenol - PO Q4H PRN FEVER OR PAIN Al Hydroxide/Mg Hydroxide 30 ml 12/21/16 15:26 Mylanta Oral Suspension - PO Q6H PRN DYSPEPSIA Albuterol Sulfate 2 puff 12/28/16 21:25 01/03/17 06:19 Ventolin Hfa Inhaler - IH 2 puff Q4H PRN Administration SHORT OF BREATH/WHEEZING Artificial Tears 1 drop 01/02/17 14:00 01/05/17 06:51 Artificial Tears OU 1 drop TID RAINER Administration Atazanavir 300 mg 12/22/16 10:00 01/04/17 09:46 Reyataz - PO 300 mg DAILY RAINER Administration Cyclobenzaprine HCl 10 mg 12/23/16 09:39 01/04/17 21:03 Flexeril - PO 10 mg TID PRN Administration MUSCLE SPASMS Diphenhydramine HCl 50 mg 12/21/16 15:26 01/05/17 01:04 Benadryl - PO 50 mg HSMR1 PRN Administration FOR ITCHING Emtricitabine/Tenofovir 1 tab 12/22/16 10:00 01/04/17 09:46 Truvada PO 1 tab DAILY RAINER Administration Eucalyptus/Menthol/Phenol/Sorbitol 1 each 12/21/16 15:26 Cepastat Lozenge - MM Q4H PRN SORE THROAT Gabapentin 600 mg 12/21/16 22:00 01/05/17 06:50 Neurontin - PO 600 mg TID RAINER Administration Guaifenesin 10 ml 12/21/16 15:26 Robitussin Dm - PO Q6H PRN COUGH Hydroxyzine Pamoate 50 mg 12/21/16 15:26 01/05/17 02:37 Vistaril - PO 50 mg Q4H PRN Administration AGITATION Ibuprofen 800 mg 12/21/16 16:00 01/05/17 06:50 Motrin - PO 800 mg Q8H PRN Administration PAIN Ibuprofen 600 mg 12/23/16 09:38 12/25/16 21:18 Motrin - PO 600 mg Q6H PRN Administration PAIN Loperamide HCl 4 mg 12/21/16 15:26 12/25/16 14:21 Imodium - PO 4 mg Q6H PRN Administration DIARRHEA Magnesium Hydroxide 30 ml 12/21/16 15:26 Milk Of Magnesia - PO DAILY PRN CONSTIPATION Nicotine 21 mg 12/22/16 10:00 01/04/17 09:47 Nicoderm Patch - TD 21 mg DAILY RAINER Administration Multivit/Folic Acid/Iron 1 tab 12/22/16 10:00 01/04/17 09:46 Vitamins (Sjr) - PO 1 tab DAILY RAINER Administration Pseudoephedrine/Triprolidine 1 combo 12/21/16 15:26 Actifed - PO TID PRN NASAL CONGESTION Quetiapine Fumarate 50 mg 01/01/17 22:00 01/04/17 21:03 Seroquel - PO 50 mg HS RAINER Administration Ritonavir 100 mg 12/22/16 10:00 01/04/17 09:47 Norvir - PO 100 mg DAILY RAINER Administration Sertraline HCl 100 mg 12/25/16 10:00 01/04/17 09:46 Zoloft - PO 100 mg DAILY RAINER Administration Thiamine HCl 100 mg 12/21/16 22:00 01/04/17 21:03 Vitamin B1 - PO 100 mg HS RAINER Administration Tolnaftate 1 applic 01/02/17 10:00 01/04/17 21:04 Tinactin 1% Cream - TP 1 applic BID RAINER Administration Medication(s) Change(s): Benadryl 50mg po prn qhs for insomnia Provider note:: Patoent engaged in supportive psychotherapy, alcohol abuse issues discussed as well as [id number] compliance Mental Status Exam - Mental Status Exam Alert and Oriented to: Time, Place, Person Cognitive Function: Fair Patient Appearance: Unkempt Mood: Euthymic Affect: Mood Congruent Patient Behavior: Cooperative Speech Pattern: Appropriate Voice Loudness: Normal Thought Process: Goal Oriented Thought Disorder: Being Controlled Hallucinations: Denies Suicidal Ideation: Denies Homicidal Ideation: Denies Insight/Judgement: Fair Sleep: Difficulty falling asleep Appetite: Weight gain Muscle strength/Tone: Mild Hypotonicity Gait/Station: Deferred Additional Comments: Observation. Continue current treatment plan Psychiatric Treatment Plan - Problem List (1) Alcohol dependence with uncomplicated withdrawal Current Visit: No (2) EtOH dependence Current Visit: No (3) Insomnia Current Visit: No Qualifiers: Insomnia type: unspecified Qualified Code(s): G47.00 - Insomnia, unspecified (4) MDD (major depressive disorder) Current Visit: No Qualifiers: (5) Nicotine dependence Current Visit: No Qualifiers: Initial treatment plan: Observation. Continue current tratment plan
[2017-01-05] MEDS: NICOTINE 21 MG/24 HOURS TOPICAL PATCH TD SCH (09:16)
[2017-01-05] MEDS: PRENATAL VITAMINS W/ FOLIC ACID TABLET (FP) PO SCH (09:17)
[2017-01-05] MEDS: ATAZANAVIR SO4 300 MG CAPSULE PO SCH (09:17)
[2017-01-05] MEDS: EMTRICITABINE 200MG/TENOFOVIR 300MG PO SCH (09:17)
[2017-01-05] MEDS: SERTRALINE HCL 50 MG TABLET (FP) PO SCH (09:17)
[2017-01-05] MEDS: RITONAVIR 100 MG TABLET PO SCH (09:18)
[2017-01-05] MEDS: TOLNAFTATE 1% CREAM 15 GM TUBE TP SCH ×2 (09:19→21:47)
[2017-01-05] MEDS: QUEtiapine FUMARATE 50 MG TABLET PO SCH (21:34)
[2017-01-05] MEDS: THIAMINE HCL 100 MG TABLET (FP) PO SCH (21:35)
[2017-01-05] MEDS: ALBUTEROL SO4 6.7 GM HFA INHALER IH PRN (21:46)
[2017-01-05] MEDS: SUVOREXANT 10 MG TABLET PO SCH (21:47)
[2017-01-06] MEDS: hydrOXYzine PAMOATE 50 MG CAPSULE (FP) PO PRN (04:04)
[2017-01-06] MEDS: ACAMPROSATE CALCIUM 333 MG TABLET.DR PO SCH ×3 (07:03→21:16)
[2017-01-06] MEDS: GABAPENTIN 300 MG CAPSULE (FP) PO SCH ×3 (07:03→21:16)
[2017-01-06] MEDS: IBUPROFEN 400 MG TABLET (FP) PO PRN (07:04)
[2017-01-06] MEDS: ALBUTEROL SO4 6.7 GM HFA INHALER IH PRN ×2 (07:08→21:15)
[2017-01-06] MEDS: ARTIFICIAL TEARS (POLYVINYL ALCOHOL 1.4%) OPTH DROPS OU SCH ×3 (07:23→21:16)
[2017-01-06] MEDS: RITONAVIR 100 MG TABLET PO SCH (09:57)
[2017-01-06] MEDS: EMTRICITABINE 200MG/TENOFOVIR 300MG PO SCH (09:57)
[2017-01-06] MEDS: PRENATAL VITAMINS W/ FOLIC ACID TABLET (FP) PO SCH (09:57)
[2017-01-06] MEDS: ATAZANAVIR SO4 300 MG CAPSULE PO SCH (09:57)
[2017-01-06] MEDS: SERTRALINE HCL 50 MG TABLET (FP) PO SCH (09:57)
[2017-01-06] MEDS: NICOTINE 21 MG/24 HOURS TOPICAL PATCH TD SCH (09:58)
[2017-01-06] MEDS: TOLNAFTATE 1% CREAM 15 GM TUBE TP SCH ×2 (09:58→21:18)
[2017-01-06] MEDS: QUEtiapine FUMARATE 50 MG TABLET PO SCH (21:16)
[2017-01-06] MEDS: THIAMINE HCL 100 MG TABLET (FP) PO SCH (21:16)
[2017-01-06] MEDS: SUVOREXANT 10 MG TABLET PO SCH (21:17)
[2017-01-06] MEDS: diphenhydrAMINE HCL 50 MG CAPSULE PO PRN (21:17)
[2017-01-07] MEDS: diphenhydrAMINE HCL 50 MG CAPSULE PO PRN ×2 (01:35→21:07)
[2017-01-07] MEDS: ACAMPROSATE CALCIUM 333 MG TABLET.DR PO SCH ×3 (06:04→21:07)
[2017-01-07] MEDS: GABAPENTIN 300 MG CAPSULE (FP) PO SCH ×3 (06:04→21:07)
[2017-01-07] MEDS: IBUPROFEN 400 MG TABLET (FP) PO PRN (06:06)
[2017-01-07] MEDS: ARTIFICIAL TEARS (POLYVINYL ALCOHOL 1.4%) OPTH DROPS OU SCH ×3 (06:08→21:06)
[2017-01-07] MEDS: PRENATAL VITAMINS W/ FOLIC ACID TABLET (FP) PO SCH (09:41)
[2017-01-07] MEDS: ATAZANAVIR SO4 300 MG CAPSULE PO SCH (09:41)
[2017-01-07] MEDS: EMTRICITABINE 200MG/TENOFOVIR 300MG PO SCH (09:41)
[2017-01-07] MEDS: NICOTINE 21 MG/24 HOURS TOPICAL PATCH TD SCH (09:41)
[2017-01-07] MEDS: TOLNAFTATE 1% CREAM 15 GM TUBE TP SCH ×2 (09:41→21:07)
[2017-01-07] MEDS: RITONAVIR 100 MG TABLET PO SCH (09:41)
[2017-01-07] MEDS: SERTRALINE HCL 50 MG TABLET (FP) PO SCH (09:42)
[2017-01-07] MEDS: THIAMINE HCL 100 MG TABLET (FP) PO SCH (21:06)
[2017-01-07] MEDS: SUVOREXANT 10 MG TABLET PO SCH (21:06)
[2017-01-07] MEDS: QUEtiapine FUMARATE 50 MG TABLET PO SCH (21:06)
[2017-01-08] MEDS: diphenhydrAMINE HCL 50 MG CAPSULE PO PRN ×2 (00:57→21:09)
[2017-01-08] MEDS: ACAMPROSATE CALCIUM 333 MG TABLET.DR PO SCH ×3 (06:24→21:09)
[2017-01-08] MEDS: IBUPROFEN 400 MG TABLET (FP) PO PRN (06:25)
[2017-01-08] MEDS: GABAPENTIN 300 MG CAPSULE (FP) PO SCH ×3 (06:25→21:09)
[2017-01-08] MEDS: ARTIFICIAL TEARS (POLYVINYL ALCOHOL 1.4%) OPTH DROPS OU SCH ×3 (06:26→21:14)
[2017-01-08] MEDS: TOLNAFTATE 1% CREAM 15 GM TUBE TP SCH ×2 (09:42→21:14)
[2017-01-08] MEDS: SERTRALINE HCL 50 MG TABLET (FP) PO SCH (09:43)
[2017-01-08] MEDS: PRENATAL VITAMINS W/ FOLIC ACID TABLET (FP) PO SCH (09:43)
[2017-01-08] MEDS: RITONAVIR 100 MG TABLET PO SCH (09:43)
[2017-01-08] MEDS: ATAZANAVIR SO4 300 MG CAPSULE PO SCH (09:43)
[2017-01-08] MEDS: EMTRICITABINE 200MG/TENOFOVIR 300MG PO SCH (09:44)
[2017-01-08] MEDS: NICOTINE 21 MG/24 HOURS TOPICAL PATCH TD SCH (09:44)
[2017-01-08] MEDS: ALBUTEROL SO4 6.7 GM HFA INHALER IH PRN (09:45)
--- NOTE | 2017-01-08 14:20 | PN ---
Psychiatric Progress Note Vital Signs: Vital Signs Period Temp Pulse Resp BP Sys/Bolivar Pulse Ox Last 24 Hr 98.5 F 78 18-18 144/91 Date of Session: 01/08/17 Chief Complaint:: "racing thoughts" HPI: Patient is addressing alcohol, nicotine dependence comorbid MDD. ROS: WNL Current Medications: Active Medications Generic Name Dose Route Start Last Admin Trade Name Freq PRN Reason Stop Dose Admin Acamprosate 666 mg 12/22/16 14:00 01/08/17 14:00 Campral - PO 666 mg TID RAINER Administration Acetaminophen 650 mg 12/21/16 15:26 Tylenol - PO Q4H PRN FEVER OR PAIN Al Hydroxide/Mg Hydroxide 30 ml 12/21/16 15:26 Mylanta Oral Suspension - PO Q6H PRN DYSPEPSIA Albuterol Sulfate 2 puff 12/28/16 21:25 01/08/17 09:45 Ventolin Hfa Inhaler - IH 2 puff Q4H PRN Administration SHORT OF BREATH/WHEEZING Artificial Tears 1 drop 01/02/17 14:00 01/08/17 14:03 Artificial Tears OU 1 drop TID RAINER Administration Atazanavir 300 mg 12/22/16 10:00 01/08/17 09:43 Reyataz - PO 300 mg DAILY RAINER Administration Cyclobenzaprine HCl 10 mg 12/23/16 09:39 01/04/17 21:03 Flexeril - PO 10 mg TID PRN Administration MUSCLE SPASMS Diphenhydramine HCl 50 mg 12/21/16 15:26 01/08/17 00:57 Benadryl - PO 50 mg HSMR1 PRN Administration FOR ITCHING Emtricitabine/Tenofovir 1 tab 12/22/16 10:00 01/08/17 09:44 Truvada PO 1 tab DAILY RAINER Administration Eucalyptus/Menthol/Phenol/Sorbitol 1 each 12/21/16 15:26 Cepastat Lozenge - MM Q4H PRN SORE THROAT Gabapentin 600 mg 12/21/16 22:00 01/08/17 14:00 Neurontin - PO 600 mg TID RAINER Administration Guaifenesin 10 ml 12/21/16 15:26 Robitussin Dm - PO Q6H PRN COUGH Hydroxyzine Pamoate 50 mg 12/21/16 15:26 01/06/17 04:04 Vistaril - PO 50 mg Q4H PRN Administration AGITATION Ibuprofen 800 mg 12/21/16 16:00 01/08/17 06:25 Motrin - PO 800 mg Q8H PRN Administration PAIN Ibuprofen 600 mg 12/23/16 09:38 12/25/16 21:18 Motrin - PO 600 mg Q6H PRN Administration PAIN Loperamide HCl 4 mg 12/21/16 15:26 12/25/16 14:21 Imodium - PO 4 mg Q6H PRN Administration DIARRHEA Magnesium Hydroxide 30 ml 12/21/16 15:26 Milk Of Magnesia - PO DAILY PRN CONSTIPATION Nicotine 21 mg 12/22/16 10:00 01/08/17 09:44 Nicoderm Patch - TD Not Given DAILY RAINER Multivit/Folic Acid/Iron 1 tab 12/22/16 10:00 01/08/17 09:43 Vitamins (Sjr) - PO 1 tab DAILY RAINER Administration Pseudoephedrine/Triprolidine 1 combo 12/21/16 15:26 Actifed - PO TID PRN NASAL CONGESTION Quetiapine Fumarate 100 mg 01/08/17 14:03 Seroquel - PO HS RAINER Ritonavir 100 mg 12/22/16 10:00 01/08/17 09:43 Norvir - PO 100 mg DAILY RAINER Administration Sertraline HCl 100 mg 12/25/16 10:00 01/08/17 09:43 Zoloft - PO 100 mg DAILY RAINER Administration Thiamine HCl 100 mg 12/21/16 22:00 01/07/17 21:06 Vitamin B1 - PO 100 mg HS RAINER Administration Tolnaftate 1 applic 01/02/17 10:00 01/08/17 09:42 Tinactin 1% Cream - TP 1 applic BID RAINER Administration Current Side Effect: No Lab tests ordered: No Lab tests reviewed: Yes Provider note:: Patient was seen today, he continues to c/o insomnia, poor interrupted sleep, racing thoughts keeping him up, increased anxiety. Patient spoke about his medical and personal issues, feelings of anxiety predominated in this session. Patient reports that Campral has been effective and he has no urges to drink. Reviewed all current medications with the patient, recommended to ask PRN Vistaril for anxiety, will r/n Belsomra, increase Seroquel 100 mg po hs, continue to monitor progress as needed. Total face to face time:: 35 Mental Status Exam - Mental Status Exam Alert and Oriented to: Time, Place, Person Cognitive Function: Grossly Intact Patient Appearance: Well Groomed Mood: Sad, Anxious Affect: Appropriate, Mood Congruent Patient Behavior: Appropriate, Cooperative Speech Pattern: Appropriate Voice Loudness: Normal Thought Process: Goal Oriented Thought Disorder: Not Present Hallucinations: Denies Suicidal Ideation: Denies Homicidal Ideation: Denies Insight/Judgement: Fair Sleep: Difficulty falling asleep Appetite: Fair Muscle strength/Tone: Normal Gait/Station: Normal Psychiatric Treatment Plan - Problem List (1) EtOH dependence Current Visit: No (2) MDD (major depressive disorder) Current Visit: No Qualifiers: (3) Nicotine dependence Current Visit: No Qualifiers:
[2017-01-08] MEDS: hydrOXYzine PAMOATE 50 MG CAPSULE (FP) PO PRN ×2 (17:21→22:07)
[2017-01-08] MEDS: THIAMINE HCL 100 MG TABLET (FP) PO SCH (21:10)
[2017-01-08] MEDS: QUEtiapine FUMARATE 50 MG TABLET PO SCH (21:11)
[2017-01-09] MEDS: diphenhydrAMINE HCL 50 MG CAPSULE PO PRN ×2 (01:46→21:38)
[2017-01-09] MEDS: hydrOXYzine PAMOATE 50 MG CAPSULE (FP) PO PRN ×2 (05:02→09:53)
[2017-01-09] MEDS: ARTIFICIAL TEARS (POLYVINYL ALCOHOL 1.4%) OPTH DROPS OU SCH ×3 (06:23→21:39)
[2017-01-09] MEDS: ACAMPROSATE CALCIUM 333 MG TABLET.DR PO SCH ×3 (06:23→21:37)
[2017-01-09] MEDS: GABAPENTIN 300 MG CAPSULE (FP) PO SCH ×3 (06:23→21:37)
[2017-01-09] MEDS: PRENATAL VITAMINS W/ FOLIC ACID TABLET (FP) PO SCH (09:52)
[2017-01-09] MEDS: RITONAVIR 100 MG TABLET PO SCH (09:52)
[2017-01-09] MEDS: SERTRALINE HCL 50 MG TABLET (FP) PO SCH (09:52)
[2017-01-09] MEDS: ATAZANAVIR SO4 300 MG CAPSULE PO SCH (09:52)
[2017-01-09] MEDS: EMTRICITABINE 200MG/TENOFOVIR 300MG PO SCH (09:53)
[2017-01-09] MEDS: NICOTINE 21 MG/24 HOURS TOPICAL PATCH TD SCH (09:54)
[2017-01-09] MEDS: TOLNAFTATE 1% CREAM 15 GM TUBE TP SCH ×2 (09:54→21:39)
[2017-01-09] MEDS: CYCLOBENZAPRINE HCL 10 MG TABLET (FP) PO PRN (14:12)
[2017-01-09] MEDS: IBUPROFEN 400 MG TABLET (FP) PO PRN (14:12)
[2017-01-09] MEDS: QUEtiapine FUMARATE 50 MG TABLET PO SCH (21:37)
[2017-01-09] MEDS: THIAMINE HCL 100 MG TABLET (FP) PO SCH (21:38)
[2017-01-10] MEDS: diphenhydrAMINE HCL 50 MG CAPSULE PO PRN ×2 (02:11→21:32)
[2017-01-10] MEDS ORDERED: PT OWN MED DRAWER 7, Y5N ONE (02:47)
[2017-01-10] MEDS: ARTIFICIAL TEARS (POLYVINYL ALCOHOL 1.4%) OPTH DROPS OU SCH ×3 (06:09→21:34)
[2017-01-10] MEDS: ACAMPROSATE CALCIUM 333 MG TABLET.DR PO SCH ×3 (06:10→21:31)
[2017-01-10] MEDS: GABAPENTIN 300 MG CAPSULE (FP) PO SCH ×3 (06:11→21:31)
[2017-01-10] MEDS: ATAZANAVIR SO4 300 MG CAPSULE PO SCH (09:33)
[2017-01-10] MEDS: PRENATAL VITAMINS W/ FOLIC ACID TABLET (FP) PO SCH (09:33)
[2017-01-10] MEDS: EMTRICITABINE 200MG/TENOFOVIR 300MG PO SCH (09:34)
[2017-01-10] MEDS: RITONAVIR 100 MG TABLET PO SCH (09:34)
[2017-01-10] MEDS: SERTRALINE HCL 50 MG TABLET (FP) PO SCH (09:34)
[2017-01-10] MEDS: NICOTINE 21 MG/24 HOURS TOPICAL PATCH TD SCH (09:34)
[2017-01-10] MEDS: CYCLOBENZAPRINE HCL 10 MG TABLET (FP) PO PRN (09:35)
[2017-01-10] MEDS: hydrOXYzine PAMOATE 50 MG CAPSULE (FP) PO PRN ×3 (09:35→18:10)
[2017-01-10] MEDS: TOLNAFTATE 1% CREAM 15 GM TUBE TP SCH ×2 (09:37→21:33)
[2017-01-10] MEDS: THIAMINE HCL 100 MG TABLET (FP) PO SCH (21:32)
[2017-01-10] MEDS: QUEtiapine FUMARATE 50 MG TABLET PO SCH (21:32)
[2017-01-10] MEDS: ALBUTEROL SO4 6.7 GM HFA INHALER IH PRN (21:34)
[2017-01-11] MEDS: hydrOXYzine PAMOATE 50 MG CAPSULE (FP) PO PRN ×4 (02:09→14:10)
[2017-01-11] MEDS: ACAMPROSATE CALCIUM 333 MG TABLET.DR PO SCH ×3 (05:51→21:24)
[2017-01-11] MEDS: GABAPENTIN 300 MG CAPSULE (FP) PO SCH ×3 (05:52→21:24)
[2017-01-11] MEDS: IBUPROFEN 600 MG TABLET (FP) PO PRN (05:54)
[2017-01-11] MEDS: CYCLOBENZAPRINE HCL 10 MG TABLET (FP) PO PRN (05:55)
[2017-01-11] MEDS: ARTIFICIAL TEARS (POLYVINYL ALCOHOL 1.4%) OPTH DROPS OU SCH ×3 (06:53→21:26)
[2017-01-11] MEDS: SERTRALINE HCL 50 MG TABLET (FP) PO SCH (09:45)
[2017-01-11] MEDS: RITONAVIR 100 MG TABLET PO SCH (09:45)
[2017-01-11] MEDS: EMTRICITABINE 200MG/TENOFOVIR 300MG PO SCH (09:45)
[2017-01-11] MEDS: ATAZANAVIR SO4 300 MG CAPSULE PO SCH (09:45)
[2017-01-11] MEDS: NICOTINE 21 MG/24 HOURS TOPICAL PATCH TD SCH (09:45)
[2017-01-11] MEDS: PRENATAL VITAMINS W/ FOLIC ACID TABLET (FP) PO SCH (09:45)
[2017-01-11] MEDS: TOLNAFTATE 1% CREAM 15 GM TUBE TP SCH ×2 (09:46→21:26)
[2017-01-11] MEDS: THIAMINE HCL 100 MG TABLET (FP) PO SCH (21:24)
[2017-01-11] MEDS: QUEtiapine FUMARATE 50 MG TABLET PO SCH (21:25)
[2017-01-11] MEDS: diphenhydrAMINE HCL 50 MG CAPSULE PO PRN (21:26)
[2017-01-12] MEDS: diphenhydrAMINE HCL 50 MG CAPSULE PO PRN ×2 (01:27→21:03)
[2017-01-12] MEDS: GABAPENTIN 300 MG CAPSULE (FP) PO SCH ×3 (06:00→21:03)
[2017-01-12] MEDS: ACAMPROSATE CALCIUM 333 MG TABLET.DR PO SCH ×3 (06:00→21:03)
[2017-01-12] MEDS: ARTIFICIAL TEARS (POLYVINYL ALCOHOL 1.4%) OPTH DROPS OU SCH ×3 (06:01→21:04)
[2017-01-12] MEDS: hydrOXYzine PAMOATE 50 MG CAPSULE (FP) PO PRN ×2 (09:45→23:35)
[2017-01-12] MEDS: NICOTINE 21 MG/24 HOURS TOPICAL PATCH TD SCH (09:45)
[2017-01-12] MEDS: PRENATAL VITAMINS W/ FOLIC ACID TABLET (FP) PO SCH (09:46)
[2017-01-12] MEDS: SERTRALINE HCL 50 MG TABLET (FP) PO SCH (09:46)
[2017-01-12] MEDS: ATAZANAVIR SO4 300 MG CAPSULE PO SCH (09:46)
[2017-01-12] MEDS: TOLNAFTATE 1% CREAM 15 GM TUBE TP SCH ×2 (09:46→21:05)
[2017-01-12] MEDS: RITONAVIR 100 MG TABLET PO SCH (09:46)
[2017-01-12] MEDS: EMTRICITABINE 200MG/TENOFOVIR 300MG PO SCH (09:46)
[2017-01-12] MEDS: ALBUTEROL SO4 6.7 GM HFA INHALER IH PRN (09:47)
[2017-01-12] MEDS ORDERED: PT OWN MED DRAWER 7, Y5N ONE (09:48)
[2017-01-12] MEDS: IBUPROFEN 400 MG TABLET (FP) PO PRN (13:53)
[2017-01-12] MEDS: QUEtiapine FUMARATE 50 MG TABLET PO SCH (21:03)
[2017-01-12] MEDS: THIAMINE HCL 100 MG TABLET (FP) PO SCH (21:03)
[2017-01-13] MEDS: diphenhydrAMINE HCL 50 MG CAPSULE PO PRN ×2 (01:35→21:32)
[2017-01-13] MEDS: GABAPENTIN 300 MG CAPSULE (FP) PO SCH ×3 (06:20→21:30)
[2017-01-13] MEDS: ARTIFICIAL TEARS (POLYVINYL ALCOHOL 1.4%) OPTH DROPS OU SCH ×3 (06:20→21:33)
[2017-01-13] MEDS: ACAMPROSATE CALCIUM 333 MG TABLET.DR PO SCH ×3 (06:20→21:31)
[2017-01-13] MEDS: ALBUTEROL SO4 6.7 GM HFA INHALER IH PRN ×2 (06:23→21:33)
[2017-01-13] MEDS: hydrOXYzine PAMOATE 50 MG CAPSULE (FP) PO PRN ×3 (06:24→18:40)
[2017-01-13] MEDS: NICOTINE 21 MG/24 HOURS TOPICAL PATCH TD SCH (09:34)
[2017-01-13] MEDS: TOLNAFTATE 1% CREAM 15 GM TUBE TP SCH ×2 (09:35→21:31)
[2017-01-13] MEDS: ATAZANAVIR SO4 300 MG CAPSULE PO SCH (09:35)
[2017-01-13] MEDS: PRENATAL VITAMINS W/ FOLIC ACID TABLET (FP) PO SCH (09:35)
[2017-01-13] MEDS: EMTRICITABINE 200MG/TENOFOVIR 300MG PO SCH (09:35)
[2017-01-13] MEDS: RITONAVIR 100 MG TABLET PO SCH (09:35)
[2017-01-13] MEDS: SERTRALINE HCL 50 MG TABLET (FP) PO SCH (09:35)
[2017-01-13] MEDS: IBUPROFEN 400 MG TABLET (FP) PO PRN (09:36)
[2017-01-13] MEDS: THIAMINE HCL 100 MG TABLET (FP) PO SCH (21:30)
[2017-01-13] MEDS: QUEtiapine FUMARATE 50 MG TABLET PO SCH (21:30)
[2017-01-14] MEDS: diphenhydrAMINE HCL 50 MG CAPSULE PO PRN ×2 (01:43→21:48)
[2017-01-14] MEDS: GABAPENTIN 300 MG CAPSULE (FP) PO SCH ×3 (06:20→21:48)
[2017-01-14] MEDS: ARTIFICIAL TEARS (POLYVINYL ALCOHOL 1.4%) OPTH DROPS OU SCH ×3 (06:20→21:49)
[2017-01-14] MEDS: ACAMPROSATE CALCIUM 333 MG TABLET.DR PO SCH ×3 (06:20→21:49)
[2017-01-14] MEDS: hydrOXYzine PAMOATE 50 MG CAPSULE (FP) PO PRN ×3 (06:22→23:15)
[2017-01-14] MEDS: ALBUTEROL SO4 6.7 GM HFA INHALER IH PRN (09:46)
[2017-01-14] MEDS: RITONAVIR 100 MG TABLET PO SCH (09:47)
[2017-01-14] MEDS: NICOTINE 21 MG/24 HOURS TOPICAL PATCH TD SCH (09:47)
[2017-01-14] MEDS: EMTRICITABINE 200MG/TENOFOVIR 300MG PO SCH (09:47)
[2017-01-14] MEDS: SERTRALINE HCL 50 MG TABLET (FP) PO SCH (09:47)
[2017-01-14] MEDS: ATAZANAVIR SO4 300 MG CAPSULE PO SCH (09:47)
[2017-01-14] MEDS: PRENATAL VITAMINS W/ FOLIC ACID TABLET (FP) PO SCH (09:47)
[2017-01-14] MEDS: TOLNAFTATE 1% CREAM 15 GM TUBE TP SCH ×2 (09:48→23:21)
[2017-01-14] MEDS: IBUPROFEN 400 MG TABLET (FP) PO PRN (14:24)
[2017-01-14] MEDS: THIAMINE HCL 100 MG TABLET (FP) PO SCH (21:47)
[2017-01-14] MEDS: QUEtiapine FUMARATE 50 MG TABLET PO SCH (21:49)
[2017-01-15] MEDS: diphenhydrAMINE HCL 50 MG CAPSULE PO PRN ×2 (00:40→21:37)
[2017-01-15] MEDS: hydrOXYzine PAMOATE 50 MG CAPSULE (FP) PO PRN ×4 (03:30→23:31)
[2017-01-15] MEDS: ARTIFICIAL TEARS (POLYVINYL ALCOHOL 1.4%) OPTH DROPS OU SCH ×3 (06:12→21:37)
[2017-01-15] MEDS: GABAPENTIN 300 MG CAPSULE (FP) PO SCH ×3 (06:12→21:36)
[2017-01-15] MEDS: ACAMPROSATE CALCIUM 333 MG TABLET.DR PO SCH ×3 (06:12→21:37)
[2017-01-15] MEDS: ATAZANAVIR SO4 300 MG CAPSULE PO SCH (09:45)
[2017-01-15] MEDS: EMTRICITABINE 200MG/TENOFOVIR 300MG PO SCH (09:45)
[2017-01-15] MEDS: PRENATAL VITAMINS W/ FOLIC ACID TABLET (FP) PO SCH (09:45)
[2017-01-15] MEDS: RITONAVIR 100 MG TABLET PO SCH (09:45)
[2017-01-15] MEDS: SERTRALINE HCL 50 MG TABLET (FP) PO SCH (09:45)
[2017-01-15] MEDS: NICOTINE 21 MG/24 HOURS TOPICAL PATCH TD SCH (09:45)
[2017-01-15] MEDS: TOLNAFTATE 1% CREAM 15 GM TUBE TP SCH ×2 (09:46→21:37)
[2017-01-15] MEDS: THIAMINE HCL 100 MG TABLET (FP) PO SCH (21:36)
[2017-01-15] MEDS: QUEtiapine FUMARATE 50 MG TABLET PO SCH (21:36)
[2017-01-16] MEDS: diphenhydrAMINE HCL 50 MG CAPSULE PO PRN (01:11)
[2017-01-16] MEDS: hydrOXYzine PAMOATE 50 MG CAPSULE (FP) PO PRN ×2 (03:42→07:44)
[2017-01-16] MEDS: IBUPROFEN 400 MG TABLET (FP) PO PRN (05:55)
[2017-01-16] MEDS: GABAPENTIN 300 MG CAPSULE (FP) PO SCH (05:55)
[2017-01-16] MEDS: ACAMPROSATE CALCIUM 333 MG TABLET.DR PO SCH (05:55)
[2017-01-16] MEDS: ARTIFICIAL TEARS (POLYVINYL ALCOHOL 1.4%) OPTH DROPS OU SCH (05:55)
[2017-01-16] MEDS: CYCLOBENZAPRINE HCL 10 MG TABLET (FP) PO PRN (05:57)
[2017-01-16 06:44] VITALS: BP 118/76; PULSE 77; TEMP 97.5
[2017-01-16] MEDS: SERTRALINE HCL 50 MG TABLET (FP) PO SCH (10:02)
[2017-01-16] MEDS: ATAZANAVIR SO4 300 MG CAPSULE PO SCH (10:02)
[2017-01-16] MEDS: PRENATAL VITAMINS W/ FOLIC ACID TABLET (FP) PO SCH (10:02)
[2017-01-16] MEDS: EMTRICITABINE 200MG/TENOFOVIR 300MG PO SCH (10:03)
[2017-01-16] MEDS: NICOTINE 21 MG/24 HOURS TOPICAL PATCH TD SCH (10:03)
[2017-01-16] MEDS: TOLNAFTATE 1% CREAM 15 GM TUBE TP SCH (10:03)
[2017-01-16] MEDS: RITONAVIR 100 MG TABLET PO SCH (10:03)
--- NOTE | 2017-01-16 10:56 | PN ---
Psychiatric Progress Note Vital Signs: Vital Signs Period Temp Pulse Resp BP Sys/Bolivar Pulse Ox Last 24 Hr 97.5 F 77 18-18 118/76 Date of Session: 01/16/17 Chief Complaint:: discharge visit HPI: Patient is addressing alcohol, nicotine dependence comorbid MDD. ROS: Significant for history of Asthma, Backache, Arthritis, S/P Lithotripsy and S/ Strabismus correction, HIV + since 1989 Current Medications: Active Medications Generic Name Dose Route Start Last Admin Trade Name Freq PRN Reason Stop Dose Admin Acamprosate 666 mg 12/22/16 14:00 01/16/17 05:55 Campral - PO 666 mg TID RAINER Administration Acetaminophen 650 mg 12/21/16 15:26 Tylenol - PO Q4H PRN FEVER OR PAIN Al Hydroxide/Mg Hydroxide 30 ml 12/21/16 15:26 Mylanta Oral Suspension - PO Q6H PRN DYSPEPSIA Albuterol Sulfate 2 puff 12/28/16 21:25 01/14/17 09:46 Ventolin Hfa Inhaler - IH 2 puff Q4H PRN Administration SHORT OF BREATH/WHEEZING Artificial Tears 1 drop 01/02/17 14:00 01/16/17 05:55 Artificial Tears OU 1 drop TID RAINER Administration Atazanavir 300 mg 12/22/16 10:00 01/16/17 10:02 Reyataz - PO 300 mg DAILY RAINER Administration Cyclobenzaprine HCl 10 mg 12/23/16 09:39 01/16/17 05:57 Flexeril - PO 10 mg TID PRN Administration MUSCLE SPASMS Diphenhydramine HCl 50 mg 12/21/16 15:26 01/16/17 01:11 Benadryl - PO 50 mg HSMR1 PRN Administration FOR ITCHING Emtricitabine/Tenofovir 1 tab 12/22/16 10:00 01/16/17 10:03 Truvada PO 1 tab DAILY RAINER Administration Eucalyptus/Menthol/Phenol/Sorbitol 1 each 12/21/16 15:26 Cepastat Lozenge - MM Q4H PRN SORE THROAT Gabapentin 600 mg 12/21/16 22:00 01/16/17 05:55 Neurontin - PO 600 mg TID RAINER Administration Guaifenesin 10 ml 12/21/16 15:26 Robitussin Dm - PO Q6H PRN COUGH Hydroxyzine Pamoate 50 mg 12/21/16 15:26 01/16/17 07:44 Vistaril - PO 50 mg Q4H PRN Administration AGITATION Ibuprofen 800 mg 12/21/16 16:00 01/16/17 05:55 Motrin - PO 800 mg Q8H PRN Administration PAIN Ibuprofen 600 mg 12/23/16 09:38 01/11/17 05:54 Motrin - PO 600 mg Q6H PRN Administration PAIN Loperamide HCl 4 mg 12/21/16 15:26 12/25/16 14:21 Imodium - PO 4 mg Q6H PRN Administration DIARRHEA Magnesium Hydroxide 30 ml 12/21/16 15:26 Milk Of Magnesia - PO DAILY PRN CONSTIPATION Nicotine 21 mg 12/22/16 10:00 01/16/17 10:03 Nicoderm Patch - TD Not Given DAILY RAINER Multivit/Folic Acid/Iron 1 tab 12/22/16 10:00 01/16/17 10:02 Vitamins (Sjr) - PO 1 tab DAILY RAINER Administration Pseudoephedrine/Triprolidine 1 combo 12/21/16 15:26 Actifed - PO TID PRN NASAL CONGESTION Quetiapine Fumarate 100 mg 01/08/17 22:00 01/15/17 21:36 Seroquel - PO 100 mg HS RAINER Administration Ritonavir 100 mg 12/22/16 10:00 01/16/17 10:03 Norvir - PO 100 mg DAILY RAINER Administration Sertraline HCl 100 mg 12/25/16 10:00 01/16/17 10:02 Zoloft - PO 100 mg DAILY RAINER Administration Thiamine HCl 100 mg 12/21/16 22:00 01/15/17 21:36 Vitamin B1 - PO 100 mg HS RAINER Administration Tolnaftate 1 applic 01/02/17 10:00 01/16/17 10:03 Tinactin 1% Cream - TP Not Given BID RAINER Current Side Effect: No Lab tests ordered: No Lab tests reviewed: Yes Provider note:: Patient has completed today his treatment and met his goals, will continue to address his issues at [facility] outpatient substance abuse program. Patient gained insights into his addiction and motivated to continue maintain abstnence. He reported that Campral effective and he has no urges to drink. All medications well tolerated,patient reports his anxiety under control , mood is brighter and he is hopefull. Patient was encouraged to take his medications as directing .Scripts provided. Patient is stable fo dicharge today. Total face to face time:: 35 Mental Status Exam - Mental Status Exam Alert and Oriented to: Time, Place, Person Cognitive Function: Good Patient Appearance: Well Groomed Mood: Hopeful Affect: Appropriate, Mood Congruent Patient Behavior: Appropriate, Cooperative Speech Pattern: Clear, Appropriate Voice Loudness: Normal Thought Process: Intact, Goal Oriented Thought Disorder: Not Present Hallucinations: Denies Suicidal Ideation: Denies Homicidal Ideation: Denies Insight/Judgement: Fair Sleep: Fair Appetite: Fair Muscle strength/Tone: Normal Gait/Station: Normal Psychiatric Treatment Plan - Problem List (1) MDD (major depressive disorder) Current Visit: No Qualifiers: (2) Nicotine dependence Current Visit: No Qualifiers:
== END 2017-01-16 10:40 | disposition home or self-care (01) | DRG 772 ==
LOC: YASAS 13:57 → Y5N 13:58
PROVIDERS: ADMIT Psychiatry & Neurology Psychiatry; ATTEND Psychiatry & Neurology Psychiatry
PROC: HZ42ZZZ Group Counseling for Substance Abuse Treatment, Cognitive-Behavioral (ICD-10-PCS; principal; 2017-01-16)
DX: F10.230 Alcohol dependence with withdrawal, uncomplicated (principal); F17.210 Nicotine dependence, cigarettes, uncomplicated; F33.9 Major depressive disorder, recurrent, unspecified; G47.00 Insomnia, unspecified; J45.909 Unspecified asthma, uncomplicated

== ENCOUNTER 2017-05-12 17:09 | Inpatient (IN) | payer OTHER ==
[2017-05-12 17:38] VITALS: BMI 24.1
--- NOTE | 2017-05-12 17:48 | HP ---
COWS - Scale Resting Pulse: 2= [place] 101-120 Sweatin=Flushed/Facial Moisture Restless Observation: 1= Difficult to Sit Still Pupil Size: 1= Pupils >than Normal Bone or Joint Aches: 1= Mild Discomfort Runny Nose/ Eye Tearin= Runny Nose/Eyes GI Upset > 30mins: 2= Nausea/Diarrhea Tremor Observation: 1= Tremor [place], Not Seen Yawning Observation: 1= 1-2x During Session Anxiety or Irritability: 2=Irritable/Anxious Goose Flesh Skin: 3=Piloerection COWS Score: 18 CIWA Score - CIWA Score Nausea/Vomitin Muscle Tremors: 3 Anxiety: 2 Agitation: 2 Paroxysmal Sweats: 1-Minimal Palms Moist Orientation: 1-Uncertain about Date Tacttile Disturbances: 2-Mild Itch/Numbness/Burn Auditory Disturbances: 1-Very Mild Visual Disturbances: 1-Very Mild Sensitivity Headache: 1-Very Mild CIWA-Ar Total Score: 16 Admission ROS BHS - HPI Chief Complaint: WITHDRAWAL SYMPTOMS Allergies/Adverse Reactions: Allergies Allergy/AdvReac Type Severity Reaction Status Date / Time No Known Allergies Allergy Verified 05/12/17 17:28 History of Present Illness: 56 Y.O. MAN WITH A HISTORY OF OPIOID AND ALCOHOL DEPENDENCE IS HERE SEEKING DETOX. HE WAS LAST HERE FOR DETOX AND REHAB IN December,. HE REPORTS HIS LONGEST PERIOD OF SOBRIETY HAS BEEN 15 YEARS. Exam Limitations: Intoxication - Ebola screening Have you traveled outside of the country in the last 21 days: No Have you had contact with anyone from an Ebola affected area: No Have you been sick,other than usual withdrawal symptoms: No Do you have a fever: No - Review of Systems Constitutional: Diaphoresis, Loss of Appetite, Changes in sleep, Unintentional Wgt. Loss EENT: reports: Blurred Vision, Tearing, Nose Congestion Respiratory: reports: No Symptoms reported Cardiac: reports: Lightheadedness GI: reports: Diarrhea : reports: Dysuria, Pain (D/T KIDNEY STONES) Musculoskeletal: reports: Back Pain, Neck Pain Integumentary: reports: No Symptoms Reported Neuro: reports: Paresthesia Endocrine: reports: No Symptoms Reported Hematology: reports: No Symptoms Reported Psychiatric: reports: Depressed Other Systems: Reviewed and Negative Patient History - Patient Medical History Hx Anemia: No Hx Asthma: Yes Hx Chronic Obstructive Pulmonary Disease (COPD): No Hx Cancer: No Hx Cardiac Disorders: No Hx Congestive Heart Failure: No Hx Hypertension: Yes Hx Hypercholesterolemia: No Hx Pacemaker: No HX Cerebrovascular Accident: No Hx Seizures: No Hx Dementia: No Hx Diabetes: No Hx Gastrointestinal Disorders: Yes (GERD ) Hx Liver Disease: Yes (HCV ) Hx Genitourinary Disorders: No Hx Sexually Transmitted Disorders: Yes (HIV+) Hx Renal Disease (ESRD): No Hx Thyroid Disease: No Hx Human Immunodeficiency Virus (HIV): Yes (since 1989) Hx Hepatitis C: Yes (COMPLETED [place] ) Hx Depression: Yes Hx Suicide Attempt: No Hx Bipolar Disorder: No Hx Schizophrenia: Yes - Patient Surgical History Past Surgical History: Yes Hx Neurologic Surgery: No Hx Cataract Extraction: No Hx Cardiac Surgery: No Hx Lung Surgery: No Hx Breast Surgery: No Hx Breast Biopsy: No Hx Abdominal Surgery: No Hx Appendectomy: No Hx Cholecystectomy: No Hx Genitourinary Surgery: Yes (s/p lithotripsy) Hx Section: No Hx Orthopedic Surgery: No Other Surgical History: strabismus correction in childhood.,surgery of back Anesthesia Reaction: No - PPD History Previous Implant?: Yes Documented Results: Negative w/proof Date: 12/19/16 Results: 0 PPD to be Administered?: No - Reproductive History Patient is a Female of Child Bearing Age (11 -55 yrs old): No - Smoking Cessation Smoking history: Current every day smoker Have you smoked in the past 12 months: Yes Aproximately how many cigarettes per day: 30 Hx Chewing Tobacco Use: No Initiated information on smoking cessation: Yes 'Breaking Loose' booklet given: 05/12/17 - Substance & Tx. History Hx Alcohol Use: Yes Hx Substance Use: Yes Substance Use Type: Alcohol, Heroin Hx Substance Use Treatment: Yes (DETOX AND REHAB: [facility] 12/2016) - Substances Abused Heroin Route: Inhalation Frequency: Daily Amount used: 10 BAGS Age of first use: 9 Date of Last Use: 05/12/17 Alcohol Route: Oral Frequency: Daily Amount used: 1 GALLON DAILY OF LIQUOR Age of first use: 9 Date of Last Use: 05/12/17 Alprazolam (Xanax) Amount used: Family Disease History - Family Disease History Family Disease History: Heart Disease: Grandparent ( ), Brother (ETOH/ OPIOID DEPENDENCE), Other: Brother Admission Physical Exam BHS - Vital Signs Vital Signs: Vital Signs - 24 hr 05/12/17 17:34 Temperature 99.3 F Pulse Rate 108 H Respiratory 18 Rate Blood Pressure 157/111 - Physical General Appearance: Yes: Disheveled, Alcohol on Breath, Sweating, Anxious HEENTM: Yes: Hearing grossly Normal, Normocephalic, Normal Voice Respiratory: Yes: Chest Non-Tender, Lungs Clear, Normal Breath Sounds, No Respiratory Distress, No Accessory Muscle Use Neck: Yes: No masses,lesions,Nodules, Trachea in good position Breast: Yes: Breast Exam Deferred Cardiology: Yes: Regular Rhythm, Tachycardia Abdominal: Yes: Normal Bowel Sounds, Non Tender Genitourinary: Yes: Hesitency, Pain (C/O PAINFUL URINATION D/T B/L KIDNEY STONES ) Back: Yes: Normal Inspection Musculoskeletal: Yes: Back pain Extremities: Yes: Normal Capillary Refill, Normal Inspection, Normal Range of Motion, Non-Tender Neurological: Yes: Alert, Normal Mood/Affect, Normal Response Integumentary: Yes: Normal Color, Dry, Warm Lymphatic: Yes: Within Normal Limits - Diagnostic (1) Kidney stones Current Visit: Yes Status: Acute (2) Alcohol dependence with uncomplicated withdrawal Current Visit: Yes Status: Chronic (3) Arthritis Current Visit: Yes Status: Chronic (4) HIV (human immunodeficiency virus infection) Current Visit: Yes Status: Chronic (5) Nicotine dependence Current Visit: Yes Status: Chronic Qualifiers: (6) Bronchial asthma Current Visit: Yes Status: Chronic Cleared for Admission [facility] - Detox or Rehab [facility] Level of Care: Medically Managed Detox Regimen/Protocol: Methadone/Librium [facility] Breath Alcohol Content Breath Alcohol Content: 0.183 Urine Drug Screen - Results Urine Drug Screen Results: OPI-Opiates, MTD-Methadone
[2017-05-12] MEDS ORDERED: MENTHOL/PHENOL 1 EACH UD MM PRN (18:16)
[2017-05-12] MEDS ORDERED: hydrOXYzine PAMOATE 50 MG CAPSULE (FP) PO PRN (18:16)
[2017-05-12] MEDS ORDERED: MAGNESIUM CITRATE 300 ML BOTTLE PO PRN (18:16)
[2017-05-12] MEDS ORDERED: chlordiazePOXIDE HCL 25 MG CAPSULE PO PRN (18:16)
[2017-05-12] MEDS ORDERED: guaiFENesin/D-METHORPHAN HB 10 ML UNIT-DOSE CUPS PO PRN (18:16)
[2017-05-12] MEDS ORDERED: P-EPHED 60MG/TRIPROLIDI 2.5MG TABLET PO PRN (18:16)
[2017-05-12] MEDS ORDERED: ACETAMINOPHEN 325 MG TABLET (FP) PO PRN (18:16)
[2017-05-12] MEDS ORDERED: MAGNESIUM HYDROX 2400MG/30ML ORAL SUSPENSION 30 ML CUP PO PRN (18:16)
[2017-05-12] MEDS ORDERED: IBUPROFEN 400 MG TABLET (FP) PO PRN (18:16)
[2017-05-12] MEDS ORDERED: LOPERAMIDE HCL 2 MG CAPSULE PO PRN (18:16)
[2017-05-12] MEDS ORDERED: MAG HYDROX/AL HYDROX/SIMETH 30 ML UNIT-DOSE CUP PO PRN (18:16)
[2017-05-12] MEDS ORDERED: ALBUTEROL SO4 18 GM HFA INHALER IH PRN (18:18)
[2017-05-12] MEDS ORDERED: chlordiazePOXIDE HCL 25 MG CAPSULE PO ONE (19:15)
[2017-05-12] MEDS ORDERED: METHADONE HCL 10 MG TABLET (FOR DETOX USE ONLY) PO ONE ×2 (19:15→23:00)
[2017-05-12] MEDS ORDERED: ZOLPIDEM TARTRATE 10 MG TABLET (PARK CARE ONLY) PO ONE (22:00)
[2017-05-12] MEDS: THIAMINE HCL 100 MG TABLET (FP) PO SCH (22:08)
[2017-05-12] MEDS: chlordiazePOXIDE HCL 25 MG CAPSULE PO SCH (22:10)
[2017-05-12 22:45] LABS: URINE APPEARANCE SLCLOUDY; URINE BILIRUBIN NEGATIVE (NEGATIVE); URINE BLOOD 2+ (NEGATIVE); URINE COLOR YELLOW; URINE GLUCOSE (UA) NEGATIVE (NEGATIVE); URINE KETONE TRACE (NEGATIVE); URINE NITRITE NEGATIVE (NEGATIVE); URINE UROBILINOGEN NEGATIVE mg/dL (0.2-1.0)
[2017-05-12 22:46] LABS: URINE PROTEIN 2+ (NEGATIVE)
[2017-05-12 22:47] LABS: URINE MUCUS RARE; URINE RBC 18; URINE WBC 10
[2017-05-13] MEDS: chlordiazePOXIDE HCL 25 MG CAPSULE PO SCH ×4 (05:18→22:28)
[2017-05-13] MEDS: ATAZANAVIR SO4 300 MG CAPSULE PO SCH (07:38)
[2017-05-13] MEDS: RITONAVIR 100 MG TABLET PO SCH (07:38)
[2017-05-13] MEDS: EMTRICITABINE 200MG/TENOFOVIR 300MG PO SCH (07:38)
[2017-05-13] MEDS ORDERED: METHADONE HCL 10 MG TABLET (FOR DETOX USE ONLY) PO SCH (10:00)
[2017-05-13 10:02] LABS: MCH 23.8 pg (25.7-33.7); MCHC 30.9 g/dl (32.0-35.9); MEAN CELL VOLUME 77.1 fl (80-96); MEAN PLT VOLUME 8.8 fl (7.5-11.1); PLATELET COUNT 135 K/MM3 (134-434); RDW 14.5 % (11.9-15.9); WHITE BLOOD COUNT 5.2 K/mm3 (4.0-10.0)
[2017-05-13] MEDS: NICOTINE 21 MG/24 HOURS TOPICAL PATCH TD SCH (10:09)
[2017-05-13] MEDS: PRENATAL VITAMINS W/ FOLIC ACID TABLET (FP) PO SCH (10:09)
--- NOTE | 2017-05-13 10:34 | PN ---
[facility] CIWA - CIWA Score Nausea/Vomitin-No Nausea/No Vomiting Muscle Tremors: 4-Moderate,w/Arms Extend Anxiety: 3 Agitation: 2 Paroxysmal Sweats: 3 Orientation: 2-Disoriented Date<2 days Tacttile Disturbances: 3-Moderate Itch/Numb/Burn Auditory Disturbances: 1-Very Mild Visual Disturbances: 0-None Headache: 0-None Present CIWA-Ar Total Score: 18 BHS COWS - Scale Resting Pulse: 0= [place] 80 or Below Sweatin= Chills/Flushing Restless Observation: 1= Difficult to Sit Still Pupil Size: 0= Normal to Room Light Bone or Joint Aches: 2= Severe Diffuse Aches Runny Nose/ Eye Tearin= None GI Upset > 30mins: 0= None Tremor Observation of Outstretched Hands: 2= Slight Tremor Visible Yawning Observation: 1= 1-2x During Session Anxiety or Irritability: 2=Irritable/Anxious Goose Flesh Skin: 3=Piloerection COWS Score: 12 S Progress Note (SOAP) Subjective: Tremors, Fatigue, Body Aches. Objective: PT. A & O X 2 (UNCERTAIN ABOUT DAY / DATE). PT. OBSERVED AMBULATING ON UNIT. NO ACUTE DISTRESS. 05/13/17 10:30 Vital Signs Temperature 97.1 F L 05/13/17 09:20 Pulse Rate 79 05/13/17 09:20 Respiratory Rate 18 05/13/17 09:20 Blood Pressure 134/82 05/13/17 09:20 O2 Sat by Pulse Oximetry (%) Laboratory Tests 05/12/17 05/13/17 05/13/17 21:30 07:00 07:00 WBC 5.2 RBC 5.23 Hgb 12.4 Hct 40.3 MCV 77.1 L MCH 23.8 L MCHC 30.9 L RDW 14.5 Plt Count 135 MPV 8.8 Sodium 143 Potassium 3.6 Chloride 107 Urine Color Yellow Urine Appearance Slcloudy Urine pH 5.0 Ur Specific [place] 1.020 Urine Protein 2+ H Urine Glucose (UA) Negative Urine Ketones Trace H Urine Blood 2+ H Urine Nitrite Negative Urine Bilirubin Negative Urine Urobilinogen Negative Urine WBC (Auto) 10 Urine RBC (Auto) 18 Ur Epithelial Cells Rare Urine Mucus Rare LABS NOTED. CMP, RPR RESULTS PENDING. 05/13/17 10:33 Assessment: 05/13/17 10:31 WITHDRAWAL SYMPTOMS. Plan: CONTINUE DETOX. INCREASE DAILY PO FLUID INTAKE.
[2017-05-13 10:35] LABS: ALBUMIN 3.2 g/dl (3.4-5.0); ALK PHOS 114 U/L (45-117); ANION GAP 11 (8-16); BILIRUBIN,TOTAL 0.6 mg/dL (0.2-1.0); CALCIUM 8.4 mg/dL (8.5-10.1); CO2 25 mmol/L (21-32); CREATININE 1.3 mg/dL (0.7-1.3); GLUCOSE,RANDOM 93 mg/dL (74-106); SGOT/AST 29 U/L (15-37); SGPT/ALT 27 U/L (12-78); TOT PROT 6.3 g/dl (6.4-8.2)
[2017-05-13 10:57] LABS: URINE LEUK ESTERASE Negative (NEGATIVE)
--- NOTE | 2017-05-13 12:14 | EKG ---
Test Reason : Blood Pressure : / mmHG Vent. Rate : 099 BPM Atrial Rate : 099 BPM P-R Int : 144 ms QRS Dur : 090 ms QT Int : 360 ms P-R-T Axes : 074 050 059 degrees QTc Int : 462 ms NORMAL SINUS RHYTHM POSSIBLE LEFT ATRIAL ENLARGEMENT BORDERLINE ECG WHEN COMPARED WITH ECG OF 17-DEC-2016 14:07, T WAVE INVERSION NOW EVIDENT IN ANTERIOR LEADS Confirmed by TIAGO OCHOA, HO ([id number]) on 05/13/2017 12:14:27 PM Referred By: Confirmed By:HO ORDOÑEZ MD
--- NOTE | 2017-05-13 13:55 | CONSULT ---
[facility] Psychiatric Consult - Data Date of interview: 05/13/17 Admission source: [facility] Identifying data: This is one of multiple admissions to [facility] for this 56 y/ o male seeking detox treatment on for heroin and alcohol dependence.Patient is single without children,domiciled,unemployed and supported on SSI benefits. 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 Smoking history: Current every day smoker. Have you smoked in the past 12 months: Yes. Aproximately how many cigarettes per day: 30. Hx Chewing Tobacco Use: No. Initiated information on smoking cessation: Yes. 'Breaking Loose' booklet given: 05/12/17. - Substance & Tx. History. Hx Alcohol Use: Yes. Hx Substance Use: Yes. Substance Use Type : Alcohol, Heroin. Hx Substance Use Treatment: Yes (DETOX AND REHAB: [facility] 2016). - Substances Abused. Heroin. Route: Inhalation. Frequency: Daily. Amount used: 10 BAGS. Age of first use: 9. Date of Last Use: 05/12/17. Alcohol. Route: Oral. Frequency: Daily. Amount used: 1 GALLON DAILY OF LIQUOR. Age of first use: 9. Date of Last Use: 05/12/17 Medical History: Multiple medical issues : HIV infection sice 1989 (on ART medications),GERD,bronchial asthma,hypertension,hepatitis C,chronic back pain, past surgeries (lithotripsy,strabismus in childhood,back). Psychiatric History: Patient is a distracted,indifferent and irritable historian.Most of longitudinal information is extracted from old records.History of multiple psychiatric hospitalizations ([facility], [facility]).Mr Barahona reports that he used to see a psychiatrist at one of [facility] in the [place].No show since December 2016.Total non-adherence to psychotropic medications.No recollection of past prescribed drugs.Review of pharmacy claims reveals refills for zoloft,gabapentin,campral,seroquel (01/16/17) .Patient declines to resume these medications in this hospital course. Physical/Sexual Abuse/Trauma History: No reported history of abuse. Additional Comment: Urine Drug Screen Results: OPI-Opiates, MTD-Methadone.Noted. Mental Status Exam - Mental Status Exam Alert and Oriented to: Time, Place, Person Cognitive Function: Grossly Intact Patient Appearance: Unkempt, Disheveled Mood: Nervous, Withdrawn, Irritable Affect: Mood Congruent Patient Behavior: Fatigued, Uncooperative, Resitive to Care Speech Pattern: Clear Voice Loudness: Normal Thought Process: Goal Oriented Thought Disorder: Not Present Hallucinations: Denies Suicidal Ideation: Denies Homicidal Ideation: Denies Insight/Judgement: Poor Sleep: Poorly, Difficulty falling asleep Appetite: Good Muscle strength/Tone: Normal Gait/Station: Normal Psychiatric Findings - Problem List ([place] 1, 2,3) (1) Alcohol dependence with uncomplicated withdrawal Current Visit: Yes Status: Acute (2) Opioid dependence with withdrawal Current Visit: Yes Status: Acute (3) Nicotine dependence Current Visit: Yes Status: Chronic Qualifiers: (4) Substance induced mood disorder Current Visit: Yes Status: Acute (5) Insomnia Current Visit: Yes Status: Acute Qualifiers: Insomnia type: unspecified Qualified Code(s): G47.00 - Insomnia, unspecified - Initial Treatment Plan Initial Treatment Plan: Psychoeducation.Sleep hygiene.Detoxification.Ambien 10 mg po hs prn.Side effects/benefits discussed with patient.Mr Barahona is agreable to this careplan.Observation.
[2017-05-13] MEDS ORDERED: TRIMETHOBENZAMIDE HCL 200MG/2ML INJ IM PRN (15:50)
--- NOTE | 2017-05-13 19:20 | PN ---
BHS Progress Note Note: received nurse call that the patient need a pitcher pitcher is available at this time
[2017-05-13 21:02] LABS: URINE APPEARANCE SLCLOUDY; URINE BILIRUBIN NEGATIVE (NEGATIVE); URINE BLOOD NEGATIVE (NEGATIVE); URINE COLOR YELLOW; URINE GLUCOSE (UA) NEGATIVE (NEGATIVE); URINE KETONE NEGATIVE (NEGATIVE); URINE NITRITE NEGATIVE (NEGATIVE); URINE UROBILINOGEN NEGATIVE mg/dL (0.2-1.0)
[2017-05-13 21:11] LABS: URINE PROTEIN 1+ (NEGATIVE)
[2017-05-13 22:01] LABS: CALCIUM OXALATE CRYSTALS FEW /hpf (NONE SEEN); URINE MUCUS RARE; URINE RBC 33; URINE WBC 22
[2017-05-13] MEDS: ZOLPIDEM TARTRATE 10 MG TABLET (PARK CARE ONLY) PO PRN (22:28)
[2017-05-13] MEDS: THIAMINE HCL 100 MG TABLET (FP) PO SCH (22:28)
[2017-05-14] MEDS: chlordiazePOXIDE HCL 25 MG CAPSULE PO SCH ×3 (05:31→16:56)
[2017-05-14] MEDS: ATAZANAVIR SO4 300 MG CAPSULE PO SCH (07:49)
[2017-05-14] MEDS: RITONAVIR 100 MG TABLET PO SCH (07:49)
[2017-05-14] MEDS: EMTRICITABINE 200MG/TENOFOVIR 300MG PO SCH (07:49)
[2017-05-14] MEDS: PRENATAL VITAMINS W/ FOLIC ACID TABLET (FP) PO SCH (10:07)
[2017-05-14] MEDS: METHADONE HCL 5 MG TABLET (FOR DETOX USE ONLY) PO SCH (10:07)
[2017-05-14] MEDS: NICOTINE 21 MG/24 HOURS TOPICAL PATCH TD SCH (10:07)
[2017-05-14 10:52] LABS: URINE LEUK ESTERASE Negative (NEGATIVE)
--- NOTE | 2017-05-14 17:20 | PN ---
[facility] CIWA - CIWA Score Nausea/Vomitin-No Nausea/No Vomiting Muscle Tremors: 3 Anxiety: 4-Mod. Anxious/Guarded Agitation: 3 Paroxysmal Sweats: 3 Orientation: 2-Disoriented Date<2 days Tacttile Disturbances: 1-Very Mild Itch/Numbness Auditory Disturbances: 0-None Visual Disturbances: 0-None Headache: 0-None Present CIWA-Ar Total Score: 16 BHS COWS - Scale Resting Pulse: 0= [place] 80 or Below Sweatin= Chills/Flushing Restless Observation: 1= Difficult to Sit Still Pupil Size: 0= Normal to Room Light Bone or Joint Aches: 2= Severe Diffuse Aches Runny Nose/ Eye Tearin= None GI Upset > 30mins: 1= Stomach Cramp Tremor Observation of Outstretched Hands: 2= Slight Tremor Visible Yawning Observation: 1= 1-2x During Session Anxiety or Irritability: 2=Irritable/Anxious Goose Flesh Skin: 3=Piloerection COWS Score: 13 BHS Progress Note (SOAP) Subjective: Constipation, Fatigue, Tremors, Sweating. Objective: PT. A & O X 2 (UNCERTAIN ABOUT DAY / DATE). PT. OBSERVED AMBULATING ON UNIT. NO ACUTE DISTRESS. 05/14/17 17:18 Vital Signs Temperature 98.6 F 05/14/17 17:05 Pulse Rate 71 05/14/17 17:05 Respiratory Rate 16 05/14/17 17:05 Blood Pressure 109/65 05/14/17 17:05 O2 Sat by Pulse Oximetry (%) Laboratory Tests 05/12/17 05/13/17 05/13/17 21:30 07:00 07:00 WBC 5.2 RBC 5.23 Hgb 12.4 Hct 40.3 MCV 77.1 L MCH 23.8 L MCHC 30.9 L RDW 14.5 Plt Count 135 MPV 8.8 Sodium 143 Potassium 3.6 Chloride 107 Carbon Dioxide 25 Anion Gap 11 BUN 18 Creatinine 1.3 D Creat Clearance w eGFR 57.53 Random Glucose 93 D Calcium 8.4 L Total Bilirubin 0.6 AST 29 ALT 27 D Alkaline Phosphatase 114 Total Protein 6.3 L Albumin 3.2 L D Urine Color Yellow Urine Appearance Slcloudy Urine pH 5.0 Ur Specific [place] 1.020 Urine Protein 2+ H Urine Glucose (UA) Negative Urine Ketones Trace H Urine Blood 2+ H Urine Nitrite Negative Urine Bilirubin Negative Urine Urobilinogen Negative Ur Leukocyte Esterase Negative Urine WBC (Auto) 10 Urine RBC (Auto) 18 Ur Epithelial Cells Rare Calcium Oxalate Crystal Urine Mucus Rare RPR Titer 05/13/17 05/13/17 07:00 15:56 WBC RBC Hgb Hct MCV MCH MCHC RDW Plt Count MPV Sodium Potassium Chloride Carbon Dioxide Anion Gap BUN Creatinine Creat Clearance w eGFR Random Glucose Calcium Total Bilirubin AST ALT Alkaline Phosphatase Total Protein Albumin Urine Color Yellow Urine Appearance Slcloudy Urine pH 6.0 Ur Specific [place] 1.020 Urine Protein 1+ H Urine Glucose (UA) Negative Urine Ketones Negative Urine Blood Negative Urine Nitrite Negative Urine Bilirubin Negative Urine Urobilinogen Negative Ur Leukocyte Esterase Negative Urine WBC (Auto) 22 Urine RBC (Auto) 33 Ur Epithelial Cells Calcium Oxalate Crystal Few Urine Mucus Rare RPR Titer Nonreactive LABS NOTED. Assessment: 05/14/17 17:19 WITHDRAWAL SYMPTOMS. Plan: CONTINUE DETOX. INCREASE DAILY PO FLUID INTAKE.
[2017-05-14] MEDS: THIAMINE HCL 100 MG TABLET (FP) PO SCH (22:16)
[2017-05-14] MEDS: chlordiazePOXIDE 5 MG CAPSULE PO SCH (22:17)
[2017-05-14] MEDS: ZOLPIDEM TARTRATE 10 MG TABLET (PARK CARE ONLY) PO PRN (22:17)
[2017-05-15] MEDS: chlordiazePOXIDE 5 MG CAPSULE PO SCH ×3 (05:33→16:43)
[2017-05-15] MEDS: RITONAVIR 100 MG TABLET PO SCH (07:28)
[2017-05-15] MEDS: EMTRICITABINE 200MG/TENOFOVIR 300MG PO SCH (07:28)
[2017-05-15] MEDS: ATAZANAVIR SO4 300 MG CAPSULE PO SCH (07:28)
[2017-05-15] MEDS: PRENATAL VITAMINS W/ FOLIC ACID TABLET (FP) PO SCH (10:29)
[2017-05-15] MEDS: METHADONE HCL 5 MG TABLET (FOR DETOX USE ONLY) PO SCH (10:29)
[2017-05-15] MEDS: NICOTINE 21 MG/24 HOURS TOPICAL PATCH TD SCH (10:29)
--- NOTE | 2017-05-15 14:44 | PN ---
BHS Progress Note (SOAP) Subjective: Aches, Poor Appetite, Fatigue. Objective: PT. A & O X 2 (UNCERTAIN ABOUT DAY / DATE). PT. OBSERVED AMBULATING ON UNIT. NO ACUTE DISTRESS. 05/15/17 14:42 Vital Signs Temperature 97.0 F L 05/15/17 13:41 Pulse Rate 87 05/15/17 13:41 Respiratory Rate 17 05/15/17 13:41 Blood Pressure 131/89 05/15/17 13:41 O2 Sat by Pulse Oximetry (%) Laboratory Tests 05/12/17 05/13/17 05/13/17 21:30 07:00 07:00 WBC 5.2 RBC 5.23 Hgb 12.4 Hct 40.3 MCV 77.1 L MCH 23.8 L MCHC 30.9 L RDW 14.5 Plt Count 135 MPV 8.8 Sodium 143 Potassium 3.6 Chloride 107 Carbon Dioxide 25 Anion Gap 11 BUN 18 Creatinine 1.3 D Creat Clearance w eGFR 57.53 Random Glucose 93 D Calcium 8.4 L Total Bilirubin 0.6 AST 29 ALT 27 D Alkaline Phosphatase 114 Total Protein 6.3 L Albumin 3.2 L D Urine Color Yellow Urine Appearance Slcloudy Urine pH 5.0 Ur Specific [place] 1.020 Urine Protein 2+ H Urine Glucose (UA) Negative Urine Ketones Trace H Urine Blood 2+ H Urine Nitrite Negative Urine Bilirubin Negative Urine Urobilinogen Negative Ur Leukocyte Esterase Negative Urine WBC (Auto) 10 Urine RBC (Auto) 18 Ur Epithelial Cells Rare Calcium Oxalate Crystal Urine Mucus Rare RPR Titer 05/13/17 05/13/17 07:00 15:56 WBC RBC Hgb Hct MCV MCH MCHC RDW Plt Count MPV Sodium Potassium Chloride Carbon Dioxide Anion Gap BUN Creatinine Creat Clearance w eGFR Random Glucose Calcium Total Bilirubin AST ALT Alkaline Phosphatase Total Protein Albumin Urine Color Yellow Urine Appearance Slcloudy Urine pH 6.0 Ur Specific [place] 1.020 Urine Protein 1+ H Urine Glucose (UA) Negative Urine Ketones Negative Urine Blood Negative Urine Nitrite Negative Urine Bilirubin Negative Urine Urobilinogen Negative Ur Leukocyte Esterase Negative Urine WBC (Auto) 22 Urine RBC (Auto) 33 Ur Epithelial Cells Calcium Oxalate Crystal Few Urine Mucus Rare RPR Titer Nonreactive LABS NOTED. Assessment: 05/15/17 14:42 WITHDRAWAL SYMPTOMS. Plan: CONTINUE DETOX.
[2017-05-15] MEDS: chlordiazePOXIDE HCL 10 MG CAPSULE PO SCH (22:12)
[2017-05-15] MEDS: ZOLPIDEM TARTRATE 10 MG TABLET (PARK CARE ONLY) PO PRN (22:12)
[2017-05-15] MEDS: THIAMINE HCL 100 MG TABLET (FP) PO SCH (22:12)
[2017-05-16] MEDS: chlordiazePOXIDE HCL 10 MG CAPSULE PO SCH ×3 (05:28→17:18)
[2017-05-16] MEDS: ATAZANAVIR SO4 300 MG CAPSULE PO SCH (07:25)
[2017-05-16] MEDS: EMTRICITABINE 200MG/TENOFOVIR 300MG PO SCH (07:26)
[2017-05-16] MEDS: RITONAVIR 100 MG TABLET PO SCH (07:26)
[2017-05-16] MEDS ORDERED: METHADONE HCL 10 MG TABLET (FOR DETOX USE ONLY) PO SCH (10:00)
[2017-05-16] MEDS: PRENATAL VITAMINS W/ FOLIC ACID TABLET (FP) PO SCH (10:10)
[2017-05-16] MEDS: NICOTINE 21 MG/24 HOURS TOPICAL PATCH TD SCH (10:10)
--- NOTE | 2017-05-16 13:11 | PN ---
BHS Progress Note (SOAP) Subjective: Interrupted sleep, Fatigue, Stomach Cramping. Objective: PT. A & O X 3, OBSERVED AMBULATING ON UNIT. NO ACUTE DISTRESS. 05/16/17 13:09 Vital Signs Temperature 96.7 F L 05/16/17 09:16 Pulse Rate 88 05/16/17 09:16 Respiratory Rate 18 05/16/17 09:16 Blood Pressure 130/93 05/16/17 09:16 O2 Sat by Pulse Oximetry (%) Laboratory Tests 05/12/17 05/13/17 05/13/17 21:30 07:00 07:00 WBC 5.2 RBC 5.23 Hgb 12.4 Hct 40.3 MCV 77.1 L MCH 23.8 L MCHC 30.9 L RDW 14.5 Plt Count 135 MPV 8.8 Sodium 143 Potassium 3.6 Chloride 107 Carbon Dioxide 25 Anion Gap 11 BUN 18 Creatinine 1.3 D Creat Clearance w eGFR 57.53 Random Glucose 93 D Calcium 8.4 L Total Bilirubin 0.6 AST 29 ALT 27 D Alkaline Phosphatase 114 Total Protein 6.3 L Albumin 3.2 L D Urine Color Yellow Urine Appearance Slcloudy Urine pH 5.0 Ur Specific [place] 1.020 Urine Protein 2+ H Urine Glucose (UA) Negative Urine Ketones Trace H Urine Blood 2+ H Urine Nitrite Negative Urine Bilirubin Negative Urine Urobilinogen Negative Ur Leukocyte Esterase Negative Urine WBC (Auto) 10 Urine RBC (Auto) 18 Ur Epithelial Cells Rare Calcium Oxalate Crystal Urine Mucus Rare RPR Titer 05/13/17 05/13/17 07:00 15:56 WBC RBC Hgb Hct MCV MCH MCHC RDW Plt Count MPV Sodium Potassium Chloride Carbon Dioxide Anion Gap BUN Creatinine Creat Clearance w eGFR Random Glucose Calcium Total Bilirubin AST ALT Alkaline Phosphatase Total Protein Albumin Urine Color Yellow Urine Appearance Slcloudy Urine pH 6.0 Ur Specific [place] 1.020 Urine Protein 1+ H Urine Glucose (UA) Negative Urine Ketones Negative Urine Blood Negative Urine Nitrite Negative Urine Bilirubin Negative Urine Urobilinogen Negative Ur Leukocyte Esterase Negative Urine WBC (Auto) 22 Urine RBC (Auto) 33 Ur Epithelial Cells Calcium Oxalate Crystal Few Urine Mucus Rare RPR Titer Nonreactive LABS NOTED. Assessment: 05/16/17 13:09 WITHDRAWAL SYMPTOMS. Plan: CONTINUE DETOX. INCREASE DAILY PO FLUID INTAKE.
[2017-05-16] MEDS: THIAMINE HCL 100 MG TABLET (FP) PO SCH (22:03)
[2017-05-17] MEDS ORDERED: METHADONE HCL 5 MG TABLET (FOR DETOX USE ONLY) PO SCH (06:00)
[2017-05-17 06:44] VITALS: BP 123/84; PULSE 72; TEMP 98.6
[2017-05-17] MEDS: RITONAVIR 100 MG TABLET PO SCH (07:29)
[2017-05-17] MEDS: EMTRICITABINE 200MG/TENOFOVIR 300MG PO SCH (07:30)
[2017-05-17] MEDS: ATAZANAVIR SO4 300 MG CAPSULE PO SCH (07:30)
--- NOTE | 2017-05-17 13:08 | DS ---
[facility] Detox Discharge Summary Admission Date: 05/12/17 Discharge Date: 05/17/17 - History Present History: Alcohol Dependence, Opioid Dependence Pertinent Past History: Asthma HTN GERD HIV Hepatitis C - Physical Exam Results Vital Signs: Vital Signs Temperature 98.6 F 05/17/17 06:43 Pulse Rate 72 05/17/17 06:43 Respiratory Rate 18 05/17/17 06:43 Blood Pressure 123/84 05/17/17 06:43 O2 Sat by Pulse Oximetry (%) Pertinent Admission Physical Exam Findings: Withdrawal symptoms Laboratory Tests 05/12/17 05/13/17 05/13/17 21:30 07:00 07:00 WBC 5.2 RBC 5.23 Hgb 12.4 Hct 40.3 MCV 77.1 L MCH 23.8 L MCHC 30.9 L RDW 14.5 Plt Count 135 MPV 8.8 Sodium 143 Potassium 3.6 Chloride 107 Carbon Dioxide 25 Anion Gap 11 BUN 18 Creatinine 1.3 D Creat Clearance w eGFR 57.53 Random Glucose 93 D Calcium 8.4 L Total Bilirubin 0.6 AST 29 ALT 27 D Alkaline Phosphatase 114 Total Protein 6.3 L Albumin 3.2 L D Urine Color Yellow Urine Appearance Slcloudy Urine pH 5.0 Ur Specific [place] 1.020 Urine Protein 2+ H Urine Glucose (UA) Negative Urine Ketones Trace H Urine Blood 2+ H Urine Nitrite Negative Urine Bilirubin Negative Urine Urobilinogen Negative Ur Leukocyte Esterase Negative Urine WBC (Auto) 10 Urine RBC (Auto) 18 Ur Epithelial Cells Rare Calcium Oxalate Crystal Urine Mucus Rare RPR Titer 05/13/17 05/13/17 07:00 15:56 WBC RBC Hgb Hct MCV MCH MCHC RDW Plt Count MPV Sodium Potassium Chloride Carbon Dioxide Anion Gap BUN Creatinine Creat Clearance w eGFR Random Glucose Calcium Total Bilirubin AST ALT Alkaline Phosphatase Total Protein Albumin Urine Color Yellow Urine Appearance Slcloudy Urine pH 6.0 Ur Specific [place] 1.020 Urine Protein 1+ H Urine Glucose (UA) Negative Urine Ketones Negative Urine Blood Negative Urine Nitrite Negative Urine Bilirubin Negative Urine Urobilinogen Negative Ur Leukocyte Esterase Negative Urine WBC (Auto) 22 Urine RBC (Auto) 33 Ur Epithelial Cells Calcium Oxalate Crystal Few Urine Mucus Rare RPR Titer Nonreactive Labs noted - Treatment Hospital Course: Detox Protocol Followed, Detoxed Safely, Responded well, Discharged Condition Good - Medication Discharge Medications: Ambulatory Orders Gabapentin [Neurontin] 600 mg PO TID 12/17/16 Atazanavir [Reyataz -] 300 mg PO DAILY #30 mg 01/14/17 Emtricitabine/Tenofovir [Truvada -] 1 tab PO DAILY #30 tablet 01/14/17 Ibuprofen 800 mg PO Q8H PRN #30 mg 01/14/17 Ritonavir [Norvir -] 100 mg PO DAILY #30 mg 01/14/17 Acamprosate Calcium [Campral -] 666 mg PO TID #180 tab 01/16/17 Gabapentin [Neurontin -] 600 mg PO TID #90 tab 01/16/17 Quetiapine Fumarate [Seroquel -] 100 mg PO HS #30 tablet 01/16/17 Sertraline HCl [Zoloft -] 100 mg PO DAILY #30 tablet 01/16/17 Albuterol Sulfate Inhaler - [Ventolin HFA Inhaler -] 2 puff IH Q4H PRN #1 inhaler 05/16/17 - Diagnosis (1) HTN (hypertension), benign Status: Chronic (2) Alcohol dependence with uncomplicated withdrawal Status: Acute (3) Opioid dependence with withdrawal Status: Acute (4) Bronchial asthma Status: Chronic (5) HIV (human immunodeficiency virus infection) Status: Chronic (6) MDD (major depressive disorder) Status: Chronic Qualifiers: (7) Nicotine dependence Status: Chronic Qualifiers: (8) GERD (gastroesophageal reflux disease) Status: Chronic (9) Hepatitis C Status: Chronic - AMA Did Patient Leave Against Medical Advice: No (F/U with PCP in 1-2 weeks)
== END 2017-05-17 08:33 | disposition home or self-care (01) | DRG 773 ==
LOC: YASAS 17:09 → Y3N 18:26
PROVIDERS: ADMIT Internal Medicine; ATTEND Internal Medicine
PROC: HZ2ZZZZ Detoxification Services for Substance Abuse Treatment (ICD-10-PCS; principal; 2017-05-12)
DX: F11.23 Opioid dependence with withdrawal (principal); F10.230 Alcohol dependence with withdrawal, uncomplicated; F17.210 Nicotine dependence, cigarettes, uncomplicated; B18.2 Chronic viral hepatitis C; I10 Essential (primary) hypertension; K21.9 Gastro-esophageal reflux disease without esophagitis; J45.909 Unspecified asthma, uncomplicated; Z21 Asymptomatic human immunodeficiency virus [HIV] infection status
CPT/HCPCS: 36415; 80053; 81003; 81015; 85027; 86593; 93005; 93010

== ENCOUNTER 2018-03-11 12:46 | Inpatient (IN) | payer OTHER ==
[2018-03-11 14:46] VITALS: BMI 25.0
--- NOTE | 2018-03-11 19:06 | HP ---
CIWA Score - CIWA Score Nausea/Vomitin-No Nausea/No Vomiting Muscle Tremors: 2 Anxiety: 3 Agitation: 3 Paroxysmal Sweats: 2 Orientation: 1-Uncertain about Date (no distress) Tacttile Disturbances: 2-Mild Itch/Numbness/Burn (both upper extremities) Auditory Disturbances: 0-None Visual Disturbances: 1-Very Mild Sensitivity Headache: 0-None Present CIWA-Ar Total Score: 14 Admission ROS S - HPI Chief Complaint: alcohol withdrawal symptoms Allergies/Adverse Reactions: Allergies Allergy/AdvReac Type Severity Reaction Status Date / Time No Known Allergies Allergy Verified 03/11/18 17:11 History of Present Illness: 57 yo male with hx of nicotine, THC, cocaine, alcohol dependence is here seeking detox. Last detox 05/02/17 - 05/17/17 at [facility]. PMHX; asthma, Chronic back pain, HIV, OA both knee, Hep C, depression, bipolar, insomnia. Patient reports he's on MMTP, unable to name the facility or provide contact information , reports he's on methadone 20 mg, dose pending verification. Denies hx of seizure or blackout. Reports no significant period of sobriety. Exam Limitations: No Limitations - Ebola screening Have you traveled outside of the country in the last 21 days: No Have you had contact with anyone from an Ebola affected area: No Have you been sick,other than usual withdrawal symptoms: No Do you have a fever: No - Review of Systems Constitutional: Loss of Appetite, Changes in sleep, Unintentional Wgt. Loss EENT: reports: No Symptoms Reported, Other ([place]) Respiratory: reports: No Symptoms reported Cardiac: reports: Lightheadedness GI: reports: Poor Appetite, Poor Fluid Intake Musculoskeletal: reports: Back Pain, Joint Pain, Other (uses walker for ambulation) Integumentary: reports: No Symptoms Reported Neuro: reports: No Symptoms reported Endocrine: reports: Increased Thirst Hematology: reports: No Symptoms Reported Psychiatric: reports: Orientated x3, Anxious Other Systems: Reviewed and Negative Patient History - Patient Medical History Hx Anemia: No Hx Asthma: Yes Hx Chronic Obstructive Pulmonary Disease (COPD): No Hx Cancer: No Hx Cardiac Disorders: No Hx Congestive Heart Failure: No Hx Hypertension: No Hx Hypercholesterolemia: No Hx Pacemaker: No HX Cerebrovascular Accident: No Hx Seizures: No Hx Dementia: No Hx Diabetes: No Hx Gastrointestinal Disorders: No Hx Liver Disease: Yes (HCV ) Hx Genitourinary Disorders: No Hx Sexually Transmitted Disorders: No Hx Renal Disease (ESRD): No Hx Thyroid Disease: No Hx Human Immunodeficiency Virus (HIV): Yes (since 1989) Hx Hepatitis C: Yes (COMPLETED [place] ) Hx Depression: Yes Hx Suicide Attempt: No Hx Bipolar Disorder: No Hx Schizophrenia: No - Patient Surgical History Past Surgical History: Yes Hx Neurologic Surgery: No Hx Cataract Extraction: No Hx Cardiac Surgery: No Hx Lung Surgery: No Hx Breast Surgery: No Hx Breast Biopsy: No Hx Abdominal Surgery: No Hx Appendectomy: No Hx Cholecystectomy: No Hx Genitourinary Surgery: Yes (s/p lithotripsy) Hx Section: No Hx Orthopedic Surgery: No Other Surgical History: strabismus correction in childhood.,surgery of back Anesthesia Reaction: No - PPD History Previous Implant?: Yes Documented Results: Negative w/proof Implanted On Prior [facility] Admission?: No Date: 12/19/16 Results: 0 PPD to be Administered?: Yes - Reproductive History Patient : No - Smoking Cessation Smoking history: Current every day smoker Have you smoked in the past 12 months: Yes Aproximately how many cigarettes per day: 30 Hx Chewing Tobacco Use: No Initiated information on smoking cessation: Yes 'Breaking Loose' booklet given: 03/11/18 - Substance & Tx. History Hx Alcohol Use: Yes Hx Substance Use: Yes Substance Use Type: Alcohol, Cocaine, Marijuana Hx Substance Use Treatment: Yes (Last detox 05/02/17 - 05/17/17 at [facility]) - Substances Abused Alcohol Route: Oral Frequency: Daily Amount used: 1/2 GALLON ALCOHOL Age of first use: 9 Date of Last Use: 03/11/18 MARIJUNA Route: Smoking Frequency: 1-2 times per week Amount used: $10 Age of first use: 9 Date of Last Use: 03/10/18 Family Disease History - Family Disease History Family Disease History: Heart Disease: Grandparent ( ), Brother (ETOH/ OPIOID DEPENDENCE), Other: Brother Admission Physical Exam BHS - Vital Signs Vital Signs: Vital Signs - 24 hr 03/11/18 14:44 Temperature 97.4 F L Pulse Rate 101 H Respiratory 17 Rate Blood Pressure 149/97 - Physical General Appearance: Yes: Disheveled, Mild Distress, Tremorous, Anxious HEENTM: Yes: EOMI, Normal ENT Inspection, Normocephalic, Normal Voice, MARIO, Pharynx Normal, Tm's normal, Hearing Decreased, Other (involuntary rolling of the tongue around in the mouth, cheilithis) Respiratory: Yes: Chest Non-Tender, Lungs Clear, Normal Breath Sounds, No Respiratory Distress, No Accessory Muscle Use Neck: Yes: Within Normal Limits Breast: Yes: Breast Exam Deferred Cardiology: Yes: Regular Rhythm, Regular Rate Abdominal: Yes: Normal Bowel Sounds, Non Tender, Flat, Soft Genitourinary: Yes: Within Normal Limits Back: Yes: Normal Inspection Musculoskeletal: Yes: full range of Motion, Gait Steady, Pelvis Stable, Back pain Extremities: Yes: Normal Capillary Refill, Normal Inspection, Normal Range of Motion, Non-Tender Neurological: Yes: director of email marketing II-XII NML intact, Fully Oriented, Motor Strength 5/5, Depressed Affect Integumentary: Yes: Normal Color, Warm, Diaphoresis Lymphatic: Yes: Within Normal Limits - Diagnostic (1) Chronic back pain Current Visit: Yes Status: Acute (2) Alcohol dependence with uncomplicated withdrawal Current Visit: Yes Status: Acute (3) Use of cane as ambulatory aid Current Visit: Yes Status: Chronic (4) Arthritis Current Visit: Yes Status: Chronic (5) Bronchial asthma Current Visit: Yes Status: Chronic Qualifiers: Asthma severity: mild Asthma persistence: unspecified Asthma complication type: uncomplicated Qualified Code(s): J45.909 - Unspecified asthma, uncomplicated (6) GERD (gastroesophageal reflux disease) Current Visit: Yes Status: Chronic Qualifiers: Esophagitis presence: without esophagitis Qualified Code(s): K21.9 - Gastro -esophageal reflux disease without esophagitis (7) HIV (human immunodeficiency virus infection) Current Visit: Yes Status: Chronic (8) HTN (hypertension), benign Current Visit: Yes Status: Chronic (9) Nicotine dependence Current Visit: Yes Status: Chronic Qualifiers: Nicotine product type: cigarettes Cleared for Admission S - Detox or Rehab [facility] Level of Care: Medically Managed Detox Regimen/Protocol: Librium [facility] Breath Alcohol Content Breath Alcohol Content: 0.260 Urine Drug Screen - Results Drug Screen Negative: Yes
[2018-03-11] MEDS ORDERED: MAG HYDROX/AL HYDROX/SIMETH 30 ML UNIT-DOSE CUP PO PRN (19:17)
[2018-03-11] MEDS ORDERED: ALBUTEROL SO4 8 GM HFA INHALER IH PRN (19:17)
[2018-03-11] MEDS ORDERED: NICOTINE POLACRILEX 4 MG GUM BC PRN (19:17)
[2018-03-11] MEDS ORDERED: hydrOXYzine PAMOATE 50 MG CAPSULE (FP) PO PRN (19:17)
[2018-03-11] MEDS ORDERED: IBUPROFEN 400 MG TABLET (FP) PO PRN (19:17)
[2018-03-11] MEDS ORDERED: guaiFENesin/D-METHORPHAN HB 10 ML UNIT-DOSE CUPS PO PRN (19:17)
[2018-03-11] MEDS ORDERED: MENTHOL/PHENOL 1 EACH UD MM PRN (19:17)
[2018-03-11] MEDS ORDERED: MAGNESIUM CITRATE 300 ML BOTTLE PO PRN (19:17)
[2018-03-11] MEDS ORDERED: ACETAMINOPHEN 325 MG TABLET (FP) PO PRN (19:17)
[2018-03-11] MEDS ORDERED: MAGNESIUM HYDROX 2400MG/30ML ORAL SUSPENSION 30 ML CUP PO PRN (19:17)
[2018-03-11] MEDS ORDERED: chlordiazePOXIDE HCL 25 MG CAPSULE PO PRN (19:17)
[2018-03-11] MEDS ORDERED: P-EPHED 60MG/TRIPROLIDI 2.5MG TABLET PO PRN (19:17)
[2018-03-11] MEDS ORDERED: LOPERAMIDE HCL 2 MG CAPSULE PO PRN (19:17)
[2018-03-11] MEDS ORDERED: chlordiazePOXIDE HCL 25 MG CAPSULE PO ONE (19:30)
[2018-03-11] MEDS: chlordiazePOXIDE HCL 25 MG CAPSULE PO SCH (22:18)
[2018-03-11] MEDS: THIAMINE HCL 100 MG TABLET (FP) PO SCH (22:18)
[2018-03-12] MEDS: chlordiazePOXIDE HCL 25 MG CAPSULE PO SCH ×4 (05:29→22:11)
--- NOTE | 2018-03-12 09:36 | EKG ---
Test Reason : Blood Pressure : / mmHG Vent. Rate : 077 BPM Atrial Rate : 077 BPM P-R Int : 152 ms QRS Dur : 094 ms QT Int : 396 ms P-R-T Axes : 067 040 057 degrees QTc Int : 448 ms NORMAL SINUS RHYTHM NORMAL ECG WHEN COMPARED WITH ECG OF 12-MAY-2017 21:06, NO SIGNIFICANT CHANGE WAS FOUND Confirmed by PHYLLIS RICARDO MD ([id number]) on 03/12/2018 9:36:00 AM Referred By: Confirmed By:PHYLLIS RICARDO MD
[2018-03-12] MEDS: PRENATAL VITAMINS W/ FOLIC ACID TABLET (FP) PO SCH (10:51)
[2018-03-12] MEDS: NICOTINE 21 MG/24 HOURS TOPICAL PATCH TD SCH (10:51)
[2018-03-12 11:15] LABS: HEMATOCRIT 37.9 % (35.4-49); HEMOGLOBIN 11.7 GM/dL (11.7-16.9); MCH 25.2 pg (25.7-33.7); MCHC 30.8 g/dl (32.0-35.9); MEAN CELL VOLUME 81.7 fl (80-96); MEAN PLT VOLUME 8.3 fl (7.5-11.1); PLATELET COUNT 83 K/MM3 (134-434); RBC 4.65 M/mm3 (4.00-5.60); WHITE BLOOD COUNT 3.2 K/mm3 (4.0-10.0)
[2018-03-12 11:19] LABS: CHLORIDE 107 mmol/L (98-107); POTASSIUM 3.5 mmol/L (3.5-5.1); SODIUM 144 mmol/L (136-145)
[2018-03-12 11:30] LABS: ALBUMIN 3.3 g/dl (3.4-5.0); ALK PHOS 106 U/L (45-117); ANION GAP 10 MMOL/L (8-16); BILIRUBIN,TOTAL 0.8 mg/dL (0.2-1.0); BLOOD UREA NITROGEN 21 mg/dL (7-18); CALCIUM 8.2 mg/dL (8.5-10.1); CO2 27 mmol/L (21-32); CREATININE 1.1 mg/dL (0.55-1.3); GLUCOSE,RANDOM 93 mg/dL (74-106); SGOT/AST 28 U/L (15-37); SGPT/ALT 34 U/L (13-61)
--- NOTE | 2018-03-12 11:55 | PN ---
S CIWA - CIWA Score Nausea/Vomitin Muscle Tremors: 2 Anxiety: 2 Agitation: 2 Paroxysmal Sweats: 2 Orientation: 0-Oriented Tacttile Disturbances: 2-Mild Itch/Numbness/Burn Auditory Disturbances: 0-None Visual Disturbances: 0-None Headache: 1-Very Mild CIWA-Ar Total Score: 13 S Progress Note (SOAP) Subjective: interrupted sleep, diarrhea, anxious Objective: 03/12/18 11:53 Vital Signs Temperature 97.8 F 03/12/18 09:13 Pulse Rate 69 03/12/18 09:13 Respiratory Rate 18 03/12/18 09:13 Blood Pressure 132/89 03/12/18 09:13 O2 Sat by Pulse Oximetry (%) Laboratory Last Values WBC 3.2 K/mm3 (4.0-10.0) L 03/12/18 07:20 RBC 4.65 M/mm3 (4.00-5.60) 03/12/18 07:20 Hgb 11.7 GM/dL (11.7-16.9) 03/12/18 07:20 Hct 37.9 % (35.4-49) 03/12/18 07:20 MCV 81.7 fl (80-96) 03/12/18 07:20 MCH 25.2 pg (25.7-33.7) L 03/12/18 07:20 MCHC 30.8 g/dl (32.0-35.9) L 03/12/18 07:20 RDW 15.0 % (11.9-15.9) 03/12/18 07:20 Plt Count 83 K/MM3 (134-434) L D 03/12/18 07:20 MPV 8.3 fl (7.5-11.1) 03/12/18 07:20 Sodium 144 mmol/L (136-145) 03/12/18 07:20 Potassium 3.5 mmol/L (3.5-5.1) 03/12/18 07:20 Chloride 107 mmol/L (98-107) 03/12/18 07:20 Carbon Dioxide 27 mmol/L (21-32) 03/12/18 07:20 Anion Gap 10 MMOL/L (8-16) 03/12/18 07:20 BUN 21 mg/dL (7-18) H 03/12/18 07:20 Creatinine 1.1 mg/dL (0.55-1.3) 03/12/18 07:20 Creat Clearance w eGFR > 60 (>60) 03/12/18 07:20 Random Glucose 93 mg/dL (74-106) 03/12/18 07:20 Calcium 8.2 mg/dL (8.5-10.1) L 03/12/18 07:20 Total Bilirubin 0.8 mg/dL (0.2-1.0) 03/12/18 07:20 AST 28 U/L (15-37) 03/12/18 07:20 ALT 34 U/L (13-61) 03/12/18 07:20 Alkaline Phosphatase 106 U/L (45-117) 03/12/18 07:20 Total Protein 6.0 g/dl (6.4-8.2) L 03/12/18 07:20 Albumin 3.3 g/dl (3.4-5.0) L 03/12/18 07:20 AOx3 no distress no adventitious breath sounds BS x4 non tender, non-distended full ROM ambulating with walker Assessment: 03/12/18 11:54 withdrawal sx Plan: immodium PRN increase fluids continue detox continue to monitor
--- NOTE | 2018-03-12 12:23 | CONSULT ---
[facility] Psychiatric Consult - Data Date of interview: 03/12/18 Admission source: [facility] Identifying data: Readmission to [facility] for this 57 y/o male self- referred for detoxification treatment (heroin,cocaine,cannabis,alcohol) .Admitted to [address] [place] [address].Patient is single without children,domiciled,unemployed and supported on SSI benefits. Substance Abuse History: Confirmed by the patient in this interview.Details in current [facility] report : Smoking history: Current every day smoker. Have you smoked in the past 12 months: Yes. Aproximately how many cigarettes per day: 30. Hx Chewing Tobacco Use: No. Initiated information on smoking cessation: Yes. 'Breaking Loose' booklet given: 03/11/18. - Substance & Tx. History. Hx Alcohol Use: Yes. Hx Substance Use: Yes. Substance Use Type: Alcohol, Cocaine , Marijuana. Hx Substance Use Treatment: Yes (Last detox 05/02/17 - 05/17/17 at [facility]). - Substances Abused. Alcohol. Route: Oral. Frequency: Daily. Amount used: 1/2 GALLON ALCOHOL. Age of first use: 9. Date of Last Use: . MARIJUNA. Route: Smoking. Frequency: 1-2 times per week. Amount used : $10. Age of first use: 9. Date of Last Use: 03/10/18 Medical History: Patient ambulates with a rolling walker.Medical co-morbidities are consistent with : HIV infection sic1989 (on ART medications),GERD, bronchial asthma,hypertension,hepatitis C,chronic back pain,arthritis of both knees,past surgeries (lithotripsy,strabismus in childhood,back). Psychiatric History: Patient is an unreliable historian.In this interview, he denies history of psychiatric hospitalizations.However, records indicate otherwise as evidenced by the following data extracted from my previous notes : " history of multiple psychiatric hospitalizations ([facility], [facility]).Mr Barahona reports that he used to see a psychiatrist at one of [facility] OPD clinics in the [place].No show since December 2016.Total non-adherence to psychotropic medications.No recollection of past prescribed drugs.Review of pharmacy claims reveals refills for zoloft,gabapentin,campral,seroquel (01/16/17) ." Patient states that he does not recall the names of his psychotropic medications. " They give me something for depression.I don't remember." Reports psychiatric OPD care at [facility] (Inderjit Jensen).Diagnosed with MDD (as per records).Patient denies history of suicide attempts. Physical/Sexual Abuse/Trauma History: Patient denies. Additional Comment: Drug Screen is negative. Mental Status Exam - Mental Status Exam Alert and Oriented to: Time, Place, Person Cognitive Function: Grossly Intact Patient Appearance: Unkempt, Disheveled Mood: Nervous, Withdrawn, Apprehensive Affect: Mood Congruent, Constricted Patient Behavior: Fatigued, Cooperative Speech Pattern: Delayed, Slurred Voice Loudness: Moderately Soft/Quiet Thought Process: Goal Oriented Thought Disorder: Not Present Hallucinations: Denies Suicidal Ideation: Denies Homicidal Ideation: Denies Insight/Judgement: Poor Sleep: Well Appetite: Fair Gait/Station: Other (ambulates with a rolling walker) Psychiatric Findings - Problem List ([place] 1, 2,3) (1) Alcohol dependence with uncomplicated withdrawal Current Visit: Yes Status: Acute (2) Nicotine dependence Current Visit: Yes Status: Acute Qualifiers: Nicotine product type: cigarettes (3) Substance induced mood disorder Current Visit: Yes Status: Acute (4) Insomnia Current Visit: Yes Status: Acute Qualifiers: Insomnia type: unspecified Qualified Code(s): G47.00 - Insomnia, unspecified - Initial Treatment Plan Initial Treatment Plan: Psychoeducation.Sleep hygiene.Detoxification in progress.Falls precautions.Contact made with pharmacist ([facility]) at [phone] : no refills since December 2017 ; last script was for trazodone 50 mg/ hs.Discussed with the patient.Mr Barahona confirms this medication (admits to sporadic non-adherence).Requests its addition to current medication regimen.Made aware of potential for priapism.Consented (verbally).Observation.
[2018-03-12 15:50] LABS: URINE APPEARANCE CLEAR; URINE BILIRUBIN NEGATIVE (<2.0 mg/dL); URINE COLOR YELLOW; URINE GLUCOSE (UA) NEGATIVE (NEGATIVE); URINE KETONE NEGATIVE (NEGATIVE); URINE LEUK ESTERASE NEGATIVE (NEGATIVE); URINE NITRITE NEGATIVE (NEGATIVE); URINE PROTEIN NEGATIVE (NEGATIVE); URINE UROBILINOGEN NEGATIVE mg/dL (0.2-1.0)
[2018-03-12] MEDS: traZODone HCL 50 MG TABLET (FP) PO SCH (22:11)
[2018-03-12] MEDS: THIAMINE HCL 100 MG TABLET (FP) PO SCH (22:11)
[2018-03-13] MEDS: chlordiazePOXIDE HCL 25 MG CAPSULE PO SCH ×3 (05:48→18:03)
[2018-03-13] MEDS: NICOTINE 21 MG/24 HOURS TOPICAL PATCH TD SCH (10:48)
[2018-03-13] MEDS: PRENATAL VITAMINS W/ FOLIC ACID TABLET (FP) PO SCH (10:48)
--- NOTE | 2018-03-13 14:27 | PN ---
BHS Progress Note (SOAP) Subjective: patient reports doing well w/. meds, denies symptoms Objective: 03/13/18 14:26 wnwd, aaox 3 , nad CBC, BMP 03/12/18 07:20 03/12/18 07:20 Vital Signs Temperature 96.6 F L 03/13/18 11:02 Pulse Rate 83 03/13/18 11:02 Respiratory Rate 18 03/13/18 11:02 Blood Pressure 114/60 03/13/18 11:02 O2 Sat by Pulse Oximetry (%) Assessment: 03/13/18 14:27 alcohol dependence Plan: continue taper f/up w/ pcp for all medical issues
[2018-03-13] MEDS: THIAMINE HCL 100 MG TABLET (FP) PO SCH (22:20)
[2018-03-13] MEDS: chlordiazePOXIDE 5 MG CAPSULE PO SCH (22:20)
[2018-03-13] MEDS: traZODone HCL 50 MG TABLET (FP) PO SCH (22:20)
[2018-03-13] MEDS: MELATONIN 5 MG TABLETS PO PRN (22:20)
[2018-03-14] MEDS: chlordiazePOXIDE 5 MG CAPSULE PO SCH ×3 (05:59→17:35)
[2018-03-14] MEDS: PRENATAL VITAMINS W/ FOLIC ACID TABLET (FP) PO SCH (10:33)
[2018-03-14] MEDS: NICOTINE 21 MG/24 HOURS TOPICAL PATCH TD SCH (10:34)
--- NOTE | 2018-03-14 17:29 | PN ---
BHS Progress Note (SOAP) Subjective: Tingling in hands, interrupted sleep Objective: 03/14/18 17:28 Last Vital Signs Temp Pulse Resp BP Pulse Ox 98.2 F 58 L 18 110/74 03/14/18 14:19 03/14/18 14:19 03/14/18 14:19 03/14/18 14:19 Laboratory Tests 03/12/18 03/12/18 03/12/18 07:20 07:20 07:20 WBC 3.2 L RBC 4.65 Hgb 11.7 Hct 37.9 MCV 81.7 MCH 25.2 L MCHC 30.8 L RDW 15.0 Plt Count 83 L D MPV 8.3 Sodium 144 Potassium 3.5 Chloride 107 Carbon Dioxide 27 Anion Gap 10 BUN 21 H Creatinine 1.1 Creat Clearance w eGFR > 60 Random Glucose 93 Calcium 8.2 L Total Bilirubin 0.8 AST 28 ALT 34 Alkaline Phosphatase 106 Total Protein 6.0 L Albumin 3.3 L Urine Color Urine Appearance Urine pH Ur Specific [place] Urine Protein Urine Glucose (UA) Urine Ketones Urine Blood Urine Nitrite Urine Bilirubin Urine Urobilinogen Ur Leukocyte Esterase RPR Titer Nonreactive 03/12/18 13:00 WBC RBC Hgb Hct MCV MCH MCHC RDW Plt Count MPV Sodium Potassium Chloride Carbon Dioxide Anion Gap BUN Creatinine Creat Clearance w eGFR Random Glucose Calcium Total Bilirubin AST ALT Alkaline Phosphatase Total Protein Albumin Urine Color Yellow Urine Appearance Clear Urine pH 6.0 Ur Specific [place] 1.017 Urine Protein Negative Urine Glucose (UA) Negative Urine Ketones Negative Urine Blood Negative Urine Nitrite Negative Urine Bilirubin Negative Urine Urobilinogen Negative Ur Leukocyte Esterase Negative RPR Titer Labs reviewed Assessment: 03/14/18 17:29 Withdrawal symptoms Plan: Continue detox
[2018-03-14] MEDS: THIAMINE HCL 100 MG TABLET (FP) PO SCH (22:12)
[2018-03-14] MEDS: chlordiazePOXIDE HCL 10 MG CAPSULE PO SCH (22:12)
[2018-03-14] MEDS: traZODone HCL 50 MG TABLET (FP) PO SCH (22:12)
[2018-03-14] MEDS: MELATONIN 5 MG TABLETS PO PRN (22:13)
[2018-03-15] MEDS: chlordiazePOXIDE HCL 10 MG CAPSULE PO SCH ×2 (05:56→11:27)
[2018-03-15 09:23] VITALS: BP 99/56; PULSE 75; TEMP 98.2
[2018-03-15] MEDS: NICOTINE 21 MG/24 HOURS TOPICAL PATCH TD SCH (10:35)
[2018-03-15] MEDS: PRENATAL VITAMINS W/ FOLIC ACID TABLET (FP) PO SCH (10:35)
--- NOTE | 2018-03-15 14:35 | PN ---
S Progress Note (SOAP) Subjective: denies any complaints Objective: 03/15/18 14:30 A & O x 3 walking about steadily on the unit Vital Signs Temperature 98.2 F 03/15/18 09:22 Pulse Rate 75 03/15/18 09:22 Respiratory Rate 18 03/15/18 09:22 Blood Pressure 99/56 03/15/18 09:22 O2 Sat by Pulse Oximetry (%) Assessment: 03/15/18 14:35 detox completed Plan: for discharge
--- NOTE | 2018-03-15 14:39 | DS ---
[facility] Detox Discharge Summary Admission Date: 03/11/18 Discharge Date: 03/15/18 - History Additional Comments: pt for discharge from detox To continue aftercare at [facility] rehab Pertinent Past History: HIV HTN Arthritis Hep c Chronic back pain - Physical Exam Results Vital Signs: Vital Signs Temperature 98.2 F 03/15/18 09:22 Pulse Rate 75 03/15/18 09:22 Respiratory Rate 18 03/15/18 09:22 Blood Pressure 99/56 03/15/18 09:22 O2 Sat by Pulse Oximetry (%) Pertinent Admission Physical Exam Findings: withdrawal sx - Treatment Hospital Course: Detox Protocol Followed, Detoxed Safely, Responded well, Discharged Condition Good, Rehab Referral Accepted Patient has Accepted a Rehab Referral to: [facility] Rehab - Medication Discharge Medications: Ambulatory Orders Gabapentin [Neurontin] 600 mg PO TID 12/17/16 Atazanavir [Reyataz -] 300 mg PO DAILY #30 mg 01/14/17 Emtricitabine/Tenofovir [Truvada -] 1 tab PO DAILY #30 tablet 01/14/17 Ibuprofen 800 mg PO Q8H PRN #30 mg 01/14/17 Ritonavir [Norvir -] 100 mg PO DAILY #30 mg 01/14/17 Acamprosate Calcium [Campral -] 666 mg PO TID #180 tab 01/16/17 Gabapentin [Neurontin -] 600 mg PO TID #90 tab 01/16/17 Quetiapine Fumarate [Seroquel -] 100 mg PO HS #30 tablet 01/16/17 Sertraline HCl [Zoloft -] 100 mg PO DAILY #30 tablet 01/16/17 Albuterol Sulfate Inhaler - [Ventolin HFA Inhaler -] 2 puff IH Q4H PRN #1 inhaler 05/16/17 - Diagnosis (1) Alcohol dependence with uncomplicated withdrawal Status: Acute (2) Chronic back pain Status: Acute Qualifiers: Back pain location: back pain in unspecified location Back pain laterality : unspecified Qualified Code(s): M54.9 - Dorsalgia, unspecified; G89.29 - Other chronic pain (3) Opioid dependence with withdrawal Status: Acute (4) Arthritis Status: Chronic (5) Bronchial asthma Status: Chronic Qualifiers: Asthma severity: mild Asthma persistence: unspecified Asthma complication type: uncomplicated Qualified Code(s): J45.909 - Unspecified asthma, uncomplicated (6) GERD (gastroesophageal reflux disease) Status: Chronic Qualifiers: Esophagitis presence: without esophagitis Qualified Code(s): K21.9 - Gastro -esophageal reflux disease without esophagitis (7) HIV (human immunodeficiency virus infection) Status: Chronic (8) HTN (hypertension), benign Status: Chronic (9) Hepatitis C Status: Chronic - AMA Did Patient Leave Against Medical Advice: No
== END 2018-03-15 13:55 | disposition other institution (70) | DRG 773 ==
LOC: YASAS 12:46 → Y3N 16:48
PROC: HZ2ZZZZ Detoxification Services for Substance Abuse Treatment (ICD-10-PCS; principal; 2018-03-11)
DX: F11.23 Opioid dependence with withdrawal (principal); F10.230 Alcohol dependence with withdrawal, uncomplicated; F12.20 Cannabis dependence, uncomplicated; F17.210 Nicotine dependence, cigarettes, uncomplicated; F19.24 Other psychoactive substance dependence with psychoactive substance-induced mood disorder; Z21 Asymptomatic human immunodeficiency virus [HIV] infection status; G47.00 Insomnia, unspecified; I10 Essential (primary) hypertension; J45.909 Unspecified asthma, uncomplicated; K21.9 Gastro-esophageal reflux disease without esophagitis; B18.2 Chronic viral hepatitis C; M12.9 Arthropathy, unspecified; M54.9 Dorsalgia, unspecified; G89.29 Other chronic pain; R19.7 Diarrhea, unspecified; R26.89 Other abnormalities of gait and mobility; Z99.89 Dependence on other enabling machines and devices
CPT/HCPCS: 36415; 80053; 81003; 85027; 86593; 93005; 93010

== ENCOUNTER 2018-03-15 14:03 | Inpatient (IN) | payer OTHER ==
[2018-03-15] MEDS ORDERED: MAG HYDROX/AL HYDROX/SIMETH 30 ML UNIT-DOSE CUP PO PRN (17:42)
[2018-03-15] MEDS ORDERED: MAGNESIUM CITRATE 300 ML BOTTLE PO PRN (17:42)
[2018-03-15] MEDS ORDERED: NICOTINE POLACRILEX 4 MG GUM BUC PRN (17:42)
[2018-03-15] MEDS ORDERED: MENTHOL/PHENOL 1 EACH UD MM PRN (17:42)
[2018-03-15] MEDS ORDERED: P-EPHED 60MG/TRIPROLIDI 2.5MG TABLET PO PRN (17:42)
[2018-03-15] MEDS ORDERED: guaiFENesin/D-METHORPHAN HB 10 ML UNIT-DOSE CUPS PO PRN (17:42)
[2018-03-15] MEDS ORDERED: MAGNESIUM HYDROX 2400MG/30ML ORAL SUSPENSION 30 ML CUP PO PRN (17:42)
[2018-03-15] MEDS ORDERED: ALBUTEROL SO4 0.083% IH SOL 2.5 MG/3 ML VIAL.NEB. NEB PRN (17:43)
--- NOTE | 2018-03-15 17:44 | HP ---
[facility] Rehab Assess/Revision - Admission History Admitted to Rehab from: [facility] [place] Date of Admission to Rehab: 03/15/18 - Vital signs Vital Signs: Vital Signs Period Temp Pulse Resp BP Sys/[place] Pulse Ox Last 24 Hr 98.0 F 95 18 118/73 - Findings Detox History & Physical reviewed: Yes Concur with findings: Yes Inpatient Rehab Admission - Initial Determination Are CD services needed?: Yes Free of communicable disease: Yes Not in need of hospitalization: Yes - Rehab Admission Criteria Previous failed treatment: Yes Poor recovery environment: Yes Comorbidities: Yes Lacks judgement: Yes Patient is meeting Inpatient Rehab admission criteria:: Yes
[2018-03-15] MEDS: THIAMINE HCL 100 MG TABLET (FP) PO SCH (21:54)
[2018-03-15] MEDS: MELATONIN 5 MG TABLETS PO PRN (21:54)
[2018-03-16] MEDS: IBUPROFEN 400 MG TABLET (FP) PO PRN (10:47)
[2018-03-16] MEDS: hydrOXYzine PAMOATE 50 MG CAPSULE (FP) PO PRN (10:47)
[2018-03-16] MEDS: PRENATAL VITAMINS W/ FOLIC ACID TABLET (FP) PO SCH (10:47)
[2018-03-16] MEDS: NICOTINE 21 MG/24 HOURS TOPICAL PATCH TD SCH (10:49)
[2018-03-16] MEDS ORDERED: FLU VACCINE QUAD 60 MCG/0.5 ML (MDV 18-19) IM ONE (12:00)
--- NOTE | 2018-03-16 13:11 | PN ---
S Progress Note Note: Vital Signs Temperature 97.8 F 03/16/18 07:05 Pulse Rate 81 03/16/18 07:05 Respiratory Rate 16 03/16/18 07:05 Blood Pressure 144/84 03/16/18 07:05 O2 Sat by Pulse Oximetry (%) Patient c/o of insomnia and chronic back pain. Patient currently uses a brace and walker to get around. Reports lack of sleep worsen back pain in AM. AOx3 no distress no adventitious breath sounds skin intact cull rom ambulating in unit with walker, + back pain chronic back pain insomnia Plan: follow up with psych re: sinomnia lidocaine patch and ibuprofen PRN for back pain increase fluids ambulate continue to monitor
--- NOTE | 2018-03-16 15:33 | HP ---
Psychiatrist Admission - Data Date of interview: 03/16/18 Admission source: [facility] Identifying data: Patient is a 57 year old male, without children, unemployed, domiciled, and is supported by [facility]. This is one of multiple admissions for patient. Pt. admitted to for alcohol, cocaine, marijuana and opiate dependence. Medical History: Patient ambulates with a rolling walker.Medical co-morbidities are consistent with : HIV infection sice 1989 (on ART medications),GERD, bronchial asthma,hypertension,hepatitis C,chronic back pain,arthritis of both knees,past surgeries (lithotripsy,strabismus in childhood,back). Psychiatric History: Patient's first psychiatric contact was at 8-9 years of age at [facility] for behavior dysregulation ( banging head on wall, throwing chairs, restless behavior). He is uable to recall medications he was prescribed. After discharge from [place] Mr. Barahona continued treatment at [place] outpatient [facility]. Reports being diagnosed with schizophrenia and ADHD as an adolescent. Patient unable to recall psychiatric hospitalizations as an adult but as per records patient has been admitted to [facility], and [facility]. Outpatient psychiatrc services was provided at the [facility]. Mr. Barahona reports nonadherence to outpatient care due to susbtance abuse. Reports last seeing his psychiatrist several months ago. As per pharmacy claims the most recent prescription of trazodone 50mg was sent to patient's pharmacy on 12/05/2017. Zoloft 50mg was electronically sent on 10/12/17. Pt. reports one suicide attempt last year via overdose. Pt. currently reports feeling sad and homeless and is c/o difficulty sleeping. Pt. currently denies suicidal and homicidal ideation. Physical/Sexual Abuse/Trauma History: denies. Vital Signs: Vital Signs - 24 hr 03/16/18 07:05 Temperature 97.8 F Pulse Rate 81 Respiratory 16 Rate Blood Pressure 144/84 Allergies/Adverse Reactions: Allergies Allergy/AdvReac Type Severity Reaction Status Date / Time No Known Allergies Allergy Verified 03/11/18 17:11 Date of last physical exam: 03/11/18 Concur with the findings of this exam: Yes - Substance Abuse/Tx History Hx Alcohol Use: Yes (one gallon of vodka daily) Hx Substance Use: Yes (Cocaine- $40/weekly Heroin- $80/daily Marijuana- once in a while) Substance Use Type: Cocaine Hx Substance Use Treatment: Yes ([facility] December 2016) Mental Status Exam - Mental Status Exam Alert and Oriented to: Time, Place, Person Cognitive Function: Good Patient Appearance: Well Groomed Mood: Euthymic Affect: Mood Congruent Patient Behavior: Fatigued, Appropriate, Cooperative Speech Pattern: Appropriate Voice Loudness: Normal Thought Process: Intact, Goal Oriented Thought Disorder: Not Present Hallucinations: Denies Suicidal Ideation: Denies Homicidal Ideation: Denies Insight/Judgement: Poor Sleep: Poorly Appetite: Fair Muscle strength/Tone: Normal Gait/Station: Other (Patient ambulates with a rolling walker.) Psychiatric Findings - Problem List ([place] 1, 2,3) (1) Insomnia Current Visit: Yes Status: Acute Qualifiers: Insomnia type: unspecified Qualified Code(s): G47.00 - Insomnia, unspecified (2) Alcohol dependence Current Visit: Yes Status: Acute (3) Alcohol-induced mood disorder Current Visit: Yes Status: Acute (4) MDD (major depressive disorder) Current Visit: Yes Status: Chronic Qualifiers: (5) Nicotine dependence Current Visit: Yes Status: Chronic Qualifiers: Nicotine product type: cigarettes - Initial Treatment Plan Initial Treatment Plan: Psychoeducation provided. Rehab in progress. Will order zoloft 50mg + Trazodone 50mg qhs. Benefits and side effects discussed. Patient made aware of the risk of priapism when accepting trazodone. Verbal consent given.
[2018-03-16] MEDS: THIAMINE HCL 100 MG TABLET (FP) PO SCH (21:50)
[2018-03-16] MEDS: traZODone HCL 50 MG TABLET (FP) PO SCH (21:52)
[2018-03-16] MEDS: METHYL SALICYLATE/MENTHOL OINT 30 GM TUBE TP SCH (21:52)
[2018-03-16] MEDS: MELATONIN 5 MG TABLETS PO PRN (21:52)
[2018-03-17] MEDS: PRENATAL VITAMINS W/ FOLIC ACID TABLET (FP) PO SCH (10:53)
[2018-03-17] MEDS: SERTRALINE HCL 50 MG TABLET (FP) PO SCH (10:53)
[2018-03-17] MEDS: METHYL SALICYLATE/MENTHOL OINT 30 GM TUBE TP SCH ×2 (10:53→21:45)
[2018-03-17] MEDS: NICOTINE 21 MG/24 HOURS TOPICAL PATCH TD SCH (10:54)
[2018-03-17] MEDS: IBUPROFEN 400 MG TABLET (FP) PO PRN (18:58)
[2018-03-17] MEDS: traZODone HCL 50 MG TABLET (FP) PO SCH (21:43)
[2018-03-17] MEDS: THIAMINE HCL 100 MG TABLET (FP) PO SCH (21:43)
[2018-03-17] MEDS: MELATONIN 5 MG TABLETS PO PRN (21:43)
[2018-03-18] MEDS: PRENATAL VITAMINS W/ FOLIC ACID TABLET (FP) PO SCH (10:45)
[2018-03-18] MEDS: NICOTINE 21 MG/24 HOURS TOPICAL PATCH TD SCH (10:45)
[2018-03-18] MEDS: METHYL SALICYLATE/MENTHOL OINT 30 GM TUBE TP SCH ×2 (10:45→21:50)
[2018-03-18] MEDS: SERTRALINE HCL 50 MG TABLET (FP) PO SCH (10:45)
[2018-03-18] MEDS: traZODone HCL 50 MG TABLET (FP) PO SCH (21:47)
[2018-03-18] MEDS: THIAMINE HCL 100 MG TABLET (FP) PO SCH (21:47)
[2018-03-18] MEDS: ALBUTEROL SO4 8 GM HFA INHALER IH PRN (21:49)
[2018-03-18] MEDS: MELATONIN 5 MG TABLETS PO PRN (21:50)
[2018-03-19] MEDS: NICOTINE 21 MG/24 HOURS TOPICAL PATCH TD SCH (10:40)
[2018-03-19] MEDS: METHYL SALICYLATE/MENTHOL OINT 30 GM TUBE TP SCH ×2 (10:41→22:00)
[2018-03-19] MEDS: PRENATAL VITAMINS W/ FOLIC ACID TABLET (FP) PO SCH (10:41)
[2018-03-19] MEDS: SERTRALINE HCL 50 MG TABLET (FP) PO SCH (10:41)
[2018-03-19] MEDS: ALBUTEROL SO4 8 GM HFA INHALER IH PRN ×2 (10:43→22:01)
[2018-03-19] MEDS: hydrOXYzine PAMOATE 50 MG CAPSULE (FP) PO PRN (17:12)
[2018-03-19] MEDS: PATIENT'S OWN MEDICATION (NON-FORMULARY) (Atazanavir [Reyataz -] 300 MG) PO SCH (18:09)
[2018-03-19] MEDS: PATIENT'S OWN MEDICATION (NON-FORMULARY) (Emtricitabine/Tenofovir [Truvada -] 1 TAB) PO SCH (18:10)
[2018-03-19] MEDS: THIAMINE HCL 100 MG TABLET (FP) PO SCH (21:57)
[2018-03-19] MEDS: traZODone HCL 50 MG TABLET (FP) PO SCH (21:57)
[2018-03-19] MEDS: PATIENT'S OWN MEDICATION (NON-FORMULARY) (Ritonavir [Norvir -] 100 MG) PO SCH (21:58)
[2018-03-19] MEDS: MELATONIN 5 MG TABLETS PO PRN (22:00)
[2018-03-20] MEDS: PATIENT'S OWN MEDICATION (NON-FORMULARY) (Emtricitabine/Tenofovir [Truvada -] 1 TAB) PO SCH (10:32)
[2018-03-20] MEDS: PATIENT'S OWN MEDICATION (NON-FORMULARY) (Ritonavir [Norvir -] 100 MG) PO SCH ×2 (10:32→21:59)
[2018-03-20] MEDS: PATIENT'S OWN MEDICATION (NON-FORMULARY) (Atazanavir [Reyataz -] 300 MG) PO SCH (10:32)
[2018-03-20] MEDS: PRENATAL VITAMINS W/ FOLIC ACID TABLET (FP) PO SCH (10:33)
[2018-03-20] MEDS: SERTRALINE HCL 50 MG TABLET (FP) PO SCH (10:33)
[2018-03-20] MEDS: NICOTINE 21 MG/24 HOURS TOPICAL PATCH TD SCH (10:33)
[2018-03-20] MEDS: METHYL SALICYLATE/MENTHOL OINT 30 GM TUBE TP SCH ×2 (10:33→22:10)
[2018-03-20] MEDS: ALBUTEROL SO4 8 GM HFA INHALER IH PRN (10:34)
[2018-03-20] MEDS: LOPERAMIDE HCL 2 MG CAPSULE PO PRN ×2 (11:49→17:34)
[2018-03-20] MEDS: traZODone HCL 50 MG TABLET (FP) PO SCH (21:58)
[2018-03-20] MEDS: THIAMINE HCL 100 MG TABLET (FP) PO SCH (21:58)
[2018-03-20] MEDS: ACETAMINOPHEN 325 MG TABLET (FP) PO PRN (22:00)
[2018-03-21] MEDS: SERTRALINE HCL 50 MG TABLET (FP) PO SCH (10:37)
[2018-03-21] MEDS: PATIENT'S OWN MEDICATION (NON-FORMULARY) (Ritonavir [Norvir -] 100 MG) PO SCH ×2 (10:38→22:10)
[2018-03-21] MEDS: PATIENT'S OWN MEDICATION (NON-FORMULARY) (Emtricitabine/Tenofovir [Truvada -] 1 TAB) PO SCH (10:39)
[2018-03-21] MEDS: PATIENT'S OWN MEDICATION (NON-FORMULARY) (Atazanavir [Reyataz -] 300 MG) PO SCH (10:39)
[2018-03-21] MEDS: NICOTINE 21 MG/24 HOURS TOPICAL PATCH TD SCH (10:40)
[2018-03-21] MEDS: PRENATAL VITAMINS W/ FOLIC ACID TABLET (FP) PO SCH (10:40)
[2018-03-21] MEDS: METHYL SALICYLATE/MENTHOL OINT 30 GM TUBE TP SCH ×2 (10:40→22:10)
[2018-03-21] MEDS: LOPERAMIDE HCL 2 MG CAPSULE PO PRN (14:05)
[2018-03-21] MEDS: ALBUTEROL SO4 8 GM HFA INHALER IH PRN (15:53)
[2018-03-21] MEDS: traZODone HCL 50 MG TABLET (FP) PO SCH (22:10)
[2018-03-21] MEDS: THIAMINE HCL 100 MG TABLET (FP) PO SCH (22:10)
[2018-03-21] MEDS: MELATONIN 5 MG TABLETS PO PRN (22:11)
[2018-03-22] MEDS: PRENATAL VITAMINS W/ FOLIC ACID TABLET (FP) PO SCH (11:24)
[2018-03-22] MEDS: SERTRALINE HCL 50 MG TABLET (FP) PO SCH (11:24)
[2018-03-22] MEDS: NICOTINE 21 MG/24 HOURS TOPICAL PATCH TD SCH (11:24)
[2018-03-22] MEDS: PATIENT'S OWN MEDICATION (NON-FORMULARY) (Ritonavir [Norvir -] 100 MG) PO SCH ×2 (11:25→22:10)
[2018-03-22] MEDS: METHYL SALICYLATE/MENTHOL OINT 30 GM TUBE TP SCH ×2 (11:26→22:12)
[2018-03-22] MEDS: PATIENT'S OWN MEDICATION (NON-FORMULARY) (Atazanavir [Reyataz -] 300 MG) PO SCH (11:26)
[2018-03-22] MEDS: PATIENT'S OWN MEDICATION (NON-FORMULARY) (Emtricitabine/Tenofovir [Truvada -] 1 TAB) PO SCH (11:27)
[2018-03-22] MEDS: ACETAMINOPHEN 325 MG TABLET (FP) PO PRN (11:28)
[2018-03-22] MEDS: ALBUTEROL SO4 8 GM HFA INHALER IH PRN ×2 (11:29→22:10)
[2018-03-22] MEDS: IBUPROFEN 400 MG TABLET (FP) PO PRN ×2 (14:44→22:11)
[2018-03-22] MEDS: MELATONIN 5 MG TABLETS PO PRN (22:10)
[2018-03-22] MEDS: THIAMINE HCL 100 MG TABLET (FP) PO SCH (22:10)
[2018-03-22] MEDS: traZODone HCL 50 MG TABLET (FP) PO SCH (22:10)
--- NOTE | 2018-03-23 07:39 | PN ---
Psychiatric Progress Note Vital Signs: Vital Signs Period Temp Pulse Resp BP Sys/Bolivar Pulse Ox Last 24 Hr 97.8 F 86 16-18 111/69 Date of Session: 03/23/18 Chief Complaint:: Insomnia HPI: Patient addressing Alcohol Dependence comorbid with Nicotine Dependence, MDD, Substance-Induced Mood Disorder and Substance-Induced Sleep Disorder ROS: Asthma, GERD, HTN, Hep C, HIV, Chronic back pain, Arthritis both knees Current Medications: Active Medications Generic Name Dose Route Start Last Admin Trade Name Freq PRN Reason Stop Dose Admin Acetaminophen 650 mg 03/15/18 17:42 03/22/18 11:28 Tylenol - PO 650 mg Q4H PRN Administration FEVER Al Hydroxide/Mg Hydroxide 30 ml 03/15/18 17:42 03/16/18 20:08 Mylanta Oral Suspension - PO 30 ml Q6H PRN Administration DYSPEPSIA Albuterol Sulfate 1 amp 03/15/18 17:43 Ventolin 0.083% Nebulizer Soln - NEB Q4H PRN SHORT OF BREATH/WHEEZING Albuterol Sulfate 2 puff 03/18/18 13:40 03/22/18 22:10 Ventolin Hfa Inhaler - IH 2 puff Q4H PRN Administration SHORT OF BREATH/WHEEZING Eucalyptus/Menthol/Phenol/Sorbitol 1 each 03/15/18 17:42 Cepastat Lozenge - MM Q4H PRN SORE THROAT Guaifenesin 10 ml 03/15/18 17:42 Robitussin Dm - PO Q6H PRN COUGH Hydroxyzine Pamoate 50 mg 03/15/18 17:42 03/19/18 17:12 Vistaril - PO 50 mg Q4H PRN Administration AGITATION Ibuprofen 400 mg 03/15/18 17:42 03/22/18 22:11 Motrin - PO 400 mg Q6H PRN Administration Pain Level 4-6 Loperamide HCl 4 mg 03/15/18 17:42 03/21/18 14:05 Imodium - PO 4 mg Q6H PRN Administration DIARRHEA Magnesium Citrate 300 ml 03/15/18 17:42 Citroma - PO Q48H PRN CONSTIPATION Magnesium Hydroxide 30 ml 03/15/18 17:42 Milk Of Magnesia - PO DAILY PRN CONSTIPATION Melatonin 5 mg 03/15/18 22:00 03/22/18 22:10 Melatonin PO 5 mg HS PRN Administration INSOMNIA Methyl Salicylate 1 applic 03/16/18 22:00 03/22/18 22:12 Magno-Torres - TP 1 applic BID RAINER Administration Nicotine 21 mg 03/16/18 10:00 03/22/18 11:24 Nicoderm Patch - TD 21 mg DAILY RAINER Administration Nicotine Polacrilex 4 mg 03/15/18 17:42 Nicorette Gum - BUC Q2H PRN NICOTINE REPLACEMENT RX Non-Formulary Medication 300 mg 03/19/18 18:00 03/22/18 11:26 Atazanavir [Reyataz -] PO 300 mg DAILY RAINER Administration Non-Formulary Medication 1 tab 03/19/18 18:00 03/22/18 11:27 Emtricitabine/Tenofovir [Truvada -] PO 1 tab DAILY RAINER Administration Non-Formulary Medication 100 mg 03/19/18 22:00 03/22/18 22:10 Ritonavir [Norvir -] PO 100 mg BID RAINER Administration Multivit/Folic Acid/Iron 1 tab 03/16/18 10:00 03/22/18 11:24 Vitamins (Sjr) - PO 1 tab DAILY RAINER Administration Pseudoephedrine/Triprolidine 1 combo 03/15/18 17:42 Actifed - PO TID PRN NASAL CONGESTION Sertraline HCl 50 mg 03/17/18 10:00 03/22/18 11:24 Zoloft - PO 50 mg DAILY RAINER Administration Thiamine HCl 100 mg 03/15/18 22:00 03/22/18 22:10 Vitamin B1 - PO 100 mg HS RAINER Administration Trazodone HCl 100 mg 03/23/18 22:00 Desyrel - PO HS RAINER Current Side Effect: No Lab tests ordered: Yes Lab tests reviewed: Yes Provider note:: Patient reports difficulty to sleep despite taking Trazadone 50 mg po HS. Requests that dosage of medication be increased to provide better slep Total face to face time:: 15 Mental Status Exam - Mental Status Exam Alert and Oriented to: Time, Place, Person Cognitive Function: Fair Patient Appearance: Well Groomed Mood: Hopeful, Euthymic Affect: Appropriate Patient Behavior: Cooperative Speech Pattern: Clear Voice Loudness: Normal Thought Process: Intact, Goal Oriented Thought Disorder: Not Present Hallucinations: Denies Suicidal Ideation: Denies Homicidal Ideation: Denies Insight/Judgement: Fair Sleep: Poorly Appetite: Fair Muscle strength/Tone: Normal Gait/Station: Other (Uses a rolling walker as ambulatory aid) Psychiatric Treatment Plan - Problem List (1) Alcohol dependence Current Visit: Yes (2) Nicotine dependence Current Visit: Yes Qualifiers: Nicotine product type: cigarettes (3) MDD (major depressive disorder) Current Visit: Yes Qualifiers: (4) Alcohol-induced mood disorder Current Visit: Yes (5) Alcohol-induced sleep disorder Current Visit: Yes (6) Chronic back pain Current Visit: Yes Qualifiers: Back pain location: low back pain Back pain laterality: bilateral Sciatica presence: without sciatica Qualified Code(s): M54.5 - Low back pain; G89.29 - Other chronic pain (7) Arthritis Current Visit: No (8) GERD (gastroesophageal reflux disease) Current Visit: No Qualifiers: Esophagitis presence: without esophagitis Qualified Code(s): K21.9 - Gastro -esophageal reflux disease without esophagitis (9) HTN (hypertension), benign Current Visit: No (10) Hepatitis C Current Visit: No (11) Previous back surgery Current Visit: No (12) Use of cane as ambulatory aid Current Visit: No (13) HIV (human immunodeficiency virus infection) Current Visit: No (14) Bronchial asthma Current Visit: No Qualifiers: Asthma severity: mild Asthma persistence: unspecified Asthma complication type: uncomplicated Qualified Code(s): J45.909 - Unspecified asthma, uncomplicated Initial treatment plan: 1) Discontinue Trazadone as previously order. 2) Start Trazadone 100 mg po HS. 3) Monitor progress
[2018-03-23] MEDS: NICOTINE 21 MG/24 HOURS TOPICAL PATCH TD SCH (11:08)
[2018-03-23] MEDS: PRENATAL VITAMINS W/ FOLIC ACID TABLET (FP) PO SCH (11:08)
[2018-03-23] MEDS: SERTRALINE HCL 50 MG TABLET (FP) PO SCH (11:09)
[2018-03-23] MEDS: IBUPROFEN 400 MG TABLET (FP) PO PRN ×2 (11:10→21:40)
[2018-03-23] MEDS: ALBUTEROL SO4 8 GM HFA INHALER IH PRN ×2 (11:13→21:41)
[2018-03-23] MEDS: PATIENT'S OWN MEDICATION (NON-FORMULARY) (Atazanavir [Reyataz -] 300 MG) PO SCH (11:13)
[2018-03-23] MEDS: PATIENT'S OWN MEDICATION (NON-FORMULARY) (Emtricitabine/Tenofovir [Truvada -] 1 TAB) PO SCH (11:13)
[2018-03-23] MEDS: PATIENT'S OWN MEDICATION (NON-FORMULARY) (Ritonavir [Norvir -] 100 MG) PO SCH ×2 (11:13→21:38)
[2018-03-23] MEDS: METHYL SALICYLATE/MENTHOL OINT 30 GM TUBE TP SCH ×2 (11:13→21:40)
[2018-03-23] MEDS ORDERED: SULFAMETHOXAZOLE/TRIMETHOPRIM 800MG/160MG D.S. TABLET PO ONE (12:40)
[2018-03-23] MEDS: BACITRACIN 0.9 GM PACKET TP SCH (13:39)
--- NOTE | 2018-03-23 15:44 | PN ---
S Progress Note Note: PT C/O RED PAINFUL AND OOZING BUMP BEHIND LEFT EAR X 4-5 DAYS. REPORTS PUS/ BLOOD COMING OUT OF AREA YESTERDAY. EAR:LEFT EAR WITH REDNESS AND SWELLING BEHIND EAR. SWELLING WITH AN EXIT OPENING. OTHER RED PAPULAR RASH ON HAIRLINE AROUND NECK AREA. PAIN TO TOUCH OF LEFT EARLOBE. IMPRESSION:CELLULITIS/ABSCESS PLAN:BACTRIM DS I TAB PO BID X 7 DAYS BACITRACIN OINTMENT APPLY DIRECTED.
[2018-03-23] MEDS: SULFAMETHOXAZOLE/TRIMETHOPRIM 800MG/160MG D.S. TABLET PO SCH (21:38)
[2018-03-23] MEDS: traZODone HCL 100 MG TABLET (FP) PO SCH (21:38)
[2018-03-23] MEDS: THIAMINE HCL 100 MG TABLET (FP) PO SCH (21:39)
[2018-03-24] MEDS: METHYL SALICYLATE/MENTHOL OINT 30 GM TUBE TP SCH ×2 (10:51→21:34)
[2018-03-24] MEDS: SULFAMETHOXAZOLE/TRIMETHOPRIM 800MG/160MG D.S. TABLET PO SCH ×2 (10:51→21:32)
[2018-03-24] MEDS: PATIENT'S OWN MEDICATION (NON-FORMULARY) (Emtricitabine/Tenofovir [Truvada -] 1 TAB) PO SCH (10:51)
[2018-03-24] MEDS: SERTRALINE HCL 50 MG TABLET (FP) PO SCH (10:51)
[2018-03-24] MEDS: NICOTINE 21 MG/24 HOURS TOPICAL PATCH TD SCH (10:51)
[2018-03-24] MEDS: BACITRACIN 0.9 GM PACKET TP SCH (10:51)
[2018-03-24] MEDS: PRENATAL VITAMINS W/ FOLIC ACID TABLET (FP) PO SCH (10:52)
[2018-03-24] MEDS: PATIENT'S OWN MEDICATION (NON-FORMULARY) (Atazanavir [Reyataz -] 300 MG) PO SCH (10:52)
[2018-03-24] MEDS: IBUPROFEN 400 MG TABLET (FP) PO PRN ×2 (10:54→21:32)
[2018-03-24] MEDS: ALBUTEROL SO4 8 GM HFA INHALER IH PRN ×2 (10:55→21:33)
[2018-03-24] MEDS: PATIENT'S OWN MEDICATION (NON-FORMULARY) (Ritonavir [Norvir -] 100 MG) PO SCH ×2 (10:55→21:32)
[2018-03-24] MEDS: traZODone HCL 100 MG TABLET (FP) PO SCH (21:32)
[2018-03-24] MEDS: MELATONIN 5 MG TABLETS PO PRN (21:34)
[2018-03-24] MEDS: THIAMINE HCL 100 MG TABLET (FP) PO SCH (21:35)
[2018-03-25] MEDS: hydrOXYzine PAMOATE 50 MG CAPSULE (FP) PO PRN (00:48)
[2018-03-25] MEDS: SULFAMETHOXAZOLE/TRIMETHOPRIM 800MG/160MG D.S. TABLET PO SCH ×2 (10:50→21:53)
[2018-03-25] MEDS: BACITRACIN 0.9 GM PACKET TP SCH (10:50)
[2018-03-25] MEDS: SERTRALINE HCL 50 MG TABLET (FP) PO SCH (10:50)
[2018-03-25] MEDS: PATIENT'S OWN MEDICATION (NON-FORMULARY) (Emtricitabine/Tenofovir [Truvada -] 1 TAB) PO SCH (10:51)
[2018-03-25] MEDS: PATIENT'S OWN MEDICATION (NON-FORMULARY) (Ritonavir [Norvir -] 100 MG) PO SCH ×2 (10:52→21:59)
[2018-03-25] MEDS: PRENATAL VITAMINS W/ FOLIC ACID TABLET (FP) PO SCH (10:52)
[2018-03-25] MEDS: IBUPROFEN 400 MG TABLET (FP) PO PRN ×2 (10:54→21:54)
[2018-03-25] MEDS: NICOTINE 21 MG/24 HOURS TOPICAL PATCH TD SCH (10:55)
[2018-03-25] MEDS: METHYL SALICYLATE/MENTHOL OINT 30 GM TUBE TP SCH ×2 (10:55→21:55)
[2018-03-25] MEDS: PATIENT'S OWN MEDICATION (NON-FORMULARY) (Atazanavir [Reyataz -] 300 MG) PO SCH (10:56)
[2018-03-25] MEDS: THIAMINE HCL 100 MG TABLET (FP) PO SCH (21:53)
[2018-03-25] MEDS: traZODone HCL 100 MG TABLET (FP) PO SCH (21:53)
[2018-03-26] MEDS: PATIENT'S OWN MEDICATION (NON-FORMULARY) (Emtricitabine/Tenofovir [Truvada -] 1 TAB) PO SCH (10:39)
[2018-03-26] MEDS: SERTRALINE HCL 50 MG TABLET (FP) PO SCH (10:40)
[2018-03-26] MEDS: SULFAMETHOXAZOLE/TRIMETHOPRIM 800MG/160MG D.S. TABLET PO SCH ×2 (10:40→21:38)
[2018-03-26] MEDS: BACITRACIN 0.9 GM PACKET TP SCH (10:40)
[2018-03-26] MEDS: NICOTINE 21 MG/24 HOURS TOPICAL PATCH TD SCH (10:40)
[2018-03-26] MEDS: PATIENT'S OWN MEDICATION (NON-FORMULARY) (Ritonavir [Norvir -] 100 MG) PO SCH ×2 (10:40→21:38)
[2018-03-26] MEDS: METHYL SALICYLATE/MENTHOL OINT 30 GM TUBE TP SCH ×2 (10:41→21:40)
[2018-03-26] MEDS: PATIENT'S OWN MEDICATION (NON-FORMULARY) (Atazanavir [Reyataz -] 300 MG) PO SCH (10:45)
[2018-03-26] MEDS: PRENATAL VITAMINS W/ FOLIC ACID TABLET (FP) PO SCH (10:46)
[2018-03-26] MEDS: IBUPROFEN 400 MG TABLET (FP) PO PRN ×2 (14:38→21:38)
[2018-03-26] MEDS: MELATONIN 5 MG TABLETS PO PRN (21:38)
[2018-03-26] MEDS: traZODone HCL 100 MG TABLET (FP) PO SCH (21:38)
[2018-03-26] MEDS: THIAMINE HCL 100 MG TABLET (FP) PO SCH (21:40)
[2018-03-26] MEDS: ALBUTEROL SO4 8 GM HFA INHALER IH PRN (21:40)
[2018-03-27] MEDS: hydrOXYzine PAMOATE 50 MG CAPSULE (FP) PO PRN (00:20)
[2018-03-27] MEDS: SERTRALINE HCL 50 MG TABLET (FP) PO SCH (10:41)
[2018-03-27] MEDS: SULFAMETHOXAZOLE/TRIMETHOPRIM 800MG/160MG D.S. TABLET PO SCH ×2 (10:41→22:02)
[2018-03-27] MEDS: ALBUTEROL SO4 8 GM HFA INHALER IH PRN (10:42)
[2018-03-27] MEDS: BACITRACIN 0.9 GM PACKET TP SCH (10:42)
[2018-03-27] MEDS: PRENATAL VITAMINS W/ FOLIC ACID TABLET (FP) PO SCH (10:42)
[2018-03-27] MEDS: METHYL SALICYLATE/MENTHOL OINT 30 GM TUBE TP SCH ×2 (10:42→22:17)
[2018-03-27] MEDS: NICOTINE 21 MG/24 HOURS TOPICAL PATCH TD SCH (10:43)
[2018-03-27] MEDS: PATIENT'S OWN MEDICATION (NON-FORMULARY) (Atazanavir [Reyataz -] 300 MG) PO SCH (10:44)
[2018-03-27] MEDS: PATIENT'S OWN MEDICATION (NON-FORMULARY) (Emtricitabine/Tenofovir [Truvada -] 1 TAB) PO SCH (10:46)
[2018-03-27] MEDS: PATIENT'S OWN MEDICATION (NON-FORMULARY) (Ritonavir [Norvir -] 100 MG) PO SCH ×2 (10:46→22:03)
[2018-03-27] MEDS: IBUPROFEN 400 MG TABLET (FP) PO PRN (10:48)
[2018-03-27] MEDS: traZODone HCL 100 MG TABLET (FP) PO SCH (22:02)
[2018-03-27] MEDS: MELATONIN 5 MG TABLETS PO PRN (22:04)
[2018-03-27] MEDS: THIAMINE HCL 100 MG TABLET (FP) PO SCH (22:17)
[2018-03-28] MEDS: hydrOXYzine PAMOATE 50 MG CAPSULE (FP) PO PRN (00:16)
[2018-03-28] MEDS: PATIENT'S OWN MEDICATION (NON-FORMULARY) (Ritonavir [Norvir -] 100 MG) PO SCH ×2 (10:39→21:34)
[2018-03-28] MEDS: BACITRACIN 0.9 GM PACKET TP SCH (10:39)
[2018-03-28] MEDS: PATIENT'S OWN MEDICATION (NON-FORMULARY) (Atazanavir [Reyataz -] 300 MG) PO SCH (10:39)
[2018-03-28] MEDS: NICOTINE 21 MG/24 HOURS TOPICAL PATCH TD SCH (10:39)
[2018-03-28] MEDS: PATIENT'S OWN MEDICATION (NON-FORMULARY) (Emtricitabine/Tenofovir [Truvada -] 1 TAB) PO SCH (10:40)
[2018-03-28] MEDS: IBUPROFEN 400 MG TABLET (FP) PO PRN ×2 (10:41→21:34)
[2018-03-28] MEDS: SERTRALINE HCL 50 MG TABLET (FP) PO SCH (10:43)
[2018-03-28] MEDS: METHYL SALICYLATE/MENTHOL OINT 30 GM TUBE TP SCH ×2 (10:53→21:35)
[2018-03-28] MEDS: PRENATAL VITAMINS W/ FOLIC ACID TABLET (FP) PO SCH (10:53)
[2018-03-28] MEDS: SULFAMETHOXAZOLE/TRIMETHOPRIM 800MG/160MG D.S. TABLET PO SCH ×2 (10:53→21:33)
[2018-03-28] MEDS: THIAMINE HCL 100 MG TABLET (FP) PO SCH (21:33)
[2018-03-28] MEDS: traZODone HCL 100 MG TABLET (FP) PO SCH (21:33)
[2018-03-28] MEDS: MELATONIN 5 MG TABLETS PO PRN (21:34)
[2018-03-28] MEDS: ALBUTEROL SO4 8 GM HFA INHALER IH PRN (21:35)
[2018-03-29] MEDS: BACITRACIN 0.9 GM PACKET TP SCH (10:26)
[2018-03-29] MEDS: SULFAMETHOXAZOLE/TRIMETHOPRIM 800MG/160MG D.S. TABLET PO SCH ×2 (10:26→21:28)
[2018-03-29] MEDS: PRENATAL VITAMINS W/ FOLIC ACID TABLET (FP) PO SCH (10:26)
[2018-03-29] MEDS: SERTRALINE HCL 50 MG TABLET (FP) PO SCH (10:26)
[2018-03-29] MEDS: NICOTINE 21 MG/24 HOURS TOPICAL PATCH TD SCH (10:27)
[2018-03-29] MEDS: PATIENT'S OWN MEDICATION (NON-FORMULARY) (Atazanavir [Reyataz -] 300 MG) PO SCH (10:27)
[2018-03-29] MEDS: METHYL SALICYLATE/MENTHOL OINT 30 GM TUBE TP SCH ×2 (10:27→21:29)
[2018-03-29] MEDS: PATIENT'S OWN MEDICATION (NON-FORMULARY) (Emtricitabine/Tenofovir [Truvada -] 1 TAB) PO SCH (10:28)
[2018-03-29] MEDS: PATIENT'S OWN MEDICATION (NON-FORMULARY) (Ritonavir [Norvir -] 100 MG) PO SCH ×2 (10:28→21:28)
[2018-03-29] MEDS: IBUPROFEN 400 MG TABLET (FP) PO PRN (10:29)
[2018-03-29] MEDS: THIAMINE HCL 100 MG TABLET (FP) PO SCH (21:28)
[2018-03-29] MEDS: traZODone HCL 100 MG TABLET (FP) PO SCH (21:28)
[2018-03-29] MEDS: ALBUTEROL SO4 8 GM HFA INHALER IH PRN (21:31)
[2018-03-30] MEDS: IBUPROFEN 400 MG TABLET (FP) PO PRN ×2 (00:34→21:26)
[2018-03-30] MEDS: hydrOXYzine PAMOATE 50 MG CAPSULE (FP) PO PRN (00:37)
[2018-03-30] MEDS: PATIENT'S OWN MEDICATION (NON-FORMULARY) (Atazanavir [Reyataz -] 300 MG) PO SCH (10:11)
[2018-03-30] MEDS: BACITRACIN 0.9 GM PACKET TP SCH (10:11)
[2018-03-30] MEDS: PATIENT'S OWN MEDICATION (NON-FORMULARY) (Ritonavir [Norvir -] 100 MG) PO SCH ×2 (10:11→21:25)
[2018-03-30] MEDS: PATIENT'S OWN MEDICATION (NON-FORMULARY) (Emtricitabine/Tenofovir [Truvada -] 1 TAB) PO SCH (10:11)
[2018-03-30] MEDS: SULFAMETHOXAZOLE/TRIMETHOPRIM 800MG/160MG D.S. TABLET PO SCH ×2 (10:11→21:24)
[2018-03-30] MEDS: SERTRALINE HCL 50 MG TABLET (FP) PO SCH (10:11)
[2018-03-30] MEDS: PRENATAL VITAMINS W/ FOLIC ACID TABLET (FP) PO SCH (10:12)
[2018-03-30] MEDS: NICOTINE 21 MG/24 HOURS TOPICAL PATCH TD SCH (10:12)
[2018-03-30] MEDS: ALBUTEROL SO4 8 GM HFA INHALER IH PRN ×2 (10:14→21:26)
--- NOTE | 2018-03-30 10:31 | PN ---
Psychiatric Progress Note Vital Signs: Vital Signs Period Temp Pulse Resp BP Sys/Bolivar Pulse Ox Last 24 Hr 98.7 F 86 18-18 116/73 Date of Session: 03/30/18 Chief Complaint:: Discharge Note HPI: Patient addressing Alcohol Dependence comorbid with Nicotine Dependence, MDD, Alcohol-Induced Mood Disorder and Alcohol-Induced Sleep Disorder ROS: Asthma, HTN, HIV, Hep C, GERD, Arthritis both knees, Back pain Current Medications: Active Medications Generic Name Dose Route Start Last Admin Trade Name Freq PRN Reason Stop Dose Admin Acetaminophen 650 mg 03/15/18 17:42 03/22/18 11:28 Tylenol - PO 650 mg Q4H PRN Administration FEVER Al Hydroxide/Mg Hydroxide 30 ml 03/15/18 17:42 03/16/18 20:08 Mylanta Oral Suspension - PO 30 ml Q6H PRN Administration DYSPEPSIA Albuterol Sulfate 1 amp 03/15/18 17:43 03/28/18 10:42 Ventolin 0.083% Nebulizer Soln - NEB 1 amp Q4H PRN Administration SHORT OF BREATH/WHEEZING Albuterol Sulfate 2 puff 03/18/18 13:40 03/30/18 10:14 Ventolin Hfa Inhaler - IH 2 puff Q4H PRN Administration SHORT OF BREATH/WHEEZING Bacitracin 0.9 gm 03/23/18 12:45 03/30/18 10:11 Bacitracin - TP 0.9 gm DAILY RAINER Administration Eucalyptus/Menthol/Phenol/Sorbitol 1 each 03/15/18 17:42 Cepastat Lozenge - MM Q4H PRN SORE THROAT Guaifenesin 10 ml 03/15/18 17:42 Robitussin Dm - PO Q6H PRN COUGH Hydroxyzine Pamoate 50 mg 03/15/18 17:42 03/30/18 00:37 Vistaril - PO 50 mg Q4H PRN Administration AGITATION Ibuprofen 400 mg 03/15/18 17:42 03/30/18 00:34 Motrin - PO 400 mg Q6H PRN Administration Pain Level 4-6 Loperamide HCl 4 mg 03/15/18 17:42 03/21/18 14:05 Imodium - PO 4 mg Q6H PRN Administration DIARRHEA Magnesium Citrate 300 ml 03/15/18 17:42 Citroma - PO Q48H PRN CONSTIPATION Magnesium Hydroxide 30 ml 03/15/18 17:42 Milk Of Magnesia - PO DAILY PRN CONSTIPATION Melatonin 5 mg 03/15/18 22:00 03/28/18 21:34 Melatonin PO 5 mg HS PRN Administration INSOMNIA Methyl Salicylate 1 applic 03/16/18 22:00 03/29/18 21:29 Magno-Torres - TP 1 applic BID RAINER Administration Nicotine 21 mg 03/16/18 10:00 03/30/18 10:12 Nicoderm Patch - TD 21 mg DAILY RAINER Administration Nicotine Polacrilex 4 mg 03/15/18 17:42 Nicorette Gum - BUC Q2H PRN NICOTINE REPLACEMENT RX Non-Formulary Medication 300 mg 03/19/18 18:00 03/30/18 10:11 Atazanavir [Reyataz -] PO 300 mg DAILY RAINER Administration Non-Formulary Medication 1 tab 03/19/18 18:00 03/30/18 10:11 Emtricitabine/Tenofovir [Truvada -] PO 1 tab DAILY RAINER Administration Non-Formulary Medication 100 mg 03/19/18 22:00 03/30/18 10:11 Ritonavir [Norvir -] PO 100 mg BID RAINER Administration Multivit/Folic Acid/Iron 1 tab 03/16/18 10:00 03/30/18 10:12 Vitamins (Sjr) - PO 1 tab DAILY RAINER Administration Pseudoephedrine/Triprolidine 1 combo 03/15/18 17:42 Actifed - PO TID PRN NASAL CONGESTION Sertraline HCl 50 mg 03/17/18 10:00 03/30/18 10:11 Zoloft - PO 50 mg DAILY RAINER Administration Thiamine HCl 100 mg 03/15/18 22:00 03/29/18 21:28 Vitamin B1 - PO 100 mg HS RAINER Administration Trazodone HCl 100 mg 03/23/18 22:00 03/29/18 21:28 Desyrel - PO 100 mg HS RAINER Administration Trimethoprim/Sulfamethoxazole 1 each 03/23/18 22:00 03/30/18 10:11 Bactrim Ds - PO 1 each BID RAINER Administration Current Side Effect: No Lab tests ordered: Yes Lab tests reviewed: Yes Provider note:: Patient will complete this program on 03/31/18. He has met his treatment goals and will continue to address his issues in outpatient treatment at [facility]. Told database report writer that from his participation in this program, he has learned the importance of surrounding himself with a sober support network in order to maintain abstinence. He responded well to Zoloft 50 mg po daily and Trazadone 100 mg po HS. Scripts for 30 days supply of these medications will be electronically transmitted to [facility] at [address] [place] [address]. He is stable for discharge on 03/31/18 Total face to face time:: 35 Mental Status Exam - Mental Status Exam Alert and Oriented to: Time, Place, Person Cognitive Function: Fair Patient Appearance: Well Groomed Mood: Hopeful, Euthymic Affect: Appropriate Patient Behavior: Cooperative Speech Pattern: Clear Voice Loudness: Normal Thought Process: Intact Thought Disorder: Not Present Hallucinations: Denies Suicidal Ideation: Denies Homicidal Ideation: Denies Insight/Judgement: Fair Sleep: Fair Appetite: Good Muscle strength/Tone: Normal Gait/Station: Other (Uses a rolling walker as ambulatory aid) Psychiatric Treatment Plan - Problem List (1) Alcohol dependence Current Visit: Yes (2) Nicotine dependence Current Visit: Yes Qualifiers: Nicotine product type: cigarettes (3) MDD (major depressive disorder) Current Visit: Yes Qualifiers: (4) Alcohol-induced mood disorder Current Visit: Yes (5) Alcohol-induced sleep disorder Current Visit: Yes (6) Chronic back pain Current Visit: Yes Qualifiers: Back pain location: low back pain Back pain laterality: bilateral Sciatica presence: without sciatica Qualified Code(s): M54.5 - Low back pain; G89.29 - Other chronic pain (7) Arthritis Current Visit: No (8) GERD (gastroesophageal reflux disease) Current Visit: No Qualifiers: Esophagitis presence: without esophagitis Qualified Code(s): K21.9 - Gastro -esophageal reflux disease without esophagitis (9) HTN (hypertension), benign Current Visit: No (10) Hepatitis C Current Visit: No (11) Previous back surgery Current Visit: No (12) Use of cane as ambulatory aid Current Visit: No (13) HIV (human immunodeficiency virus infection) Current Visit: No (14) Bronchial asthma Current Visit: No Qualifiers: Asthma severity: mild Asthma persistence: unspecified Asthma complication type: uncomplicated Qualified Code(s): J45.909 - Unspecified asthma, uncomplicated Initial treatment plan: Patient is discharged tomorrow and referred to [facility] for outpatient treatment
[2018-03-30] MEDS: METHYL SALICYLATE/MENTHOL OINT 30 GM TUBE TP SCH ×2 (11:33→21:26)
--- NOTE | 2018-03-30 15:58 | PN ---
AIYANA Progress Note Note: PT REPORTS HE HAS PRIMARY CARE AT [facility] WITH DR. KRISTIE DOSHI AND WILL FOLLOW UP WITH PMD IN 1-2 WEEKS AFTER DISCHARGE FROM REHAB TOMORROW. Vital Signs - 24 hr 03/30/18 03/30/18 03:30 07:14 Temperature 98.7 F Pulse Rate 86 Respiratory 18 18 Rate Blood Pressure 116/73
[2018-03-30] MEDS: traZODone HCL 100 MG TABLET (FP) PO SCH (21:24)
[2018-03-30] MEDS: THIAMINE HCL 100 MG TABLET (FP) PO SCH (21:24)
[2018-03-30] MEDS: MELATONIN 5 MG TABLETS PO PRN (21:25)
[2018-03-31 06:50] VITALS: BP 128/70; PULSE 76; TEMP 98
[2018-03-31] MEDS: PATIENT'S OWN MEDICATION (NON-FORMULARY) (Atazanavir [Reyataz -] 300 MG) PO SCH (09:50)
[2018-03-31] MEDS: PATIENT'S OWN MEDICATION (NON-FORMULARY) (Emtricitabine/Tenofovir [Truvada -] 1 TAB) PO SCH (09:50)
[2018-03-31] MEDS: PATIENT'S OWN MEDICATION (NON-FORMULARY) (Ritonavir [Norvir -] 100 MG) PO SCH (09:50)
[2018-03-31] MEDS: SULFAMETHOXAZOLE/TRIMETHOPRIM 800MG/160MG D.S. TABLET PO SCH (09:51)
[2018-03-31] MEDS: SERTRALINE HCL 50 MG TABLET (FP) PO SCH (09:51)
[2018-03-31] MEDS: BACITRACIN 0.9 GM PACKET TP SCH (09:51)
[2018-03-31] MEDS: PRENATAL VITAMINS W/ FOLIC ACID TABLET (FP) PO SCH (09:51)
[2018-03-31] MEDS: METHYL SALICYLATE/MENTHOL OINT 30 GM TUBE TP SCH (09:51)
[2018-03-31] MEDS: IBUPROFEN 400 MG TABLET (FP) PO PRN (09:54)
[2018-03-31] MEDS: NICOTINE 21 MG/24 HOURS TOPICAL PATCH TD SCH (09:55)
--- NOTE | 2018-03-31 15:01 | PN ---
S Progress Note Note: PT COMPLETED REHAB. DISCHARGED TODAY. REFERRED TO [facility] OUTPATIENT PROGRAM. PT WILL FOLLOW UP WITH HIS PMD DR. KRISTIE DOSHI AT [facility] FOR MEDICAL MANAGEMENT PLANNED.
== END 2018-03-31 10:15 | disposition home or self-care (01) | DRG 772 ==
LOC: YASAS 14:03 → Y5N 14:04
PROVIDERS: ADMIT Psychiatry & Neurology Psychiatry; ATTEND Psychiatry & Neurology Psychiatry
PROC: HZ42ZZZ Group Counseling for Substance Abuse Treatment, Cognitive-Behavioral (ICD-10-PCS; principal; 2018-03-15)
DX: F10.24 Alcohol dependence with alcohol-induced mood disorder (principal); F10.282 Alcohol dependence with alcohol-induced sleep disorder; F17.210 Nicotine dependence, cigarettes, uncomplicated; F33.9 Major depressive disorder, recurrent, unspecified; Z21 Asymptomatic human immunodeficiency virus [HIV] infection status; I10 Essential (primary) hypertension; M54.5 Low back pain; G89.29 Other chronic pain; M13.862 Other specified arthritis, left knee; M13.861 Other specified arthritis, right knee; K21.9 Gastro-esophageal reflux disease without esophagitis; B18.2 Chronic viral hepatitis C; J45.909 Unspecified asthma, uncomplicated; H60.12 Cellulitis of left external ear; H60.02 Abscess of left external ear; R26.2 Difficulty in walking, not elsewhere classified; Z99.89 Dependence on other enabling machines and devices
CPT/HCPCS: 90688; 94640; G0008

== ENCOUNTER 2020-10-24 11:34 | Inpatient (IN) | payer OTHER ==
[2020-10-24 13:24] VITALS: BMI 22.1
[2020-10-24] MEDS ORDERED: MENTHOL/PHENOL 1 EACH UD MM PRN (14:52)
[2020-10-24] MEDS ORDERED: BISMUTH SUBSALICYLATE 262 MG/15 ML BTL PO PRN (14:52)
[2020-10-24] MEDS ORDERED: ONDANSETRON *ODT* 4 MG TABLET SL PRN (14:52)
[2020-10-24] MEDS ORDERED: IBUPROFEN 400 MG TABLET (FP) PO PRN (14:52)
[2020-10-24] MEDS ORDERED: METHOCARBAMOL 500 MG TABLET PO PRN (14:52)
[2020-10-24] MEDS ORDERED: MAGNESIUM HYDROX 2400MG/30ML ORAL SUSPENSION 30 ML CUP PO PRN (14:52)
[2020-10-24] MEDS ORDERED: chlordiazePOXIDE HCL 25 MG CAPSULE PO PRN (14:52)
[2020-10-24] MEDS ORDERED: NICOTINE POLACRILEX 2 MG GUM BUC PRN (14:52)
[2020-10-24] MEDS ORDERED: MAGNESIUM CITRATE 300 ML BOTTLE PO PRN (14:52)
[2020-10-24] MEDS ORDERED: ACETAMINOPHEN 325 MG TABLET (FP) PO PRN ×2 (14:52)
[2020-10-24] MEDS ORDERED: ALBUTEROL SO4 HFA INHALER IH PRN (14:58)
[2020-10-24] MEDS ORDERED: ERGOCALCIFEROL (VIT D2) 50,000 UNIT (1.25 MG) CAPSULE PO SCH (15:00)
[2020-10-24 17:01] LABS: HEMATOCRIT 38.3 % (35.4-49); HEMOGLOBIN 12.2 GM/dL (11.7-16.9); MCH 24.9 pg (25.7-33.7); MCHC 31.9 g/dl (32.0-35.9); MEAN PLT VOLUME 8.9 fl (7.5-11.1); PLATELET COUNT 180 K/MM3 (134-434); RBC 4.92 M/mm3 (4.00-5.60); RDW 15.5 % (11.9-15.9)
[2020-10-24 17:09] LABS: ALBUMIN 3.4 g/dl (3.4-5.0); BLOOD UREA NITROGEN 20.1 mg/dL (7-18); CALCIUM 8.2 mg/dL (8.5-10.1)
[2020-10-24 17:11] LABS: BILIRUBIN,TOTAL 0.3 mg/dL (0.2-1); CREATININE 1.2 mg/dL (0.55-1.3); TOT PROT 6.8 g/dl (6.4-8.2)
[2020-10-24] MEDS: NICOTINE 21 MG/24 HOURS TOPICAL PATCH TD SCH (17:25)
[2020-10-24] MEDS: hydrOXYzine PAMOATE 25 MG CAPSULE (FP) PO SCH ×2 (17:26→22:05)
[2020-10-24] MEDS: chlordiazePOXIDE HCL 25 MG CAPSULE PO SCH ×2 (17:26→22:05)
[2020-10-24] MEDS: PRENATAL VITAMINS W/ FOLIC ACID TABLET (FP) PO SCH (17:28)
[2020-10-24] MEDS: BACITRACIN 0.9 GM PACKET TP SCH (17:29)
[2020-10-24] MEDS ORDERED: POTASSIUM CHLORIDE TABS 20 MEQ TABLET.ER (FP) PO ONE (21:02)
[2020-10-24] MEDS ORDERED: THIAMINE HCL 100 MG TABLET (FP) PO SCH (22:00)
[2020-10-24] MEDS: MELATONIN 5 MG TABLETS PO SCH (22:05)
[2020-10-24] MEDS: OLANZapine 5 MG TABLET PO SCH (22:05)
[2020-10-24] MEDS: THIAMINE HCL 100 MG TABLET (FP) PO SCH (22:05)
[2020-10-25] MEDS: hydrOXYzine PAMOATE 25 MG CAPSULE (FP) PO SCH ×5 (05:58→22:16)
[2020-10-25] MEDS: chlordiazePOXIDE HCL 25 MG CAPSULE PO SCH ×4 (05:59→22:16)
[2020-10-25] MEDS: TAMSULOSIN HCL 0.4 MG CAP PO SCH (09:03)
[2020-10-25] MEDS: BICTEGRAV/EMTRICIT/TENOFOV (BIKTARVY) 50-200-25 MG TABLET PO SCH (09:04)
[2020-10-25] MEDS ORDERED: PATIENT'S OWN MEDICATION (NON-FORMULARY) (Thiamine Mononitrate [Vitamin B-1] 100 MG Tablet PO SCH (10:00)
[2020-10-25] MEDS ORDERED: FOLIC ACID 1 MG TABLET (FP) PO SCH (10:00)
[2020-10-25] MEDS ORDERED: DIPHTH,PERTUSS(ACELL),TET 0.5 ML DISP.SYRIN IM ONE (10:00)
[2020-10-25] MEDS: BACITRACIN 0.9 GM PACKET TP SCH (10:03)
[2020-10-25] MEDS: amLODIPine BESYLATE 5 MG TABLET (FP) PO SCH (10:04)
[2020-10-25] MEDS: PRENATAL VITAMINS W/ FOLIC ACID TABLET (FP) PO SCH (10:04)
[2020-10-25] MEDS: NICOTINE 21 MG/24 HOURS TOPICAL PATCH TD SCH (10:04)
[2020-10-25] MEDS ORDERED: POTASSIUM CHLORIDE TABS 20 MEQ TABLET.ER (FP) PO ONE (17:35)
[2020-10-25] MEDS: MELATONIN 5 MG TABLETS PO SCH (22:16)
[2020-10-25] MEDS: THIAMINE HCL 100 MG TABLET (FP) PO SCH (22:16)
[2020-10-25] MEDS: OLANZapine 5 MG TABLET PO SCH (22:25)
[2020-10-25] MEDS: MAG HYDROX/AL HYDROX/SIMETH 30 ML UNIT-DOSE CUP PO PRN (23:33)
[2020-10-26] MEDS: hydrOXYzine PAMOATE 25 MG CAPSULE (FP) PO SCH ×5 (05:10→22:32)
[2020-10-26] MEDS: chlordiazePOXIDE HCL 25 MG CAPSULE PO SCH ×4 (05:11→22:30)
[2020-10-26] MEDS: BACITRACIN 0.9 GM PACKET TP SCH (10:12)
[2020-10-26] MEDS: PRENATAL VITAMINS W/ FOLIC ACID TABLET (FP) PO SCH (10:12)
[2020-10-26] MEDS: TAMSULOSIN HCL 0.4 MG CAP PO SCH (10:12)
[2020-10-26] MEDS: amLODIPine BESYLATE 5 MG TABLET (FP) PO SCH (10:12)
[2020-10-26] MEDS: NICOTINE 21 MG/24 HOURS TOPICAL PATCH TD SCH (10:13)
[2020-10-26] MEDS: BICTEGRAV/EMTRICIT/TENOFOV (BIKTARVY) 50-200-25 MG TABLET PO SCH (10:13)
[2020-10-26 10:45] LABS: BLOOD UREA NITROGEN 13.6 mg/dL (7-18)
[2020-10-26] MEDS: MAG HYDROX/AL HYDROX/SIMETH 30 ML UNIT-DOSE CUP PO PRN (19:43)
[2020-10-26] MEDS: OLANZapine 5 MG TABLET PO SCH (22:30)
[2020-10-26] MEDS: THIAMINE HCL 100 MG TABLET (FP) PO SCH (22:30)
[2020-10-26] MEDS: MELATONIN 5 MG TABLETS PO SCH (22:32)
[2020-10-27] MEDS ORDERED: chlordiazePOXIDE HCL 10 MG CAPSULE PO PRN
[2020-10-27] MEDS: hydrOXYzine PAMOATE 25 MG CAPSULE (FP) PO SCH ×5 (05:36→22:10)
[2020-10-27] MEDS: chlordiazePOXIDE HCL 10 MG CAPSULE PO SCH ×4 (05:37→22:10)
[2020-10-27 06:06] LABS: SARS-CoV-2 NAA Not Detected (Not Detected)
[2020-10-27] MEDS: TAMSULOSIN HCL 0.4 MG CAP PO SCH (09:08)
[2020-10-27] MEDS: amLODIPine BESYLATE 5 MG TABLET (FP) PO SCH (10:08)
[2020-10-27] MEDS: BACITRACIN 0.9 GM PACKET TP SCH (10:08)
[2020-10-27] MEDS: PRENATAL VITAMINS W/ FOLIC ACID TABLET (FP) PO SCH (10:08)
[2020-10-27] MEDS: NICOTINE 21 MG/24 HOURS TOPICAL PATCH TD SCH (10:10)
[2020-10-27] MEDS: THIAMINE HCL 100 MG TABLET (FP) PO SCH (22:10)
[2020-10-27] MEDS: OLANZapine 5 MG TABLET PO SCH (22:10)
[2020-10-27] MEDS: MELATONIN 5 MG TABLETS PO SCH (22:11)
[2020-10-28] MEDS: chlordiazePOXIDE HCL 10 MG CAPSULE PO SCH ×2 (06:17→18:15)
[2020-10-28] MEDS: hydrOXYzine PAMOATE 25 MG CAPSULE (FP) PO SCH ×5 (06:18→22:12)
[2020-10-28] MEDS: BICTEGRAV/EMTRICIT/TENOFOV (BIKTARVY) 50-200-25 MG TABLET PO SCH (07:54)
[2020-10-28] MEDS: TAMSULOSIN HCL 0.4 MG CAP PO SCH (07:55)
[2020-10-28] MEDS: NICOTINE 21 MG/24 HOURS TOPICAL PATCH TD SCH (10:32)
[2020-10-28] MEDS: BACITRACIN 0.9 GM PACKET TP SCH (10:32)
[2020-10-28] MEDS: PRENATAL VITAMINS W/ FOLIC ACID TABLET (FP) PO SCH (10:32)
[2020-10-28] MEDS: amLODIPine BESYLATE 5 MG TABLET (FP) PO SCH (10:32)
[2020-10-28] MEDS: THIAMINE HCL 100 MG TABLET (FP) PO SCH (22:12)
[2020-10-28] MEDS: MELATONIN 5 MG TABLETS PO SCH (22:12)
[2020-10-28] MEDS: OLANZapine 5 MG TABLET PO SCH (22:13)
[2020-10-29] MEDS ORDERED: chlordiazePOXIDE HCL 10 MG CAPSULE PO ONE (05:00)
[2020-10-29] MEDS: hydrOXYzine PAMOATE 25 MG CAPSULE (FP) PO SCH ×2 (05:10→10:11)
[2020-10-29] MEDS: TAMSULOSIN HCL 0.4 MG CAP PO SCH (08:05)
[2020-10-29 09:09] VITALS: BP 142/96; PULSE 96; TEMP 98
[2020-10-29] MEDS: NICOTINE 21 MG/24 HOURS TOPICAL PATCH TD SCH (10:10)
[2020-10-29] MEDS: PRENATAL VITAMINS W/ FOLIC ACID TABLET (FP) PO SCH (10:11)
[2020-10-29] MEDS: amLODIPine BESYLATE 5 MG TABLET (FP) PO SCH (10:11)
[2020-10-29] MEDS: BACITRACIN 0.9 GM PACKET TP SCH (10:11)
== END 2020-10-29 11:14 | disposition other institution (70) | DRG 773 ==
LOC: YASAS 11:34 → Y3N 14:17 → Y6N 10-25 14:11
PROVIDERS: ADMIT Allergy & Immunology; ATTEND Allergy & Immunology
PROC: HZ2ZZZZ Detoxification Services for Substance Abuse Treatment (ICD-10-PCS; principal; 2020-10-24)
DX: F10.230 Alcohol dependence with withdrawal, uncomplicated (principal); F11.23 Opioid dependence with withdrawal; F14.20 Cocaine dependence, uncomplicated; F17.210 Nicotine dependence, cigarettes, uncomplicated; F19.24 Other psychoactive substance dependence with psychoactive substance-induced mood disorder; F32.9 Major depressive disorder, single episode, unspecified; Z21 Asymptomatic human immunodeficiency virus [HIV] infection status; G62.9 Polyneuropathy, unspecified; I10 Essential (primary) hypertension; G47.00 Insomnia, unspecified; J45.909 Unspecified asthma, uncomplicated; N40.0 Benign prostatic hyperplasia without lower urinary tract symptoms; B18.2 Chronic viral hepatitis C; M17.0 Bilateral primary osteoarthritis of knee; M54.5 Low back pain; G89.29 Other chronic pain; Z99.89 Dependence on other enabling machines and devices; Z91.19 Patient's noncompliance with other medical treatment and regimen; S61.211D Laceration without foreign body of left index finger without damage to nail, subsequent encounter; W29.8XXD Contact with other powered hand tools and household machinery, subsequent encounter
CPT/HCPCS: 36415; 80053; 84132; 84520; 85027; 86780; 90715; C9803; U0003; U0005

== ENCOUNTER 2020-10-29 11:19 | Inpatient (IN) | payer OTHER ==
[2020-10-29] MEDS ORDERED: MAG HYDROX/AL HYDROX/SIMETH 30 ML UNIT-DOSE CUP PO PRN (12:15)
[2020-10-29] MEDS ORDERED: hydrOXYzine PAMOATE 25 MG CAPSULE (FP) PO PRN (12:15)
[2020-10-29] MEDS ORDERED: guaiFENesin 200 MG/10 ML 10 ML UNIT-DOSE CUPS PO PRN (12:15)
[2020-10-29] MEDS ORDERED: P-EPHED 60MG/TRIPROLIDI 2.5MG TABLET PO PRN (12:15)
[2020-10-29] MEDS ORDERED: NICOTINE POLACRILEX 2 MG GUM BUC PRN (12:15)
[2020-10-29] MEDS ORDERED: MENTHOL/PHENOL 1 EACH UD MM PRN (12:15)
[2020-10-29] MEDS ORDERED: MAGNESIUM HYDROX 2400MG/30ML ORAL SUSPENSION 30 ML CUP PO PRN (12:15)
[2020-10-29] MEDS ORDERED: LOPERAMIDE HCL 2 MG CAPSULE PO PRN (12:15)
[2020-10-29] MEDS ORDERED: MAGNESIUM CITRATE 300 ML BOTTLE PO PRN (12:15)
[2020-10-29] MEDS ORDERED: ACETAMINOPHEN 325 MG TABLET (FP) PO PRN (12:15)
[2020-10-29] MEDS: THIAMINE HCL 100 MG TABLET (FP) PO SCH (21:35)
[2020-10-29] MEDS: OLANZapine 5 MG TABLET PO SCH (21:35)
[2020-10-29] MEDS ORDERED: MELATONIN 5 MG TABLETS PO SCH (22:00)
[2020-10-30] MEDS: TAMSULOSIN HCL 0.4 MG CAP PO SCH (08:57)
[2020-10-30] MEDS: amLODIPine BESYLATE 5 MG TABLET (FP) PO SCH (09:56)
[2020-10-30] MEDS: BACITRACIN 0.9 GM PACKET TP SCH (09:57)
[2020-10-30] MEDS: BICTEGRAV/EMTRICIT/TENOFOV (BIKTARVY) 50-200-25 MG TABLET PO SCH (09:57)
[2020-10-30] MEDS: PRENATAL VITAMINS W/ FOLIC ACID TABLET (FP) PO SCH (09:57)
[2020-10-30] MEDS: NICOTINE 21 MG/24 HOURS TOPICAL PATCH TD SCH (09:58)
[2020-10-30] MEDS: ALBUTEROL SO4 HFA INHALER IH PRN (09:58)
[2020-10-30] MEDS: IBUPROFEN 400 MG TABLET (FP) PO PRN (12:27)
[2020-10-30] MEDS: MELATONIN 5 MG TABLETS PO PRN (21:12)
[2020-10-30] MEDS: THIAMINE HCL 100 MG TABLET (FP) PO SCH (21:12)
[2020-10-30] MEDS: OLANZapine 5 MG TABLET PO SCH (21:13)
[2020-10-31] MEDS: TAMSULOSIN HCL 0.4 MG CAP PO SCH (07:49)
[2020-10-31] MEDS: PRENATAL VITAMINS W/ FOLIC ACID TABLET (FP) PO SCH (09:54)
[2020-10-31] MEDS: amLODIPine BESYLATE 5 MG TABLET (FP) PO SCH (09:54)
[2020-10-31] MEDS: BACITRACIN 0.9 GM PACKET TP SCH (09:54)
[2020-10-31] MEDS: ERGOCALCIFEROL (VIT D2) 50,000 UNIT (1.25 MG) CAPSULE PO SCH (09:55)
[2020-10-31] MEDS: BICTEGRAV/EMTRICIT/TENOFOV (BIKTARVY) 50-200-25 MG TABLET PO SCH (09:55)
[2020-10-31] MEDS: NICOTINE 21 MG/24 HOURS TOPICAL PATCH TD SCH (09:55)
[2020-10-31] MEDS: ALBUTEROL SO4 HFA INHALER IH PRN (09:56)
[2020-10-31] MEDS: IBUPROFEN 400 MG TABLET (FP) PO PRN (12:24)
[2020-10-31] MEDS: BUPRENORPHINE/NALOXONE 2 MG/0.5 MG FILM PACKET SL SCH (14:15)
[2020-10-31] MEDS: THIAMINE HCL 100 MG TABLET (FP) PO SCH (21:26)
[2020-10-31] MEDS: OLANZapine 5 MG TABLET PO SCH (21:27)
[2020-10-31] MEDS: MELATONIN 5 MG TABLETS PO PRN (21:27)
[2020-11-01] MEDS ORDERED: MASKS NR ONE (06:54)
[2020-11-01] MEDS: TAMSULOSIN HCL 0.4 MG CAP PO SCH (07:48)
[2020-11-01] MEDS: amLODIPine BESYLATE 5 MG TABLET (FP) PO SCH (10:02)
[2020-11-01] MEDS: PRENATAL VITAMINS W/ FOLIC ACID TABLET (FP) PO SCH (10:02)
[2020-11-01] MEDS: BACITRACIN 0.9 GM PACKET TP SCH (10:02)
[2020-11-01] MEDS: BICTEGRAV/EMTRICIT/TENOFOV (BIKTARVY) 50-200-25 MG TABLET PO SCH (10:02)
[2020-11-01] MEDS: BUPRENORPHINE/NALOXONE 2 MG/0.5 MG FILM PACKET SL SCH (10:03)
[2020-11-01] MEDS: NICOTINE 21 MG/24 HOURS TOPICAL PATCH TD SCH (10:05)
[2020-11-01] MEDS: THIAMINE HCL 100 MG TABLET (FP) PO SCH (21:19)
[2020-11-01] MEDS: OLANZapine 5 MG TABLET PO SCH (21:19)
[2020-11-01] MEDS: MELATONIN 5 MG TABLETS PO PRN (21:19)
[2020-11-02 06:05] LABS: SARS-CoV-2 NAA Not Detected (Not Detected)
[2020-11-02] MEDS: TAMSULOSIN HCL 0.4 MG CAP PO SCH (07:42)
[2020-11-02] MEDS: NICOTINE 21 MG/24 HOURS TOPICAL PATCH TD SCH (10:03)
[2020-11-02] MEDS: BACITRACIN 0.9 GM PACKET TP SCH ×2 (10:03→15:16)
[2020-11-02] MEDS: amLODIPine BESYLATE 5 MG TABLET (FP) PO SCH (10:04)
[2020-11-02] MEDS: BICTEGRAV/EMTRICIT/TENOFOV (BIKTARVY) 50-200-25 MG TABLET PO SCH (10:04)
[2020-11-02] MEDS: PRENATAL VITAMINS W/ FOLIC ACID TABLET (FP) PO SCH (10:04)
[2020-11-02] MEDS: BUPRENORPHINE/NALOXONE 2 MG/0.5 MG FILM PACKET SL SCH ×2 (10:05→19:21)
[2020-11-02] MEDS: OLANZapine 5 MG TABLET PO SCH (21:37)
[2020-11-02] MEDS: MELATONIN 5 MG TABLETS PO PRN (21:37)
[2020-11-02] MEDS: THIAMINE HCL 100 MG TABLET (FP) PO SCH (21:37)
[2020-11-03] MEDS: BUPRENORPHINE/NALOXONE 2 MG/0.5 MG FILM PACKET SL SCH ×2 (06:07→19:14)
[2020-11-03] MEDS: ALBUTEROL SO4 HFA INHALER IH PRN ×3 (06:08→21:42)
[2020-11-03] MEDS: TAMSULOSIN HCL 0.4 MG CAP PO SCH (08:58)
[2020-11-03] MEDS: BICTEGRAV/EMTRICIT/TENOFOV (BIKTARVY) 50-200-25 MG TABLET PO SCH (09:58)
[2020-11-03] MEDS: NICOTINE 21 MG/24 HOURS TOPICAL PATCH TD SCH (09:58)
[2020-11-03] MEDS: amLODIPine BESYLATE 5 MG TABLET (FP) PO SCH (09:58)
[2020-11-03] MEDS: PRENATAL VITAMINS W/ FOLIC ACID TABLET (FP) PO SCH (09:58)
[2020-11-03] MEDS: BACITRACIN 0.9 GM PACKET TP SCH (09:58)
[2020-11-03] MEDS: MELATONIN 5 MG TABLETS PO PRN (21:41)
[2020-11-03] MEDS: THIAMINE HCL 100 MG TABLET (FP) PO SCH (21:41)
[2020-11-03] MEDS: OLANZapine 5 MG TABLET PO SCH (21:42)
[2020-11-04] MEDS: BUPRENORPHINE/NALOXONE 2 MG/0.5 MG FILM PACKET SL SCH ×2 (06:06→19:03)
[2020-11-04] MEDS: IBUPROFEN 400 MG TABLET (FP) PO PRN (06:07)
[2020-11-04] MEDS: PRENATAL VITAMINS W/ FOLIC ACID TABLET (FP) PO SCH (10:13)
[2020-11-04] MEDS: BACITRACIN 0.9 GM PACKET TP SCH (10:13)
[2020-11-04] MEDS: BICTEGRAV/EMTRICIT/TENOFOV (BIKTARVY) 50-200-25 MG TABLET PO SCH (10:14)
[2020-11-04] MEDS: amLODIPine BESYLATE 5 MG TABLET (FP) PO SCH (10:14)
[2020-11-04] MEDS: TAMSULOSIN HCL 0.4 MG CAP PO SCH (10:14)
[2020-11-04] MEDS: NICOTINE 21 MG/24 HOURS TOPICAL PATCH TD SCH (10:14)
[2020-11-04] MEDS: ALBUTEROL SO4 HFA INHALER IH PRN (10:15)
[2020-11-04] MEDS: MELATONIN 5 MG TABLETS PO PRN (21:11)
[2020-11-04] MEDS: THIAMINE HCL 100 MG TABLET (FP) PO SCH (21:11)
[2020-11-04] MEDS: OLANZapine 5 MG TABLET PO SCH (21:12)
[2020-11-04] MEDS: hydrOXYzine PAMOATE 50 MG CAPSULE (FP) PO PRN (23:21)
[2020-11-05] MEDS: BUPRENORPHINE/NALOXONE 2 MG/0.5 MG FILM PACKET SL SCH ×2 (06:54→18:31)
[2020-11-05] MEDS: TAMSULOSIN HCL 0.4 MG CAP PO SCH (07:38)
[2020-11-05] MEDS: hydrOXYzine PAMOATE 50 MG CAPSULE (FP) PO PRN ×2 (09:53→21:27)
[2020-11-05] MEDS: BACITRACIN 0.9 GM PACKET TP SCH (09:53)
[2020-11-05] MEDS: NICOTINE 21 MG/24 HOURS TOPICAL PATCH TD SCH (09:53)
[2020-11-05] MEDS: PRENATAL VITAMINS W/ FOLIC ACID TABLET (FP) PO SCH (09:53)
[2020-11-05] MEDS: BICTEGRAV/EMTRICIT/TENOFOV (BIKTARVY) 50-200-25 MG TABLET PO SCH (09:53)
[2020-11-05] MEDS: amLODIPine BESYLATE 5 MG TABLET (FP) PO SCH (09:53)
[2020-11-05] MEDS: ALBUTEROL SO4 HFA INHALER IH PRN (09:54)
[2020-11-05] MEDS: OLANZapine 5 MG TABLET PO SCH (21:26)
[2020-11-05] MEDS: MELATONIN 5 MG TABLETS PO PRN (21:26)
[2020-11-05] MEDS: THIAMINE HCL 100 MG TABLET (FP) PO SCH (21:26)
[2020-11-06] MEDS: hydrOXYzine PAMOATE 50 MG CAPSULE (FP) PO PRN ×2 (02:05→21:08)
[2020-11-06] MEDS: BUPRENORPHINE/NALOXONE 2 MG/0.5 MG FILM PACKET SL SCH ×2 (06:49→19:11)
[2020-11-06] MEDS: TAMSULOSIN HCL 0.4 MG CAP PO SCH (07:41)
[2020-11-06] MEDS: NICOTINE 21 MG/24 HOURS TOPICAL PATCH TD SCH (09:53)
[2020-11-06] MEDS: PRENATAL VITAMINS W/ FOLIC ACID TABLET (FP) PO SCH (09:53)
[2020-11-06] MEDS: BACITRACIN 0.9 GM PACKET TP SCH (09:53)
[2020-11-06] MEDS: amLODIPine BESYLATE 5 MG TABLET (FP) PO SCH (09:53)
[2020-11-06] MEDS: BICTEGRAV/EMTRICIT/TENOFOV (BIKTARVY) 50-200-25 MG TABLET PO SCH (09:54)
[2020-11-06] MEDS: ALBUTEROL SO4 HFA INHALER IH PRN (09:54)
[2020-11-06] MEDS: THIAMINE HCL 100 MG TABLET (FP) PO SCH (21:07)
[2020-11-06] MEDS: MELATONIN 5 MG TABLETS PO PRN (21:07)
[2020-11-06] MEDS: OLANZapine 5 MG TABLET PO SCH (21:08)
[2020-11-07] MEDS: BUPRENORPHINE/NALOXONE 2 MG/0.5 MG FILM PACKET SL SCH ×2 (06:00→18:55)
[2020-11-07] MEDS: TAMSULOSIN HCL 0.4 MG CAP PO SCH (07:44)
[2020-11-07] MEDS: PRENATAL VITAMINS W/ FOLIC ACID TABLET (FP) PO SCH (10:18)
[2020-11-07] MEDS: NICOTINE 21 MG/24 HOURS TOPICAL PATCH TD SCH (10:18)
[2020-11-07] MEDS: ERGOCALCIFEROL (VIT D2) 50,000 UNIT (1.25 MG) CAPSULE PO SCH (10:18)
[2020-11-07] MEDS: BICTEGRAV/EMTRICIT/TENOFOV (BIKTARVY) 50-200-25 MG TABLET PO SCH (10:19)
[2020-11-07] MEDS: BACITRACIN 0.9 GM PACKET TP SCH (10:20)
[2020-11-07] MEDS: amLODIPine BESYLATE 5 MG TABLET (FP) PO SCH (10:20)
[2020-11-07] MEDS: OLANZapine 5 MG TABLET PO SCH (21:18)
[2020-11-07] MEDS: MELATONIN 5 MG TABLETS PO PRN (21:18)
[2020-11-07] MEDS: THIAMINE HCL 100 MG TABLET (FP) PO SCH (21:18)
[2020-11-08] MEDS: BUPRENORPHINE/NALOXONE 2 MG/0.5 MG FILM PACKET SL SCH ×3 (06:39→17:34)
[2020-11-08] MEDS: TAMSULOSIN HCL 0.4 MG CAP PO SCH (07:33)
[2020-11-08] MEDS: NICOTINE 21 MG/24 HOURS TOPICAL PATCH TD SCH (09:43)
[2020-11-08] MEDS: hydrOXYzine PAMOATE 50 MG CAPSULE (FP) PO PRN ×2 (09:44→21:19)
[2020-11-08] MEDS: PRENATAL VITAMINS W/ FOLIC ACID TABLET (FP) PO SCH (09:44)
[2020-11-08] MEDS: BACITRACIN 0.9 GM PACKET TP SCH (09:44)
[2020-11-08] MEDS: BICTEGRAV/EMTRICIT/TENOFOV (BIKTARVY) 50-200-25 MG TABLET PO SCH (09:44)
[2020-11-08] MEDS: amLODIPine BESYLATE 5 MG TABLET (FP) PO SCH (09:44)
[2020-11-08] MEDS: OLANZapine 5 MG TABLET PO SCH (21:17)
[2020-11-08] MEDS: THIAMINE HCL 100 MG TABLET (FP) PO SCH (21:17)
[2020-11-09] MEDS: BUPRENORPHINE/NALOXONE 2 MG/0.5 MG FILM PACKET SL SCH ×3 (06:32→18:03)
[2020-11-09] MEDS: NICOTINE 21 MG/24 HOURS TOPICAL PATCH TD SCH (11:02)
[2020-11-09] MEDS: amLODIPine BESYLATE 5 MG TABLET (FP) PO SCH (11:02)
[2020-11-09] MEDS: PRENATAL VITAMINS W/ FOLIC ACID TABLET (FP) PO SCH (11:02)
[2020-11-09] MEDS: TAMSULOSIN HCL 0.4 MG CAP PO SCH (11:20)
[2020-11-09] MEDS: BICTEGRAV/EMTRICIT/TENOFOV (BIKTARVY) 50-200-25 MG TABLET PO SCH (11:21)
[2020-11-09] MEDS: BACITRACIN 0.9 GM PACKET TP SCH (11:24)
[2020-11-09] MEDS: THIAMINE HCL 100 MG TABLET (FP) PO SCH (21:32)
[2020-11-09] MEDS: OLANZapine 5 MG TABLET PO SCH (21:32)
[2020-11-09] MEDS: SUVOREXANT 15 MG TABLET PO PRN (21:33)
[2020-11-09] MEDS: hydrOXYzine PAMOATE 50 MG CAPSULE (FP) PO PRN (22:56)
[2020-11-10] MEDS: BUPRENORPHINE/NALOXONE 2 MG/0.5 MG FILM PACKET SL SCH ×3 (06:43→18:35)
[2020-11-10] MEDS: TAMSULOSIN HCL 0.4 MG CAP PO SCH (07:33)
[2020-11-10] MEDS: BICTEGRAV/EMTRICIT/TENOFOV (BIKTARVY) 50-200-25 MG TABLET PO SCH (09:02)
[2020-11-10] MEDS: PRENATAL VITAMINS W/ FOLIC ACID TABLET (FP) PO SCH (09:02)
[2020-11-10] MEDS: BACITRACIN 0.9 GM PACKET TP SCH (09:02)
[2020-11-10] MEDS: NICOTINE 21 MG/24 HOURS TOPICAL PATCH TD SCH (09:03)
[2020-11-10] MEDS: amLODIPine BESYLATE 5 MG TABLET (FP) PO SCH (09:03)
[2020-11-10] MEDS: THIAMINE HCL 100 MG TABLET (FP) PO SCH (21:05)
[2020-11-10] MEDS: OLANZapine 5 MG TABLET PO SCH (21:05)
[2020-11-10] MEDS: SUVOREXANT 15 MG TABLET PO PRN (21:06)
[2020-11-10] MEDS: hydrOXYzine PAMOATE 50 MG CAPSULE (FP) PO PRN (22:40)
[2020-11-11] MEDS: BUPRENORPHINE/NALOXONE 2 MG/0.5 MG FILM PACKET SL SCH ×3 (06:36→18:07)
[2020-11-11] MEDS: TAMSULOSIN HCL 0.4 MG CAP PO SCH (07:42)
[2020-11-11] MEDS ORDERED: SUVOREXANT 10 MG, SUVOREXANT 5 MG PO PRN (08:37)
[2020-11-11] MEDS: NICOTINE 21 MG/24 HOURS TOPICAL PATCH TD SCH (10:00)
[2020-11-11] MEDS: BICTEGRAV/EMTRICIT/TENOFOV (BIKTARVY) 50-200-25 MG TABLET PO SCH (10:00)
[2020-11-11] MEDS: PRENATAL VITAMINS W/ FOLIC ACID TABLET (FP) PO SCH (10:01)
[2020-11-11] MEDS: amLODIPine BESYLATE 5 MG TABLET (FP) PO SCH (10:01)
[2020-11-11] MEDS: BACITRACIN 0.9 GM PACKET TP SCH (10:01)
[2020-11-11] MEDS: IBUPROFEN 400 MG TABLET (FP) PO PRN (14:22)
[2020-11-11] MEDS: OLANZapine 5 MG TABLET PO SCH (21:26)
[2020-11-11] MEDS: THIAMINE HCL 100 MG TABLET (FP) PO SCH (21:26)
[2020-11-11] MEDS ORDERED: SUVOREXANT 10 MG TABLET PO ONE (21:27)
[2020-11-11] MEDS ORDERED: SUVOREXANT 5 MG TABLET ONE (21:27)
[2020-11-11] MEDS: hydrOXYzine PAMOATE 50 MG CAPSULE (FP) PO PRN (21:27)
[2020-11-11] MEDS ORDERED: SUVOREXANT 10 MG TABLET PO PRN (22:00)
[2020-11-12] MEDS: BUPRENORPHINE/NALOXONE 2 MG/0.5 MG FILM PACKET SL SCH (06:06)
[2020-11-12 06:50] VITALS: BP 100/66; PULSE 85; TEMP 97.7
[2020-11-12] MEDS: TAMSULOSIN HCL 0.4 MG CAP PO SCH (07:31)
[2020-11-12] MEDS: PRENATAL VITAMINS W/ FOLIC ACID TABLET (FP) PO SCH (09:28)
[2020-11-12] MEDS: BACITRACIN 0.9 GM PACKET TP SCH (09:28)
[2020-11-12] MEDS: hydrOXYzine PAMOATE 50 MG CAPSULE (FP) PO PRN (09:29)
[2020-11-12] MEDS: BICTEGRAV/EMTRICIT/TENOFOV (BIKTARVY) 50-200-25 MG TABLET PO SCH (09:29)
[2020-11-12] MEDS: NICOTINE 21 MG/24 HOURS TOPICAL PATCH TD SCH (09:29)
[2020-11-12] MEDS: amLODIPine BESYLATE 5 MG TABLET (FP) PO SCH (09:29)
== END 2020-11-12 09:48 | disposition home or self-care (01) | DRG 772 ==
LOC: YASAS 11:19 → Y3W 11:28
PROVIDERS: ADMIT Allergy & Immunology; ATTEND Allergy & Immunology
PROC: HZ42ZZZ Group Counseling for Substance Abuse Treatment, Cognitive-Behavioral (ICD-10-PCS; principal; 2020-10-29)
DX: F11.20 Opioid dependence, uncomplicated (principal); F10.20 Alcohol dependence, uncomplicated; F19.282 Other psychoactive substance dependence with psychoactive substance-induced sleep disorder; F19.24 Other psychoactive substance dependence with psychoactive substance-induced mood disorder; F20.9 Schizophrenia, unspecified; F90.9 Attention-deficit hyperactivity disorder, unspecified type; Z21 Asymptomatic human immunodeficiency virus [HIV] infection status; I10 Essential (primary) hypertension; H91.93 Unspecified hearing loss, bilateral; M54.5 Low back pain; G89.29 Other chronic pain; M12.9 Arthropathy, unspecified
CPT/HCPCS: 36415; 86803; C9803; U0003; U0005

== ENCOUNTER 2021-12-09 11:12 | Inpatient (IN) | payer OTHER ==
[2021-12-09 11:30] VITALS: BMI 19.3
[2021-12-09] MEDS ORDERED: ACETAMINOPHEN 325 MG TABLET (FP) PO PRN ×2 (11:52)
[2021-12-09] MEDS ORDERED: LOPERAMIDE HCL 2 MG CAPSULE PO PRN (11:52)
[2021-12-09] MEDS ORDERED: BISMUTH SUBSALICYLATE 262 MG/15 ML BTL PO PRN (11:52)
[2021-12-09] MEDS ORDERED: NALOXONE HCL (KLOXXADO) 8 MG SPRAY NS PRN (11:52)
[2021-12-09] MEDS ORDERED: DICYCLOMINE HCL 10 MG CAPSULE PO PRN (11:52)
[2021-12-09] MEDS ORDERED: BENZOCAINE/MENTHOL (CHLORASEPTIC ) LOZENGE MM PRN (11:52)
[2021-12-09] MEDS ORDERED: IBUPROFEN 600 MG TABLET (FP) PO PRN (11:52)
[2021-12-09] MEDS ORDERED: MAGNESIUM CITRATE 300 ML BOTTLE PO PRN (11:52)
[2021-12-09] MEDS ORDERED: MAGNESIUM HYDROX 2400MG/30ML ORAL SUSPENSION 30 ML CUP PO PRN (11:52)
[2021-12-09] MEDS ORDERED: ONDANSETRON *ODT* 4 MG TABLET SL PRN (11:52)
[2021-12-09] MEDS ORDERED: NICOTINE 10 MG CARTRIDGE (INHALER) IH PRN (11:52)
[2021-12-09] MEDS ORDERED: MAG HYDROX/AL HYDROX/SIMETH 30 ML UNIT-DOSE CUP PO PRN (11:52)
[2021-12-09] MEDS ORDERED: IBUPROFEN 400 MG TABLET (FP) PO PRN (11:52)
[2021-12-09] MEDS ORDERED: chlordiazePOXIDE HCL 25 MG CAPSULE PO PRN (11:52)
[2021-12-09] MEDS ORDERED: ALBUTEROL SO4 HFA INHALER IH PRN (11:56)
[2021-12-09] MEDS ORDERED: CALAMINE 8% TOPICAL LOTION 177 ML BOTTLE TP PRN (11:58)
[2021-12-09] MEDS: TAMSULOSIN HCL 0.4 MG CAP PO SCH (14:17)
[2021-12-09] MEDS: amLODIPine BESYLATE 5 MG TABLET (FP) PO SCH (14:17)
[2021-12-09] MEDS: BICTEGRAV/EMTRICIT/TENOFOV (BIKTARVY) 50-200-25 MG TABLET PO SCH (14:18)
[2021-12-09] MEDS: METHOCARBAMOL 500 MG TABLET PO PRN (14:18)
[2021-12-09] MEDS: hydrOXYzine PAMOATE 25 MG CAPSULE (FP) PO SCH ×3 (14:18→22:39)
[2021-12-09] MEDS: NICOTINE 21 MG/24 HOURS TOPICAL PATCH TD SCH (14:31)
[2021-12-09 16:38] LABS: ALBUMIN 3.3 g/dl (3.4-5.0)
[2021-12-09 16:39] LABS: CALCIUM 8.6 mg/dL (8.5-10.1)
[2021-12-09 16:42] LABS: CREATININE 1.1 mg/dL (0.55-1.3)
[2021-12-09 16:43] LABS: BILIRUBIN,TOTAL 0.4 mg/dL (0.2-1); TOT PROT 7.7 g/dl (6.4-8.2)
[2021-12-09 16:51] LABS: HEMOGLOBIN 12.9 GM/dL (11.7-16.9); MEAN PLT VOLUME 8.2 fl (7.5-11.1); RBC 5.35 M/mm3 (4.00-5.60); RDW 14.6 % (11.9-15.9); WHITE BLOOD COUNT 4.8 K/mm3 (4.0-10.0)
[2021-12-09 16:53] LABS: MCH 24.1 pg (25.7-33.7); MCHC 31.4 g/dl (32.0-35.9); MEAN CELL VOLUME 76.6 fl (80-96); PLATELET COUNT 179 10^3/uL (134-434)
[2021-12-09] MEDS: chlordiazePOXIDE HCL 25 MG CAPSULE PO SCH ×2 (18:03→22:21)
[2021-12-09] MEDS: OLANZapine 5 MG TABLET PO SCH (22:20)
[2021-12-09] MEDS: THIAMINE HCL 100 MG TABLET (FP) PO SCH (22:20)
[2021-12-09] MEDS: MELATONIN 5 MG TABLETS PO SCH (22:38)
[2021-12-10] MEDS: hydrOXYzine PAMOATE 25 MG CAPSULE (FP) PO SCH ×5 (05:28→23:06)
[2021-12-10] MEDS: chlordiazePOXIDE HCL 25 MG CAPSULE PO SCH ×4 (05:28→23:06)
[2021-12-10] MEDS: TAMSULOSIN HCL 0.4 MG CAP PO SCH (07:34)
[2021-12-10] MEDS: BICTEGRAV/EMTRICIT/TENOFOV (BIKTARVY) 50-200-25 MG TABLET PO SCH (07:34)
[2021-12-10] MEDS: PRENATAL VITAMINS W/ FOLIC ACID TABLET (FP) PO SCH (10:41)
[2021-12-10] MEDS: METHOCARBAMOL 500 MG TABLET PO PRN (10:41)
[2021-12-10] MEDS: amLODIPine BESYLATE 5 MG TABLET (FP) PO SCH (10:41)
[2021-12-10] MEDS: NICOTINE 21 MG/24 HOURS TOPICAL PATCH TD SCH (10:45)
[2021-12-10] MEDS: OLANZapine 5 MG TABLET PO SCH (23:05)
[2021-12-10] MEDS: THIAMINE HCL 100 MG TABLET (FP) PO SCH (23:06)
[2021-12-11] MEDS: MELATONIN 5 MG TABLETS PO SCH ×2 (00:10→23:19)
[2021-12-11] MEDS: chlordiazePOXIDE HCL 25 MG CAPSULE PO SCH ×4 (05:51→23:05)
[2021-12-11] MEDS: hydrOXYzine PAMOATE 25 MG CAPSULE (FP) PO SCH ×5 (05:51→23:04)
[2021-12-11] MEDS: BICTEGRAV/EMTRICIT/TENOFOV (BIKTARVY) 50-200-25 MG TABLET PO SCH (07:40)
[2021-12-11] MEDS: TAMSULOSIN HCL 0.4 MG CAP PO SCH (07:41)
[2021-12-11] MEDS: amLODIPine BESYLATE 5 MG TABLET (FP) PO SCH (11:02)
[2021-12-11] MEDS: PRENATAL VITAMINS W/ FOLIC ACID TABLET (FP) PO SCH (11:03)
[2021-12-11] MEDS: NICOTINE 21 MG/24 HOURS TOPICAL PATCH TD SCH (11:03)
[2021-12-11] MEDS: OLANZapine 5 MG TABLET PO SCH (23:04)
[2021-12-11] MEDS: THIAMINE HCL 100 MG TABLET (FP) PO SCH (23:04)
[2021-12-11] MEDS ORDERED: METOPROLOL TARTRATE 25 MG TABLET (FP) PO ONE (23:06)
[2021-12-11] MEDS: ASPIRIN 81 MG CHEWABLE TABLETS PO SCH (23:19)
[2021-12-12] MEDS ORDERED: chlordiazePOXIDE HCL 10 MG CAPSULE PO PRN
[2021-12-12] MEDS: chlordiazePOXIDE HCL 10 MG CAPSULE PO SCH ×4 (07:21→23:31)
[2021-12-12] MEDS: hydrOXYzine PAMOATE 25 MG CAPSULE (FP) PO SCH ×5 (07:21→23:32)
[2021-12-12] MEDS: PRENATAL VITAMINS W/ FOLIC ACID TABLET (FP) PO SCH (10:44)
[2021-12-12] MEDS: BICTEGRAV/EMTRICIT/TENOFOV (BIKTARVY) 50-200-25 MG TABLET PO SCH (10:44)
[2021-12-12] MEDS: TAMSULOSIN HCL 0.4 MG CAP PO SCH (10:44)
[2021-12-12] MEDS: METHOCARBAMOL 500 MG TABLET PO PRN (10:45)
[2021-12-12] MEDS: amLODIPine BESYLATE 5 MG TABLET (FP) PO SCH (10:45)
[2021-12-12] MEDS: ASPIRIN 81 MG CHEWABLE TABLETS PO SCH (10:45)
[2021-12-12] MEDS: NICOTINE 21 MG/24 HOURS TOPICAL PATCH TD SCH (10:46)
[2021-12-12] MEDS: THIAMINE HCL 100 MG TABLET (FP) PO SCH (22:12)
[2021-12-12] MEDS: OLANZapine 5 MG TABLET PO SCH (22:12)
[2021-12-12] MEDS: MELATONIN 5 MG TABLETS PO SCH (23:32)
[2021-12-13] MEDS: METHOCARBAMOL 500 MG TABLET PO PRN (01:02)
[2021-12-13] MEDS: hydrOXYzine PAMOATE 25 MG CAPSULE (FP) PO SCH ×5 (05:56→22:16)
[2021-12-13] MEDS: chlordiazePOXIDE HCL 10 MG CAPSULE PO SCH ×2 (05:56→18:38)
[2021-12-13] MEDS: TAMSULOSIN HCL 0.4 MG CAP PO SCH (07:46)
[2021-12-13] MEDS: BICTEGRAV/EMTRICIT/TENOFOV (BIKTARVY) 50-200-25 MG TABLET PO SCH (07:46)
[2021-12-13] MEDS: amLODIPine BESYLATE 5 MG TABLET (FP) PO SCH (10:51)
[2021-12-13] MEDS: ASPIRIN 81 MG CHEWABLE TABLETS PO SCH (10:52)
[2021-12-13] MEDS: NICOTINE 21 MG/24 HOURS TOPICAL PATCH TD SCH (10:52)
[2021-12-13] MEDS: PRENATAL VITAMINS W/ FOLIC ACID TABLET (FP) PO SCH (10:52)
[2021-12-13] MEDS: OLANZapine 5 MG TABLET PO SCH (22:16)
[2021-12-13] MEDS: THIAMINE HCL 100 MG TABLET (FP) PO SCH (22:16)
[2021-12-13] MEDS: MELATONIN 5 MG TABLETS PO SCH (22:16)
[2021-12-14] MEDS ORDERED: chlordiazePOXIDE HCL 10 MG CAPSULE PO ONE (05:00)
[2021-12-14] MEDS: hydrOXYzine PAMOATE 25 MG CAPSULE (FP) PO SCH ×2 (05:24→11:20)
[2021-12-14 09:20] VITALS: BP 137/83; PULSE 107; TEMP 98.1
[2021-12-14] MEDS: TAMSULOSIN HCL 0.4 MG CAP PO SCH (10:05)
[2021-12-14] MEDS: BICTEGRAV/EMTRICIT/TENOFOV (BIKTARVY) 50-200-25 MG TABLET PO SCH (10:05)
[2021-12-14] MEDS: ASPIRIN 81 MG CHEWABLE TABLETS PO SCH (10:05)
[2021-12-14] MEDS: amLODIPine BESYLATE 5 MG TABLET (FP) PO SCH (10:06)
[2021-12-14] MEDS: PRENATAL VITAMINS W/ FOLIC ACID TABLET (FP) PO SCH (11:19)
[2021-12-14] MEDS: NICOTINE 21 MG/24 HOURS TOPICAL PATCH TD SCH (11:19)
== END 2021-12-14 10:24 | disposition home or self-care (01) | DRG 773 ==
LOC: YASAS 11:12 → Y6N 12:51
PROVIDERS: ADMIT Allergy & Immunology; ATTEND Surgery
PROC: HZ2ZZZZ Detoxification Services for Substance Abuse Treatment (ICD-10-PCS; principal; 2021-12-09)
DX: F11.23 Opioid dependence with withdrawal (principal); F10.230 Alcohol dependence with withdrawal, uncomplicated; F14.20 Cocaine dependence, uncomplicated; F17.210 Nicotine dependence, cigarettes, uncomplicated; F10.24 Alcohol dependence with alcohol-induced mood disorder; F19.24 Other psychoactive substance dependence with psychoactive substance-induced mood disorder; F19.282 Other psychoactive substance dependence with psychoactive substance-induced sleep disorder; F33.9 Major depressive disorder, recurrent, unspecified; Z21 Asymptomatic human immunodeficiency virus [HIV] infection status; I10 Essential (primary) hypertension; J45.909 Unspecified asthma, uncomplicated; H91.93 Unspecified hearing loss, bilateral; G89.29 Other chronic pain; M54.50 Low back pain, unspecified; M17.0 Bilateral primary osteoarthritis of knee; Z99.89 Dependence on other enabling machines and devices
CPT/HCPCS: 36415; 80053; 85027; 86780; 93005; 93010; C9803-CS; U0003; U0005

== ENCOUNTER 2024-05-04 11:57 | Inpatient (IN) | payer OTHER ==
[2024-05-04 12:18] VITALS: BMI 20.1
[2024-05-04] MEDS ORDERED: BISMUTH SUBSALICYLATE 524 MG/30 ML PO PRN (14:36)
[2024-05-04] MEDS ORDERED: DICYCLOMINE HCL 10 MG CAPSULE PO PRN (14:36)
[2024-05-04] MEDS ORDERED: POLYETHYLENE GLYCOL (HEALTHYLAX) 3350 17 GM PACKET PO PRN (14:36)
[2024-05-04] MEDS ORDERED: NALOXONE (NARCAN) HCL 4 MG/0.1 ML SPRAY NS PRN (14:36)
[2024-05-04] MEDS ORDERED: ONDANSETRON *ODT* 4 MG TABLET SL PRN (14:36)
[2024-05-04] MEDS ORDERED: MAGNESIUM HYDROX 2400MG/30ML ORAL SUSPENSION 30 ML CUP PO PRN (14:36)
[2024-05-04] MEDS ORDERED: LOPERAMIDE HCL 2 MG CAPSULE PO PRN (14:36)
[2024-05-04] MEDS ORDERED: hydrOXYzine PAMOATE 25 MG CAPSULE (FP) PO PRN (14:36)
[2024-05-04] MEDS ORDERED: chlordiazePOXIDE HCL 25 MG CAPSULE PO PRN (14:36)
[2024-05-04] MEDS ORDERED: guaiFENesin 600 MG TABLET.ER (FP) PO PRN (14:36)
[2024-05-04] MEDS ORDERED: MAG HYDROX/AL HYDROX/SIMETH 30 ML UNIT-DOSE CUP PO PRN (14:36)
[2024-05-04] MEDS ORDERED: BENZONATATE 200 MG CAPSULE PO PRN (14:36)
[2024-05-04] MEDS ORDERED: IBUPROFEN 400 MG TABLET (FP) PO PRN (14:36)
[2024-05-04] MEDS ORDERED: ACETAMINOPHEN 325 MG TABLET (FP) PO PRN (14:36)
[2024-05-04] MEDS ORDERED: BENZOCAINE/MENTHOL (CHLORASEPTIC ) LOZENGE MM PRN (14:36)
[2024-05-04] MEDS: NICOTINE 14 MG/24 HOURS TOPICAL PATCH TD SCH (16:13)
[2024-05-04] MEDS: PRENATAL VITAMINS W/ FOLIC ACID TABLET (FP) PO SCH (16:14)
[2024-05-04] MEDS ORDERED: chlordiazePOXIDE HCL 25 MG CAPSULE ONE (18:22)
[2024-05-04] MEDS: chlordiazePOXIDE HCL 25 MG CAPSULE PO SCH (18:23)
[2024-05-04] MEDS: METHOCARBAMOL 500 MG TABLET PO PRN (22:16)
[2024-05-04] MEDS: MELATONIN 5 MG TABLETS PO SCH (22:16)
[2024-05-04] MEDS: THIAMINE 100 MG TABLET PO SCH (22:16)
[2024-05-04] MEDS: IBUPROFEN 600 MG TABLET (FP) PO PRN (22:17)
[2024-05-05] MEDS: BICTEGRAV/EMTRICIT/TENOFOV (BIKTARVY) 50-200-25 MG TABLET PO SCH (10:33)
[2024-05-05] MEDS: PANTOPRAZOLE 20 MG TABLET PO SCH (10:33)
[2024-05-05] MEDS: ASPIRIN 81 MG CHEWABLE TABLETS PO SCH (10:33)
[2024-05-05] MEDS: NALTREXONE HCL 50 MG TABLET PO ONE (10:41)
[2024-05-05] MEDS: amLODIPine BESYLATE 10 MG TABLET (FP) PO SCH (10:41)
[2024-05-05] MEDS: FLU VACCINE (FLULAVAL) PF 45 MCG/0.5 ML SYRINGE 2024-2025 IM ONE (11:18)
[2024-05-05] MEDS: cloNIDine HCL 0.1 MG TABLET PO ONE (14:30)
[2024-05-05 15:04] LABS: HEMATOCRIT 38.1 % (35.4-49); HEMOGLOBIN 11.8 GM/dL (11.7-16.9); MCH 23.3 pg (25.7-33.7); MCHC 30.9 g/dl (32.0-35.9); MEAN CELL VOLUME 75.4 fl (80-96); MEAN PLT VOLUME 8.9 fl (7.5-11.1); PLATELET COUNT 167 10^3/uL (134-434); RBC 5.05 M/mm3 (4.00-5.60); WHITE BLOOD COUNT 3.7 K/mm3 (4.0-10.0)
[2024-05-05 15:32] LABS: POTASSIUM 3.2 mmol/L (3.5-5.1)
[2024-05-05 15:34] LABS: CALCIUM 8.8 mg/dL (8.5-10.1)
[2024-05-05 15:35] LABS: BLOOD UREA NITROGEN 11.6 mg/dL (7-18)
[2024-05-05 15:38] LABS: CREATININE 1.2 mg/dL (0.55-1.3)
[2024-05-05 15:39] LABS: BILIRUBIN,TOTAL 0.3 mg/dL (0.2-1); TOT PROT 7.3 g/dl (6.4-8.2)
[2024-05-05] MEDS: POTASSIUM CHLORIDE ORAL LIQUID 20 MEQ/15 ML PO ONE (17:57)
[2024-05-06] MEDS: chlordiazePOXIDE HCL 25 MG CAPSULE PO SCH (05:14)
[2024-05-06] MEDS: NALTREXONE HCL 50 MG TABLET PO SCH (10:09)
[2024-05-07] MEDS ORDERED: chlordiazePOXIDE HCL 10 MG CAPSULE PO PRN
[2024-05-07] MEDS: chlordiazePOXIDE HCL 10 MG CAPSULE PO SCH (05:22)
[2024-05-08] MEDS: chlordiazePOXIDE HCL 10 MG CAPSULE PO SCH (05:34)
[2024-05-08] MEDS: BICTEGRAV/EMTRICIT/TENOFOV (BIKTARVY) 50-200-25 MG TABLET PO SCH (17:25)
[2024-05-09] MEDS: chlordiazePOXIDE HCL 10 MG CAPSULE PO ONE (05:08)
[2024-05-09 09:21] VITALS: BP 129/82; PULSE 96; RESP 18; TEMP 99.5
[2024-05-09] MEDS: NALOXONE (NYS OPIOID OVERDOSE PROGRAM) 4 MG/0.1 ML SPRAY NS PRN (11:46)
[2024-05-12] MEDS ORDERED: ERGOCALCIFEROL (VIT D2) 50,000 UNIT (1.25 MG) CAPSULE PO SCH (10:00)
== END 2024-05-09 11:43 | disposition home or self-care (01) | DRG 774 ==
LOC: YASAS 11:57 → Y3N 15:12
PROVIDERS: ADMIT Allergy & Immunology; ATTEND Surgery
PROC: HZ2ZZZZ Detoxification Services for Substance Abuse Treatment (ICD-10-PCS; principal; 2024-05-04)
DX: F10.230 Alcohol dependence with withdrawal, uncomplicated (principal); F14.20 Cocaine dependence, uncomplicated; F17.210 Nicotine dependence, cigarettes, uncomplicated; F10.282 Alcohol dependence with alcohol-induced sleep disorder; F10.24 Alcohol dependence with alcohol-induced mood disorder; F32.9 Major depressive disorder, single episode, unspecified; Z21 Asymptomatic human immunodeficiency virus [HIV] infection status; E87.6 Hypokalemia; G47.00 Insomnia, unspecified; I10 Essential (primary) hypertension; K21.9 Gastro-esophageal reflux disease without esophagitis; Z79.899 Other long term (current) drug therapy
CPT/HCPCS: 36415; 80053; 80305; 80307; 84132; 85027; 86780; 90656; 93005; 93010; G0008